=== PATIENT | male | born 1955 | race Caucasian/White ===

== ENCOUNTER 2016-08-09 09:10 | Emergency (ER) | payer OTHER ==
[~2016-08-09] VITALS: Ht 177.8 cm; Wt 115.8 kg
[~2016-08-09 09:10] MED LIST: ATOR-24 PO; CITA20TA4 PO; DIPH1TAB87 PO; FAMO20TA11 PO; NAPR-1169 PO; PRLSR20 PO
[2016-08-09 09:13] VITALS: Ht 177.8 cm; Wt 115.8 kg
[2016-08-09] MEDS ORDERED: SODIUM CHLORIDE 0.9% 1000ML 1,000 ML IV STA (10:07)
[2016-08-09] MEDS ORDERED: OPTIRAY 320 IV PRN (10:15)
[2016-08-09 10:24] LABS: HEMATOCRIT 46.3 % (42-52); MEAN CELL VOLUME 91.3 fL (80-100); MEAN CORPUSCULAR HGB CONC 33.9 g/dl (32-36); MEAN PLATELET VOLUME 9.4 fL (7.4-10.4); PLATELET COUNT 224 K/uL (130-400); RED BLOOD COUNT 5.07 M/uL (4.7-6.1); WHITE BLOOD COUNT 23.26 K/uL (4.8-10.8)
[2016-08-09 10:41] LABS: ALT/SGPT 27 U/L (12-78); BLOOD UREA NITROGEN 20 mg/dl (7-18); BUN/CREATININE RATIO 15.4 (10-20); CALCIUM 8.9 mg/dl (8.5-10.1); CARBON DIOXIDE 22 mmol/L (21-32); CHLORIDE 105 mmol/L (98-107); GLUCOSE 211 mg/dl (70-99); POTASSIUM 4.2 mmol/L (3.5-5.1); SODIUM 139 mmol/L (136-145)
[2016-08-09 10:44] LABS: ALKALINE PHOSPHATASE 99 U/L (45-117); AST/SGOT 15 U/L (15-37); BASO % 0.1 %; BASO ABS # 0.03 K/uL (0-0.2); COMPLETE YES; IG% 0.3 %; LYMPH % 6.1 %; LYMPH ABS # 1.42 K/uL (1.2-3.4); MONO % 4.5 %; OVALOCYTES 1+
[2016-08-09 12:03] LABS: URINE APPEARANCE CLEAR (CLEAR); URINE BILIRUBIN NEG (NEG); URINE COLOR YELLOW; URINE NITRITE NEG (NEG); UROBILINOGEN NEG (NEG); ZZUR CULT IF INDIC CLEAN CATCH NO
[2016-08-09 12:04] LABS: MANUAL MICROSCOPIC REQUIRED? NO; REVIEW REQ? NO
--- NOTE | 2016-08-09 13:26 | DIAGNOSTIC IMAGING REPORT ---
CT ABD/PELVIS IV AND ORAL CONT CLINICAL HISTORY: Left lower quadrant abdominal pain COMPARISON STUDY: None. TECHNIQUE: Following the IV administration of 119 mL of Optiray-320, CT scan of the abdomen and pelvis was performed from the lung bases to the proximal femurs. Images are reviewed in the axial, sagittal, and coronal planes. IV contrast was administered without complication. CT DOSE: 1694.62 mGy.cm FINDINGS: Lower chest: There are borderline enlarged mediastinal lymph nodes. There is right middle lobe consolidation. There is fluid within the right middle lobe bronchus. There are coronary artery calcifications present. Liver: There is mild hepatic steatosis. No focal masses are visualized. Gallbladder: Unremarkable. Spleen: Normal in size and attenuation. Pancreas: There is a 2 cm cystic lesion within the uncinate process. This may represent a sidebranch IPMN. 12 month follow-up is recommended. There is no ductal dilatation. Adrenal glands: Unremarkable. Kidneys: No solid renal masses are visualized. There is a 3 cm left renal cortical cyst. Left renal parapelvic cysts are also visualized. Bowel: There are no transition zones indicate bowel obstruction. By history the appendix is absent. Borderline sigmoid wall thickening is likely secondary to a nondistended segment. There are no findings to indicate acute diverticulitis. Peritoneum: There is no intraperitoneal free air or abdominal ascites. Vasculature: The abdominal aorta is normal in course and caliber. Adenopathy: There are no pathologically enlarged lymph nodes within the abdomen or pelvis. Pelvic viscera: The bladder, and pelvic viscera are unremarkable. Skeletal structures: No destructive osseous lesions are seen. IMPRESSION: 1. No evidence of bowel obstruction. No evidence of free air 2. 2 cm cystic lesion within the pancreatic head, possibly representing IPMN. 12 month follow-up is recommended 3. Borderline sigmoid wall thickening, likely secondary to a nondistended segment 4. No evidence of acute diverticulitis 5. Dense consolidation of the right middle lobe, consistent with a pneumonia. Clinical correlation is advocated. Films subsequent to treatment are recommended in follow-up. 6. Mild mediastinal lymphadenopathy Electronically signed by: Bandar Kaye M.D. 08/09/2016 1:24 PM
--- NOTE | 2016-08-09 14:32 | DIAGNOSTIC IMAGING REPORT ---
CHEST 2 VIEWS ROUTINE CLINICAL HISTORY: cough COMPARISON STUDY: No previous studies for comparison. FINDINGS: There is dense consolidation of the right middle lobe, consistent with a pneumonia. Films subsequent to treatment are recommended in follow-up. There is no failure. There are no pleural effusions.[ IMPRESSION: Right middle lobe pulmonary consolidation consistent with pneumonia. Films subsequent to treatment are recommended in follow-up. Electronically signed by: Bandar Kaye M.D. 08/09/2016 2:30 PM
[2016-08-09] MEDS ORDERED: LEVO-366 PO (15:00)
[2016-08-09] MEDS ORDERED: LEVOFLOXACIN 250 MG TAB PO STA (15:06)
--- NOTE | 2016-08-09 15:06 | EMERGENCY ROOM VISIT NOTE ---
History First contact with patient: 09:36 Chief Complaint: ILLNESS Stated Complaint: COUGH,NAUSEA,WEAKNESS,BODY ACHES History of Present Illness The patient is a 61 year old male who presents to the Emergency Room with complaints of body aches, intermittent coughing for one week. The patient states that today he became nauseated and vomited twice. He also is complaining of left lower abdominal pain. The patient denies any change in bowel habits. The patient denies any urinary symptoms of frequency, urgency, dysuria. The patient denies any known fever. The patient had an appendectomy in the past. The patient denies any history of kidney stones. Review of Systems 10 system review was performed and was negative unless stated otherwise history of present illness. Past Medical/Surgical History Medical Problems: (1) GERD (gastroesophageal reflux disease) (2) Hyperlipidemia (3) Hypertension Surgical Problems: (1) History of arthroscopic knee surgery Family History Patient reports no known family medical history. Social History Smoking Status: Never Smoker Alcohol Use: occasionally Drug Use: none Marital Status: Occupation Status: employed Current/Historical Medications Scheduled Atorvastatin (Lipitor), 40 MG PO DAILY AFTERNOON Citalopram Hydrobromide (Citalopram Hydrobromide), 20 MG PO HS Levofloxacin (Levaquin), 500 MG PO DAILY Naproxen (Naprosyn), 500 MG PO BID Omeprazole (Prilosec), 20 MG PO QAM Scheduled PRN Famotidine (Pepcid), 20 MG PO DAILY PRN for PRN Allergies Coded Allergies: Lisinopril (Unverified Allergy, Intermediate, LIPS SWELL, 08/09/16) Physical Exam Vital Signs Date Time Temp Pulse Resp B/P Pulse Ox O2 Delivery O2 Flow Rate FiO2 08/09/16 12:59 85 18 123/80 96 Room Air 08/09/16 10:59 84 16 120/75 95 Room Air 08/09/16 09:13 37.0 110 20 123/79 94 Room Air Physical Exam GENERAL: 61-year-old white male appears in no acute distress. MENTAL Status: Alert and oriented 3. MOUTH: Mucosa is moist NECK: Supple, no lymphadenopathy noted. No carotid bruits noted. LUNGS: Clear auscultation without wheezes rales or rhonchi. CARDIAC: Regular rate and rhythm without murmur. Pulses is full and equal throughout. BACK: No CVA tenderness noted. ABDOMEN: Positive bowel sounds all 4 quadrants. Soft, tenderness palpation in the left lower quadrant otherwise nontender to palpation without organomegaly or masses. EXTREMITIES: No cyanosis or edema noted. Medical Decision & Procedures ER Provider Diagnostic Interpretation: CT ABD/PELVIS IV AND ORAL CONT CLINICAL HISTORY: Left lower quadrant abdominal pain COMPARISON STUDY: None. TECHNIQUE: Following the IV administration of 119 mL of Optiray-320, CT scan of the abdomen and pelvis was performed from the lung bases to the proximal femurs. Images are reviewed in the axial, sagittal, and coronal planes. IV contrast was administered without complication. CT DOSE: 1694.62 mGy.cm FINDINGS: Lower chest: There are borderline enlarged mediastinal lymph nodes. There is right middle lobe consolidation. There is fluid within the right middle lobe bronchus. There are coronary artery calcifications present. Liver: There is mild hepatic steatosis. No focal masses are visualized. Gallbladder: Unremarkable. Spleen: Normal in size and attenuation. Pancreas: There is a 2 cm cystic lesion within the uncinate process. This may represent a sidebranch IPMN. 12 month follow-up is recommended. There is no ductal dilatation. Adrenal glands: Unremarkable. Kidneys: No solid renal masses are visualized. There is a 3 cm left renal cortical cyst. Left renal parapelvic cysts are also visualized. Bowel: There are no transition zones indicate bowel obstruction. By history the appendix is absent. Borderline sigmoid wall thickening is likely secondary to a nondistended segment. There are no findings to indicate acute diverticulitis. Peritoneum: There is no intraperitoneal free air or abdominal ascites. Vasculature: The abdominal aorta is normal in course and caliber. Adenopathy: There are no pathologically enlarged lymph nodes within the abdomen or pelvis. Pelvic viscera: The bladder, and pelvic viscera are unremarkable. Skeletal structures: No destructive osseous lesions are seen. IMPRESSION: 1. No evidence of bowel obstruction. No evidence of free air 2. 2 cm cystic lesion within the pancreatic head, possibly representing IPMN. 12 month follow-up is recommended 3. Borderline sigmoid wall thickening, likely secondary to a nondistended segment 4. No evidence of acute diverticulitis 5. Dense consolidation of the right middle lobe, consistent with a pneumonia. Clinical correlation is advocated. Films subsequent to treatment are recommended in follow-up. 6. Mild mediastinal lymphadenopathy Electronically signed by: Bandar Kaye M.D. 08/09/2016 1:24 PM Laboratory Results 1/2/17 10:15 Red Blood Count 5.07, Mean Corpuscular Volume 91.3, Mean Corpuscular Hemoglobin 31.0, Mean Corpuscular Hemoglobin Concent 33.9, Mean Platelet Volume 9.4, Neutrophils (%) (Auto) 89.0, Lymphocytes (%) (Auto) 6.1, Monocytes (%) (Auto) 4.5, Eosinophils (%) (Auto) 0.0, Basophils (%) (Auto) 0.1, Neutrophils # (Auto) 20.69, Lymphocytes # (Auto) 1.42, Monocytes # (Auto) 1.04, Eosinophils # (Auto) 0.01, Basophils # (Auto) 0.03 08/09/16 10:15 Test 08/09/16 10:15 08/09/16 11:46 White Blood Count 23.26 K/uL (4.8-10.8) Red Blood Count 5.07 M/uL (4.7-6.1) Hemoglobin 15.7 g/dL (14.0-18.0) Hematocrit 46.3 % (42-52) Mean Corpuscular Volume 91.3 fL (80-100) Mean Corpuscular Hemoglobin 31.0 pg (25-34) Mean Corpuscular Hemoglobin Concent 33.9 g/dl (32-36) Platelet Count 224 K/uL (130-400) Mean Platelet Volume 9.4 fL (7.4-10.4) Neutrophils (%) (Auto) 89.0 % Lymphocytes (%) (Auto) 6.1 % Monocytes (%) (Auto) 4.5 % Eosinophils (%) (Auto) 0.0 % Basophils (%) (Auto) 0.1 % Neutrophils # (Auto) 20.69 K/uL (1.4-6.5) Lymphocytes # (Auto) 1.42 K/uL (1.2-3.4) Monocytes # (Auto) 1.04 K/uL (0.11-0.59) Eosinophils # (Auto) 0.01 K/uL (0-0.5) Basophils # (Auto) 0.03 K/uL (0-0.2) RDW Standard Deviation 49.7 fL (36.4-46.3) RDW Coefficient of Variation 14.8 % (11.5-14.5) Immature Granulocyte % (Auto) 0.3 % Immature Granulocyte # (Auto) 0.07 K/uL (0.00-0.02) Ovalocytes 1+ Anion Gap 12.0 mmol/L (3-11) Est Creatinine Clear Calc Drug Dose 74.1 ml/min Estimated GFR () 67.3 Estimated GFR (Non- 58.1 BUN/Creatinine Ratio 15.4 (10-20) Calcium Level 8.9 mg/dl (8.5-10.1) Total Bilirubin 0.5 mg/dl (0.2-1) Direct Bilirubin < 0.1 mg/dl (0-0.2) Aspartate Amino Transf (AST/SGOT) 15 U/L (15-37) Alanine Aminotransferase (ALT/SGPT) 27 U/L (12-78) Alkaline Phosphatase 99 U/L (45-117) Total Protein 7.7 gm/dl (6.4-8.2) Albumin 3.2 gm/dl (3.4-5.0) Lipase 73 U/L (73-393) Urine Color YELLOW Urine Appearance CLEAR (CLEAR) Urine pH 5.0 (4.5-7.5) Urine Specific Lehr 1.010 (1.000-1.030) Urine Protein 1+ (NEG) Urine Glucose (UA) NEG (NEG) Urine Ketones NEG (NEG) Urine Occult Blood NEG (NEG) Urine Nitrite NEG (NEG) Urine Bilirubin NEG (NEG) Urine Urobilinogen NEG (NEG) Urine Leukocyte Esterase NEG (NEG) Urine WBC (Auto) 1-5 /hpf (0-5) Urine RBC (Auto) 0-4 /hpf (0-4) Urine Hyaline Casts (Auto) 1-5 /lpf (0-5) Urine Epithelial Cells (Auto) 10-20 /lpf (0-5) Urine Bacteria (Auto) NEG (NEG) Medications Administered Medications (Trade) Dose Ordered Sig/Salma Route Start Time Stop Time Status Last Admin Dose Admin Sodium Chloride (Nss 1000ml) 1,000 ml @ 999 mls/hr Q1H1M STAT IV 08/09/16 10:07 08/09/16 11:07 DC 08/09/16 10:19 999 MLS/HR ED Course The patient was evaluated. The patient was offered antinausea medicine as well as pain medication but the patient declined. IV access was obtained. The patient was given 1 L normal saline wide-open. CBC and differential, renal profile, LFTs and lipase levels were ordered. Labs are reviewed. Patient's white count was elevated 23,000 otherwise labs are unremarkable. Urinalysis was ordered. CT of the abdomen and pelvis was ordered and interpreted by the radiologist as above with findings of right middle lobe pneumonia and other incidental findings which the patient was informed of immediately. Patient was informed of all findings. The patient's case was discussed with Dr. Mcgovern who agree with treatment plan. The patient was given Levaquin 500 mg by mouth while in the emergency room. The patient was discharged to home in stable condition.. Medical Decision Differential diagnoses include reflux, gastritis, gastroenteritis, pancreatitis , cholelithiasis, cholecystitis,, mesenteric ischemia, pyelonephritis, urinary tract infection, renal colic, diverticulitis, shingles, bowel obstruction, intussusception, hernia, , pneumonia, influenza Impression Primary Impression: Pneumonia Additional Impression: cystic lesion pancreas Departure Information Dispostion Home / Self-Care Condition GOOD Prescriptions Levofloxacin (Levaquin) 500 Mg Tab 500 MG PO DAILY for 6 Days, #6 TAB Prov: Beatrice Langley PA-C 08/09/16 Referrals Megan Ambriz M.D. (PCP) Forms HOME CARE DOCUMENTATION FORM, IMPORTANT VISIT INFORMATION, WORK / SCHOOL INSTRUCTIONS Patient Instructions A Signature Page, [facility], Pneumonia (Bacterial[facility] - [facility] Additional Instructions Tylenol and/or ibuprofen as needed for fever and body aches. Take Levaquin as prescribed. Follow-up with your family physician in 2 days for recheck. At that time they can set up follow-up chest x-ray as well as repeat CT of the abdomen for evaluation of cystic lesion on her pancreas. If symptoms should worsen, return to ER.
[2016-08-09 15:27] VITALS: BP 123/80; PULSE 85; TEMP 37; O2SAT 96
[2016-10-07] MEDS ORDERED: TRMO2580 TOP (09:08)
[2016-10-23] MEDS ORDERED: RXC5 PO (08:09)
== END 2016-08-09 15:28 | disposition home or self-care (01) ==
LOC: C.EDB 09:11
DX: J18.9 Pneumonia, unspecified organism (principal); K86.2 Cyst of pancreas; R11.10 Vomiting, unspecified; I10 Essential (primary) hypertension; E78.5 Hyperlipidemia, unspecified; K21.9 Gastro-esophageal reflux disease without esophagitis; Z79.899 Other long term (current) drug therapy

== ENCOUNTER 2016-10-22 06:00 | Inpatient (IN) | payer OTHER ==
[2016-10-07 09:09] VITALS: BMI 38.0
--- NOTE | 2016-10-07 09:55 | PAT Medication Instructions ---
Service Date Oct 07, 2016. Current Home Medication List Atorvastatin (Lipitor), 40 MG PO QAM Citalopram Hydrobromide (Citalopram Hydrobromide), 20 MG PO QAM Naproxen (Naprosyn), 500 MG PO QAM Omeprazole (Prilosec), 20 MG PO BID Triamcinolone Acetonide (Topic (Triamcinolone Acet 0.025%), 1 APPLN TOP BID PRN for PRN Medication Instructions For Your Scheduled Surgery - Check with surgeon for instructions: Naproxen (Naprosyn), 500 MG PO QAM - Hold the following medications 24 hours prior to surgery: Triamcinolone Acetonide (Topic (Triamcinolone Acet 0.025%), 1 APPLN TOP BID PRN for PRN - Take the following medications the morning of surgery with a sip of water: Omeprazole (Prilosec), 20 MG PO BID Atorvastatin (Lipitor), 40 MG PO QAM Citalopram Hydrobromide (Citalopram Hydrobromide), 20 MG PO QAM - Take the following medications as scheduled the night before surgery: Omeprazole (Prilosec), 20 MG PO BID If you have any questions please call us at [phone] (Rebecca Cooper PA-C) or [phone] or [phone]
[2016-10-07 10:22] LABS: BASO % 0.3 %; BASO ABS # 0.03 K/uL (0-0.2); COMPLETE YES; EOS % 2.8 %; HEMATOCRIT 42.1 % (42-52); IG% 0.2 %; LYMPH % 27.9 %; LYMPH ABS # 2.73 K/uL (1.2-3.4); MEAN CELL VOLUME 90.9 fL (80-100); MEAN CORPUSCULAR HEMOGLOBIN 30.9 pg (25-34); MEAN PLATELET VOLUME 9.3 fL (7.4-10.4); MONO % 8.3 %; NEUT % 60.5 %; PLATELET COUNT 270 K/uL (130-400); RED BLOOD COUNT 4.63 M/uL (4.7-6.1); WHITE BLOOD COUNT 9.79 K/uL (4.8-10.8)
[2016-10-07 10:30] LABS: PARTIAL THROMBOPLASTIN RATIO 1.2; PROTHROMBIN TIME (PATIENT) 10.7 SECONDS (9.0-12.0)
--- NOTE | 2016-10-07 10:30 | DIAGNOSTIC IMAGING REPORT ---
CHEST PREADMISSION(PA/LAT) CLINICAL HISTORY: Preoperative evaluation. COMPARISON STUDY: Chest radiograph August 09, 2016. FINDINGS: Lung volumes are normal. There is no pneumothorax or pleural effusion. Right lower lung airspace opacity shown on exam of August 09, 2016 has resolved. There is no evidence of pulmonary edema. Mild cardiomegaly is noted. IMPRESSION: 1. No acute cardiopulmonary findings. 2. Interval resolution of right middle lobe pneumonia. 3. Mild cardiomegaly. Electronically signed by: Ras Manriquez M.D. 10/07/2016 10:29 AM Dictated Date/Time: 10/07/2016 10:28 AM
[2016-10-07 10:32] LABS: URINE APPEARANCE CLEAR (CLEAR); URINE BILIRUBIN NEG (NEG); URINE COLOR DK YELLOW; URINE EPITHELIAL CELL AUTO 20-30 /lpf (0-5); URINE NITRITE NEG (NEG); URINE SPECIFIC GRAVITY 1.024 (1.000-1.030); UROBILINOGEN NEG (NEG)
[2016-10-07 10:34] LABS: MANUAL MICROSCOPIC REQUIRED? NO; REVIEW REQ? NO
[2016-10-07 10:48] LABS: CALCIUM 8.8 mg/dl (8.5-10.1); CREATININE 0.9 mg/dl (0.60-1.40); POTASSIUM 4.5 mmol/L (3.5-5.1)
--- NOTE | 2016-10-20 17:07 | HISTORY & PHYSICAL EXAMINATION ---
DATE OF ADMISSION: 10/22/2016 CHIEF COMPLAINT: Rotator cuff arthropathy of the left shoulder. HISTORY OF PRESENT ILLNESS: Landon is a very pleasant 61-year-old male who has been complaining a 40-year history of left shoulder pain. Over the last year his shoulder pain has gotten much worse. He has had multiple injections with very little relief. An MRI of his shoulder did show a retracted irreparable rotator cuff tear. He is unable to sleep at night. He has difficulty doing simple daily activities and is unable to raise his arm above chest level. After failing extensive conservative treatment, he has elected to proceed with a reverse shoulder arthroplasty. 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 PAST SURGICAL HISTORY: Significant for tonsillectomy in 1957, appendectomy in 1969, bilateral knee arthroscopies. ALLERGIES: LISINOPRIL. MEDICATIONS: Include Celexa 20 mg daily, Lipitor 40 mg daily, Naprosyn as needed for pain, triamcinolone cream as needed. FAMILY HISTORY: Noncontributory. SOCIAL HISTORY: Denies any tobacco, alcohol or IV drug use. REVIEW OF SYSTEMS: He complains of left shoulder pain. All other pertinent review of systems are negative. PHYSICAL EXAMINATION: GENERAL: He is awake, alert and oriented x3. He is in no apparent distress. He is very pleasant. HEAD, EYES, EARS, NOSE, AND THROAT: Pupils are equal, round and reactive to light. Extraocular motion intact. Oral mucosa is pink and moist. HEART: Regular rate per radial pulse. LUNGS: Estrella symmetrically bilaterally with no audible breath sounds. ABDOMEN: Soft, nontender, nondistended. MUSCULOSKELETAL: On physical examination of his left shoulder, he has about 30 degrees of forward elevation, 30 degrees of abduction. Passively I can get him a little further, but he has a lot of pain. He has a lot of pain in the subacromial space and 4/5 muscle strength with external rotation, 3/5 muscle strength to full can testing and negative belly press test. MRI of the left shoulder does show a large retracted rotator cuff tear involving the entire supraspinatus and infraspinatus retracted back to the level of the glenoid with significant fat atrophy. IMPRESSION: Rotator cuff arthropathy of the left shoulder. PLAN: After failing years of conservative treatment and given his significantly limited functional status, I think he is best treated with a reverse shoulder arthroplasty. We will proceed with a [employer] comprehensive reverse shoulder arthroplasty. Postoperatively, he will be placed in a sling and kept overnight for postoperative medical treatment.
[~2016-10-22] VITALS: Ht 177.8 cm; Wt 121.2 kg
[2016-10-22] VITALS (10 sets, daily range): BP systolic 108–140; BP diastolic 71–93; PULSE 69–84; TEMP 36.4–36.7; O2SAT 93–100; Ht 177.8 cm; Wt 121.2 kg
[~2016-10-22 06:00] MED LIST changes: +ACETAMINOPHEN 500 MG TAB PO SCH; +CEFAZOLIN 3000 MG/65 ML D5W 65 ML IV SCH; -DIPH1TAB87 PO; -FAMO20TA11 PO; +FAMOTIDINE 20 MG TAB PO SCH; +GABAPENTIN 300 MG CAP PO SCH; +LACTATED RINGER'S 1000ML 1,000 ML IV SCH; +LACTATED RINGER'S 1000ML IV SCH; +ROPIVACAINE 5MG/ML 30 ML 150 MG, BUPIVACAINE/EPINEPHR 0.5% MPF 30 ML, KETOROLAC TROMETH... INFIL SCH; +TRMO2580 TOP
--- NOTE | 2016-10-22 06:57 | History & Physical Bridge Note ---
H&P Re-Evaluation Bridge Note: I have examined the patient, reviewed the History & Physical and in the interval since the performance of the History & Physical I have noted the following changes of clinical significance: No changes noted
[2016-10-22] MEDS ORDERED: FENTANYL CITRATE INJ 50 MCG/1 ML 2 ML VIAL ONE (07:05)
[2016-10-22] MEDS ORDERED: MIDAZOLAM HCL 1 MG/ML 2ML VIAL ONE (07:05)
[2016-10-22] MEDS ORDERED: ROPIVACAINE 0.5% 5 MG/ML 30 ML VIAL ONE (07:13)
[2016-10-22] MEDS ORDERED: ACET-1256 PO (07:23)
[2016-10-22] MEDS ORDERED: PROPOFOL IV EMULSION 10 MG/ML 20 ML VIAL IV ONE (07:31)
[2016-10-22] MEDS ORDERED: ROCURONIUM BROMIDE 10 MG/ML 5 ML VIAL ONE (07:31)
[2016-10-22] MEDS: TRANEXAMIC ACID INJ 1,000 MG in SODIUM CHLORIDE 0.9% 100ML 100 ML IV SCH ×2 (08:17→13:32)
[2016-10-22] MEDS ORDERED: BUPIVACAINE/EPINEPHRINE 0.5% MPF 1:200,000 30 ML VIAL ONE (09:13)
[2016-10-22] MEDS ORDERED: BACITRACIN 50000 UNIT VIAL ONE (09:14)
[2016-10-22] MEDS ORDERED: ORTHO JOINT ANESTHETIC ONE (09:29)
[2016-10-22] MEDS ORDERED: FENTANYL CITRATE INJ 50 MCG/1 ML 2 ML VIAL IV PRN (09:45)
[2016-10-22] MEDS ORDERED: ATROPINE SULFATE 0.1 MG/ML 5ML SYR IV PRN (09:45)
[2016-10-22] MEDS ORDERED: ONDANSETRON INJ 2 MG/ML 2 ML VIAL IV PRN ×2 (09:45→10:00)
[2016-10-22] MEDS ORDERED: EpHEDrine SULFATE INJ 50 MG/ML AMP IV PRN (09:45)
[2016-10-22] MEDS ORDERED: BISACODYL 10 MG SUPP PR PRN (10:00)
[2016-10-22] MEDS ORDERED: MAGNESIUM HYDROXIDE SUSP 30 ML UDC PO PRN (10:00)
[2016-10-22] MEDS ORDERED: SOD PHOSPHATE/SOD BIPHOSPHATE ENEMA 132 ML BTL PR PRN (10:00)
[2016-10-22] MEDS ORDERED: NALOXONE HCL 0.4 MG/1 ML VIAL/CARP IV PRN (10:00)
[2016-10-22] MEDS ORDERED: METOCLOPRAMIDE HCL INJ 5 MG/ML 2 ML VIAL IV PRN (10:00)
[2016-10-22] MEDS ORDERED: MoRPHine SULFATE 2 MG/ML CARP IV PRN (10:00)
[2016-10-22] MEDS ORDERED: DEXAMETHASONE SOD INJ 4 MG/ML VIAL ONE (10:10)
[2016-10-22] MEDS ORDERED: GLYCOPYRROLATE INJ 0.2 MG/ML VIAL ONE (10:10)
[2016-10-22] MEDS ORDERED: NEOSTIGMINE METHYLSULFATE 5 MG/5 ML SYR ONE (10:10)
[2016-10-22] MEDS ORDERED: ONDANSETRON INJ 2 MG/ML 2 ML VIAL ONE (10:10)
[2016-10-22] MEDS ORDERED: VANCOMYCIN HCL 1000MG/20ML VIAL ONE (10:49)
[2016-10-22] MEDS ORDERED: EpHEDrine SULFATE 50MG/5ML SYR ONE (11:15)
[2016-10-22] MEDS ORDERED: PHENYLEPHRINE 100MCG/ML 5ML SYR ONE (11:15)
--- NOTE | 2016-10-22 12:38 | DIAGNOSTIC IMAGING REPORT ---
LEFT SHOULDER MIN 2 VIEWS ROUTINE CLINICAL HISTORY: Postoperative evaluation. COMPARISON: Left shoulder radiographs October 06, 2016. FINDINGS: Alignment of the left shoulder arthroplasty is anatomic. A drain is in place. There is no fracture or unexpected radiopaque foreign body. IMPRESSION: Expected findings following left shoulder arthroplasty. Electronically signed by: Ras Manriquez M.D. 10/22/2016 12:37 PM Dictated Date/Time: 10/22/2016 12:25 PM
--- NOTE | 2016-10-22 13:06 | Anesthesiology Progress Note ---
Anesthesia Post Op Note Date & Time Oct 22, 2016 at 13:07 Vital Signs Pain Intensity: 0 Vital Signs Past 12 Hours Date Time Temp Pulse Resp B/P Pulse Ox O2 Delivery O2 Flow Rate FiO2 10/22/16 12:59 36.5 82 17 125/92 98 Nasal Cannula 2.0 10/22/16 12:20 36.4 73 14 134/89 98 Nasal Cannula 2 10/22/16 12:10 80 19 136/92 98 Nasal Cannula 2 10/22/16 12:00 79 22 145/96 100 Mask 10 10/22/16 11:50 75 14 155/100 100 Mask 10 10/22/16 11:41 36.0 78 14 149/94 99 Mask 10 10/22/16 07:09 36.7 84 20 129/93 96 Room Air Notes Mental Status: alert / awake / arousable, participated in evaluation Pt Amnestic to Procedure: Yes Nausea / Vomiting: adequately controlled Pain: adequately controlled Airway Patency, RR, SpO2: stable & adequate BP & HR: stable & adequate Hydration State: stable & adequate Anesthetic Complications: no major complications apparent
--- NOTE | 2016-10-22 13:25 | [facility] Post Operative Brief Note ---
Immediate Operative Summary Operative Date Oct 22, 2016. Pre-Operative Diagnosis Rotator cuff arthropathy of the left shoulder Post-Operative Diagnosis Rotator cuff arthropathy of the left shoulder Procedure(s) Performed Left reverse total shoulder arthroplasty Surgeon Dr. Frandy Berman Credit Compliance Officer Surgeon(s) Armond Glover PA-C Estimated Blood Loss 250cc Findings as above Specimens A. Left humeral head Complication(s) None Disposition Recovery Room / PACU
[2016-10-22] MEDS: D5W AND 1/2NSS + 20MEQ KCL 1,000 ML IV SCH ×2 (13:34→22:59)
--- NOTE | 2016-10-22 14:22 | OPERATIVE REPORT ---
DATE OF OPERATION: 10/22/2016 PREOPERATIVE DIAGNOSIS: Rotator cuff arthropathy of the left shoulder. POSTOPERATIVE DIAGNOSIS: Same. PROCEDURE: Left reverse total shoulder arthroplasty. SURGEON: Dr. Frandy Berman. GENERAL INTERNIST: Eric Glover PA-C, whose assistance was necessary for positioning the arm and helping with instrumentation. ANESTHESIA: General with a left interscalene nerve block. COMPLICATIONS: None. CONDITION: Stable to PACU. INDICATIONS: Landon is a pleasant 61-year-old male who presented to my office with chronic increasing left shoulder pain and inability to forward elevate his arm. MRI showed a large retracted irreparable rotator cuff tear. After failing conservative treatment, he elected to undergo a reverse shoulder arthroplasty. DESCRIPTION OF PROCEDURE: On 10/22/2016, he arrived at [facility] for the above procedure. He was seen in the preoperative holding area and the operative extremity was identified and signed. He was then taken back to the operating room, laid on the table in supine position and put under general anesthesia. He was then put into the beachchair position. The left shoulder was prepped and draped in sterile fashion. Time-out was done and the patient and operative extremity was properly identified. A deltopectoral approach was utilized. Dissection was taken down through the fascia and the anterior shoulder was exposed. The subscapularis was tenotomized off the lesser tuberosity with a centimeter of cuff tissue remaining and the proximal humerus was exposed. The supraspinatus and infraspinatus had been completely torn off. A drill was sent down the center of the humeral canal and sequential reaming up to a size 13 reamer was done. Off that reamer, a proximal humeral resection guide was placed and the proximal humerus was resected at 135 degrees of inclination and 20 degrees of retroversion. The glenoid was then exposed. Time was spent doing a complete circumferential capsular and labral release. A guide was set in the inferior aspect of the glenoid and a guidepin was placed at 10 degrees of inclination. The 25-mm baseplate was then reamed and the final baseplate was impacted into place. A single 35-mm central screw was placed followed by superior and inferior locking screw. I was able to get excellent fixation. A 41-mm standard eccentric glenosphere was then impacted into place. The proximal humerus was then exposed. Sequential broaching up to a size 13 broach was done. Off the broach, a standard humeral tray was placed. The shoulder was reduced, brought through a full range of motion and felt to be stable. Trials were removed. The final 13-mm mini stem was then impacted into place. The 44 poly was snapped onto the humeral tray and the ring lock mechanism was engaged. The humeral tray was impacted on the humeral stem. The shoulder was reduced, brought through a full range of motion and felt to be stable. The entire joint was then irrigated with 3 liters of normal saline solution with bacitracin. Surrounding soft tissues were all injected with 100 mL of an orthopedic pain control cocktail. The subscapularis was tenodesed back to the lesser tuberosity with transosseous FiberWire sutures and [id number] sutures. The shoulder was once again brought through a full range of motion and felt to be stable. Hemostasis was controlled. One gram of vancomycin powder was placed in the soft tissues. The skin was then closed with 2-0 Vicryl and 3-0 V-Loc suture and Prineo dressing. He was then placed in a regular arm sling, extubated, transferred to a [facility] and taken to the postanesthesia care unit in stable condition. He tolerated the procedure well. IMPLANTS USED: I used a [employer] comprehensive reverse left total shoulder arthroplasty system with a 25-mm mini baseplate, a 41 standard eccentric glenosphere, a size 13 mini stem and a standard humeral tray and bearing. No cement was used during the case. I attest to the content of the Intraoperative Record and any orders documented therein. Any exceptio ns are noted below.
[2016-10-22] MEDS: KETOROLAC TROMETHAMINE 30 MG/ML VIAL IV. SCH ×2 (15:12→20:24)
[2016-10-22] MEDS: ACETAMINOPHEN IV 1,000 MG in EMPTY BAG 0 ML IV SCH (15:12)
[2016-10-22] MEDS ORDERED: PNEUMOCOCCAL ADMINISTRATION CHARGE ONE (16:15)
[2016-10-22] MEDS ORDERED: PNEUMOCOCCAL POLYSACCHARIDES 25 MCG/0.5 ML VIAL/SYR IM. ONE (16:15)
[2016-10-22] MEDS: CEFAZOLIN IV 2,000 MG in DEXTROSE 5% 50ML 50 ML IV SCH (17:33)
[2016-10-22] MEDS: DOCUSATE SODIUM 100 MG CAP PO SCH (20:25)
[2016-10-22] MEDS ORDERED: SENNA 8.6 MG TAB PO SCH (21:00)
[2016-10-23] MEDS: ACETAMINOPHEN IV 1,000 MG in EMPTY BAG 0 ML IV SCH ×2 (00:11→08:18)
[2016-10-23] MEDS: CEFAZOLIN IV 2,000 MG in DEXTROSE 5% 50ML 50 ML IV SCH (01:36)
[2016-10-23] MEDS: KETOROLAC TROMETHAMINE 30 MG/ML VIAL IV. SCH ×2 (01:36→08:18)
[2016-10-23 03:50] VITALS: BP 116/73; PULSE 71; TEMP 36.4; O2SAT 96
[2016-10-23] MEDS: OXYCODONE HCL IR 5 MG TAB (IMMEDIATE RELEASE) PO PRN ×2 (04:20→09:30)
[2016-10-23 05:51] LABS: HEMATOCRIT 37.7 % (42-52); MEAN CORPUSCULAR HEMOGLOBIN 31.2 pg (25-34); MEAN PLATELET VOLUME 9.7 fL (7.4-10.4); PLATELET COUNT 242 K/uL (130-400); WHITE BLOOD COUNT 14.57 K/uL (4.8-10.8)
[2016-10-23 06:23] LABS: CALCIUM 8.7 mg/dl (8.5-10.1); POTASSIUM 4.5 mmol/L (3.5-5.1)
[2016-10-23 07:59] VITALS: BP 116/74; PULSE 65; TEMP 36.5; O2SAT 94
[2016-10-23] MEDS ORDERED: RXC5 PO (08:09)
--- NOTE | 2016-10-23 08:11 | Discharge Instructions ---
Discharge Instructions Date of Service Oct 23, 2016. Admission Reason for Admission: Left Shoulder Pain, Full Thickness Rotator Cuff Te Discharge Discharge Diagnosis / Problem: Left Reverse Total Shoulder Discharge Goals Goal(s): Decrease discomfort, Improve function Activity Recommendations Activity Limitations: as noted below Shower/Bathe: may shower/bathe in 3 days . Instructions / Follow-Up Instructions / Follow-Up Activity and Therapy Recommendations: * Wear your sling for 3 weeks, unless otherwise instructed. You may remove your sling to shower and to dress, but otherwise, you should be in your sling at all times, including while sleeping * The shoulder replacement is very stable and you can use your hand while in the sling * Physical Therapy should start about 3-5 days from your day of surgery. Therapy will last about 8-12 weeks * You were shown a series of exercises in the hospital. Do these exercises daily including the exercises you were shown in physical therapy. Medications: * Narcotic You will likely be sent home from the hospital with a prescription for the narcotic pain medication that worked best throughout your stay. * Other medications may be prescribed for specific circumstances. If you have any questions, please call the office at . * Resume previous home medications unless otherwise instructed Dressing Care: You will likely have a Prineo dressing covering your incision. This looks like a glued on clear mesh dressing. Do not remove this dressing until you follow- up in my office in 2-3 weeks. Its pretty hard to peel it off. You may leave the Prineo dressing uncovered or cover it if it is draining a little bit. No further dressing care is required Showering: You may shower 3 days from the day of surgery. Leave the Prineo dressing intact and let the soapy shower water run over it. Do not scrub or soak the dressing or the incision. Things To Watch For: * Drainage from the incision site that occurs more than one week after your surgery. * Increased redness at the incision site. * Fever above 102 degrees Fahrenheit. * Unusual chest pain or shortness of breath. * Call [facility] at with any of the above problems Follow-Up Visit: Follow-up with Dr. Berman 2-3 weeks after your day of surgery. An appointment was probably scheduled when you signed-up for surgery in the office. If you have any questions call Office Instructions: More detailed instructions as well as Frequently Asked Questions were provided in a folder by our office when you signed-up for surgery. Please review these instructions when you get home. If you have any further questions or concerns, please feel free to call the office at [phone] Current Hospital Diet Patient's current hospital diet: Regular Diet Discharge Diet Recommended Diet: Regular Diet Procedures Procedures Performed: Left reverse total shoulder arthroplasty Pending Studies Studies pending at discharge: no Medical Emergencies . Who to Call and When: Medical Emergencies: If at any time you feel your situation is an emergency, please call 911 immediately. . Non-Emergent Contact Non-Emergency issues call your: Surgeon Call Non-Emergent contact if: wound has increased drainage, wound has increased redness . "Provider Documentation" section prepared by Frandy Berman. VTE Core Measure Inpt VTE Proph given/why not?: Treatment not indicated
[2016-10-23] MEDS: DOCUSATE SODIUM 100 MG CAP PO SCH (08:20)
--- NOTE | 2016-10-23 08:42 | DISCHARGE SUMMARY ---
DATE OF DISCHARGE: 10/23/2016. DISCHARGE DIAGNOSIS: Cuff arthropathy of the left shoulder. PROCEDURE: Left reverse shoulder arthroplasty on 10/22/[address] Frandy Berman. DISCHARGE INSTRUCTIONS: 1. Oxycodone 5 mg every 4 hours as needed for pain. 2. Tylenol 1000 mg every 8 hours as needed. 3. Lipitor 40 mg daily. 4. Celexa 20 mg daily. 5. Naprosyn 500 mg daily. 6. Prilosec 20 mg twice a day. 7. Triamcinolone cream as needed. 8. Left arm sling for 3 weeks. 9. Follow up with Dr. Berman in 2 weeks. 10. May shower 3 days from the day of surgery. 11. Call the office of Dr. Berman with any questions or concerns. HOSPITAL COURSE: Landon is a pleasant 61-year-old male who presented to my office with significant shoulder pain and weakness. MRI and clinical examination showed irreparable rotator cuff tear. After failing years of conservative treatment, he elected to undergo a reverse left shoulder arthroplasty. On 10/22/2016 he arrived at [facility] for the above procedure. He was seen in the preoperative holding area and the operative extremity was identified and signed. He was given a preoperative antibiotic and underwent a left reverse shoulder arthroplasty without complications. Postoperatively, he was placed in an arm sling and discharged to general orthopedic floor. His hospital course was uneventful. On postop day #1, his H\T\H was stable at 12.8 and 37.7. He was having mild pain in the shoulder but was controlled on the oxycodone. He is wearing his sling as instructed. He was able to participate well with physical therapy and was subsequently discharged to home with the above instructions.
--- NOTE | 2016-10-23 08:44 | PROGRESS NOTE ---
DATE: 10/23/2016 DATE: 10/23/2016. CHIEF COMPLAINT: Status post reverse left shoulder arthroplasty postop day #1. PROGRESS: Landon was seen and examined at bedside today. Overall, he is doing very well. He says he really does not have much pain in his shoulder. He is wearing a sling as instructed. He was able to get some sleep last night and has no complaints. PHYSICAL EXAMINATION: LEFT SHOULDER: The radial, median and ulnar nerves were all checked and intact. The axillary nerve was not definitively checked yet. He is wearing his sling as instructed. His dressing is clean and dry and the drain is to suction. LABORATORY DATA: He has an H\T\H today of 12.8 and 37.7. His glucose is 126. His vital signs are all stable on room air. He is voiding on his own. X-rays postoperatively of the left shoulder showed the prosthesis to be in anatomical alignment without any evidence of fracture, dislocation or loosening. IMPRESSION: Status post reverse left shoulder arthroplasty postop day #1. PLAN: At this point, he is doing very well. He is happy with his progress. He will get physical therapy this morning. If he participates well with physical therapy will discharge him home.
[2016-10-23] MEDS ORDERED: MULTIVITAMIN TAB PO SCH (09:00)
[2016-10-23] MEDS ORDERED: ATORVASTATIN 40 MG TAB PO SCH (09:00)
[2016-10-23] MEDS ORDERED: CITALOPRAM 20 MG TAB PO SCH (09:00)
[2016-10-23] MEDS ORDERED: PANTOprazole SOD 40 MG TAB PO SCH (09:00)
[2016-10-23] MEDS: D5W AND 1/2NSS + 20MEQ KCL 1,000 ML IV SCH (09:30)
[2016-10-23 09:34] VITALS: BP 116/74; PULSE 65; TEMP 36.5; O2SAT 94
== END 2016-10-23 10:12 | disposition home or self-care (01) | DRG 483 ==
LOC: ENRESERVDT → ENRESERVTM → C.ACU 06:00 → C.3E 06:30
PROVIDERS: ADMIT Orthopaedic Surgery; ATTEND Orthopaedic Surgery
PROC: 0RRK00Z Replacement of Left Shoulder Joint with Reverse Ball and Socket Synthetic Substitute, Open Approach (ICD-10-PCS; principal; 2016-10-22 09:00)
DX: M19.012 Primary osteoarthritis, left shoulder (principal); M75.102 Unspecified rotator cuff tear or rupture of left shoulder, not specified as traumatic; I10 Essential (primary) hypertension; E78.5 Hyperlipidemia, unspecified; E66.9 Obesity, unspecified; K21.9 Gastro-esophageal reflux disease without esophagitis; F32.9 Major depressive disorder, single episode, unspecified; M54.5 Low back pain; Z85.820 Personal history of malignant melanoma of skin; Z96.653 Presence of artificial knee joint, bilateral

== ENCOUNTER 2016-12-27 17:57 | Emergency (ER) | payer OTHER ==
[~2016-12-27] VITALS: Ht 177.8 cm; Wt 120.7 kg
[~2016-12-27 17:57] MED LIST changes: +ACET-1256 PO; -ACETAMINOPHEN 500 MG TAB PO SCH; -CEFAZOLIN 3000 MG/65 ML D5W 65 ML IV SCH; -FAMOTIDINE 20 MG TAB PO SCH; -GABAPENTIN 300 MG CAP PO SCH; -LACTATED RINGER'S 1000ML 1,000 ML IV SCH; -LACTATED RINGER'S 1000ML IV SCH; -ROPIVACAINE 5MG/ML 30 ML 150 MG, BUPIVACAINE/EPINEPHR 0.5% MPF 30 ML, KETOROLAC TROMETH... INFIL SCH; +RXC5 PO
[2016-12-27 18:05] VITALS: Ht 177.8 cm; Wt 120.7 kg
[2016-12-27] MEDS ORDERED: OXYCODONE HCL IR 5 MG TAB (IMMEDIATE RELEASE) PO STA (18:28)
--- NOTE | 2016-12-27 19:11 | DIAGNOSTIC IMAGING REPORT ---
LUMBAR SPINE 5 VIEWS HISTORY: Trauma eval for fx COMPARISON: None. FINDINGS: There is no fracture. No subluxation. Disc spaces are preserved. IMPRESSION: No fracture or subluxation within the lumbar spine. Electronically signed by: Aaron Langley M.D. 12/27/2016 7:09 PM Dictated Date/Time: 12/27/2016 7:09 PM
--- NOTE | 2016-12-27 19:12 | DIAGNOSTIC IMAGING REPORT ---
THORACIC SPINE 3 VIEWS HISTORY: Trauma eval for fx COMPARISON: None. FINDINGS: There is no fracture. No subluxation. Moderate degenerative disc change throughout IMPRESSION: Degenerative change. No acute process. Electronically signed by: Aaron Lnagley M.D. 12/27/2016 7:11 PM Dictated Date/Time: 12/27/2016 7:10 PM
[2016-12-27] MEDS ORDERED: OXYC1TAB3 PO (19:38)
[2016-12-27 19:52] VITALS: BP 121/85; PULSE 84; TEMP 36.7; O2SAT 96
--- NOTE | 2016-12-28 01:44 | EMERGENCY ROOM VISIT NOTE ---
History Report prepared by Tato: Charline Pineda Under the Supervision of: Dr. Devonte De Souza M.D. First contact with patient: 18:09 Chief Complaint: BACK PAIN Stated Complaint: BACK PAIN History of Present Illness The patient is a 61 year old male who presents to the Emergency Room with complaints of worsening right lower back pain starting about a month ago. The pain initially started in his right lower back. His pain moved to the entire back from shoulder to the belt line about 3 days ago. He was not doing any exercises or any strenuous activities when his pain moved. He describes it as a sharp pain. He has worsening pain with movement. He has been taking Ibuprofen and muscle relaxers for the pain. He had one episode of pain radiation to the left leg. He has intermittent left leg tingling which he describes as pins and needles. He denies any numbness in lower extremities. He is able to ambulate as normal. He reports intermittent tingling in two fingers of the right hand but currently denies any tingling. He has not seen his PCP for his back pain. He did not have any recent falls or injuries. He has been working out at the gym 3 times a week using treadmill, bicycle, and sit ups with weights. He denies fevers, chest pain, shortness of breathing, nausea, vomiting, abdominal pain, urinary symptoms, bowel or urinary incontinence, weakness, or any other complaints. He has a history of hypertension and diabetes but is no longer on any prescribed medications for these. He states that even off of the medications as blood pressures have been normal. He denies any family history aortic dissection or aneurysm. Source of History: patient Onset: about a month ago Position: back (right lower) Symptom Intensity: moderate Quality: sharp Timing: worsening Modifying Factors (Worsening): movement Modifying Factors (Relieving): ibuprofen, other (muscle relaxers) Associated Symptoms: No SOB, No abdominal pain, No chest pain, No fevers, No nausea, No numbness, No urinary symptoms, No vomiting, No weakness Review of Systems See HPI for pertinent positives & negatives. A total of 10 systems reviewed and were otherwise negative. Past Medical & Surgical Medical Problems: (1) cuff arthropathy shoulder (2) GERD (gastroesophageal reflux disease) (3) Hyperlipidemia (4) Hypertension Surgical Problems: (1) History of arthroscopic knee surgery Family History Patient reports no known family medical history. Social History Smoking Status: Never Smoker Alcohol Use: occasionally Drug Use: none Marital Status: Occupation Status: employed Current/Historical Medications Scheduled Atorvastatin (Lipitor), 40 MG PO QAM Citalopram Hydrobromide (Citalopram Hydrobromide), 20 MG PO QAM Naproxen (Naprosyn), 500 MG PO QAM Omeprazole (Prilosec), 20 MG PO BID Scheduled PRN Acetaminophen (Tylenol), 2 TAB PO Q6 PRN for Pain or Fever Oxycodone HCl (Oxycodone HCl), 5-10 MG PO Q4H PRN for Pain Oxycodone Ir (Roxicodone Ir), 5 MG PO Q4H PRN for Pain Triamcinolone Acetonide (Topic (Triamcinolone Acet 0.025%), 1 APPLN TOP BID PRN for PRN Allergies Coded Allergies: Lisinopril (Verified Allergy, Intermediate, LIPS SWELL, 10/22/16) Physical Exam Vital Signs Date Time Temp Pulse Resp B/P Pulse Ox O2 Delivery O2 Flow Rate FiO2 12/27/16 19:52 36.7 84 18 121/85 96 12/27/16 18:05 36.7 84 18 121/85 96 Room Air Physical Exam Constitutional: Vital signs reviewed. Eyes: Pupils are equal round reactive to light. Conjunctiva are noninjected. ENT: Pharynx is clear without erythema or exudate. Mucous membranes are moist. Neck supple without meningeal signs. Respiratory: Clear to auscultation bilaterally. Breath sounds are equal bilaterally. Cardiovascular: Regular rate and rhythm. No rubs or gallops. GI: Soft, nondistended and nontender. Bowel sounds are present. No pulsatile masses. Musculoskeletal: No peripheral edema. No lower extremity tenderness. No midline tenderness to cervical, thoracic, lumbar, or sacral spine. Negative straight leg raise bilaterally. Integumentary: No cyanosis. Neurological: The patient is awake and alert. No focal deficits. Motor and sensation are intact in bilateral upper and lower extremities. Psychiatric: Normal affect. Medical Decision & Procedures ER Provider Diagnostic Interpretation: X-ray results as stated below per interpretation by me and the radiologist: LUMBAR SPINE 5 VIEWS HISTORY: Trauma eval for fx COMPARISON: None. FINDINGS: There is no fracture. No subluxation. Disc spaces are preserved. IMPRESSION: No fracture or subluxation within the lumbar spine. Electronically signed by: Aaron Langley M.D. 12/27/2016 7:09 PM Dictated Date/Time: 12/27/2016 7:09 PM THORACIC SPINE 3 VIEWS HISTORY: Trauma eval for fx COMPARISON: None. FINDINGS: There is no fracture. No subluxation. Moderate degenerative disc change throughout IMPRESSION: Degenerative change. No acute process. Electronically signed by: Aaron Langley M.D. 12/27/2016 7:11 PM Dictated Date/Time: 12/27/2016 7:10 PM Medications Administered Medications (Trade) Dose Ordered Sig/Salma Route Start Time Stop Time Status Last Admin Dose Admin Oxycodone HCl (Roxicodone Immediate Rel Tab) 5 mg NOW STAT PO 12/27/16 18:28 12/27/16 18:29 DC 12/27/16 18:37 5 MG Procedure Beside ultrasound of the abdomen-aorta from the celiac axis to bifurcation does not show any signs of aneurysm dilation. Partially limited due to bowel gas. ED Course 1808: The patient was evaluated in room A03. A complete history and physical exam was performed. 1827: Oxycodone HCl 5 mg PO 1931: Upon reevaluation, the patient is resting comfortable. I discussed tonight 's findings, activity restrictions, and return instructions with him. He verbalized agreement of the treatment plan. He was discharged home. Medical Decision This is a 61-year-old male who presents with back pain. Differential diagnosis includes strain, compression fracture, pathologic fracture, intervertebral disc disease, aortic aneurysm. I did perform a limited focused review of portions of the patient's old chart on the electronic medical record. The patient has had no recent pertinent visits to this hospital. I did evaluate the patient as noted above. He is presenting with back pain for the past month. Initially was in his lower back and now it is all over his back. It is worse with movement. He has had intermittent paresthesias with it but is neurologically intact on my examination and has no signs of spinal cord involvement or cauda equina syndrome. I did perform a limited bedside ultrasound of his aorta and saw no signs of abdominal aortic aneurysm. I did treat the patient with oxycodone. I did order and personally review the patient' s thoracic and lumbar spine x-rays as described above. He has a degenerative changes in the thoracic spine. I did discuss the test results with the patient. I did recommend he follow closely with his doctor for further care and referral to physical therapy. He was given return instructions. He was given a prescription for oxycodone for breakthrough pain she will use very sparingly. I did discuss addiction potential with him as well as other side effects of the medication. He was discharged in good condition. [place] Drug Monitoring Program Search Results: patient reviewed within database Drug Monitoring Findings: Patient received 5 days of oxycodone in October by Dr. Berman. Impression Primary Impression: Thoracic back pain Additional Impression: Lumbar back pain Scribe Attestation The scribe's documentation has been prepared under my direct and personally reviewed by me in its entirety. I confirm that the note above accurately reflects all work, treatment, procedures, and medical decision making performed by me. Departure Information Dispostion Home / Self-Care Prescriptions Oxycodone Ir (Roxicodone Ir) 5 Mg Tab 5 MG PO Q4H Y for Pain, #20 TAB Prov: Devonte De Souza M.D. 12/27/16 Referrals Megan Ambriz M.D. (PCP) Forms HOME CARE DOCUMENTATION FORM, IMPORTANT VISIT INFORMATION Patient Instructions ED Back Pain Acute Chronic, My [facility] Additional Instructions You have been examined and treated today on an emergency basis only. This is not a substitute for, or an effort to provide, complete comprehensive medical care. It is impossible to recognize and treat all injuries or illnesses in a single emergency department visit. It is therefore important that you follow up closely with your physician. Call as soon as possible for an appointment. Return for worsening symptoms or if you develop fever, vomiting, abdominal pain , loss of control of your bowel or bladder, numbness or weakness to your legs, numbness to your private area, difficulty urinating, or any other concerning symptoms. Problem Qualifiers Primary Impression: Thoracic back pain Chronicity: acute Back pain laterality: unspecified Qualified Codes: M54.6 - Pain in thoracic spine Additional Impression: Lumbar back pain Chronicity: acute Back pain laterality: unspecified Sciatica presence: unspecified whether sciatica present Qualified Codes: M54.5 - Low back pain
== END 2016-12-27 19:53 | disposition home or self-care (01) ==
LOC: C.EDB 17:57 → C.EDA 19:53
DX: M54.6 Pain in thoracic spine (principal); M54.5 Low back pain; K21.9 Gastro-esophageal reflux disease without esophagitis; I10 Essential (primary) hypertension; E78.5 Hyperlipidemia, unspecified

== ENCOUNTER → 2017-05-31 | Outpatient (CLI) | payer OTHER ==
[~2017-05-31] MED LIST changes: +OXYC1TAB3 PO
[2017-05-31 12:53] LABS: ALT/SGPT 37 U/L (12-78); AST/SGOT 25 U/L (15-37); BLOOD UREA NITROGEN 17 mg/dl (7-18); BUN/CREATININE RATIO 19.7 (10-20); CARBON DIOXIDE 27 mmol/L (21-32); CHLORIDE 108 mmol/L (98-107); CHOLESTEROL 176 mg/dl (0-200); CREATININE 0.86 mg/dl (0.60-1.40); GLUCOSE 111 mg/dl (70-99); POTASSIUM 4.1 mmol/L (3.5-5.1); SODIUM 141 mmol/L (136-145)
[2017-05-31 12:57] LABS: ALB/GLOB RATIO 0.9 (0.9-2); ALKALINE PHOSPHATASE 89 U/L (45-117); CHOLESTEROL/HDL RATIO 2.7; HDL CHOLESTEROL 66 mg/dl; LDL CHOLESTEROL CALCULATED 91 mg/dl; TRIGLYCERIDES 97 mg/dl (0-150); VERY LOW DENSITY LIPOPROT CALC 19 mg/dl
[2017-05-31 13:41] LABS: ESTIMATED AVERAGE GLUCOSE 131 mg/dl; HA1C FLAG Normal (Normal)
== END | disposition home or self-care (01) ==
LOC: C.LABPBG 07:38
PROVIDERS: ATTEND Family Medicine
DX: E78.5 Hyperlipidemia, unspecified (principal); E66.9 Obesity, unspecified; R80.9 Proteinuria, unspecified

== ENCOUNTER → 2017-06-20 | Outpatient (CLI) | payer OTHER ==
--- NOTE | 2017-06-20 11:16 | DIAGNOSTIC IMAGING REPORT ---
LEFT KNEE 2 VIEWS CLINICAL HISTORY: M25.562 left knee pain COMPARISON: None. DISCUSSION: No acute fractures are visualized. There are severe osteoarthritic changes present within the patellofemoral joint with near total cartilaginous loss. There are mild degenerative changes within the medial joint compartment. IMPRESSION: 1. Advanced osteoarthritic change within the patellofemoral joint. Mild degenerative change within the medial joint compartment. No acute fractures. Electronically signed by: Bandar Kaye M.D. 06/20/2017 11:14 AM Dictated Date/Time: 06/20/2017 11:13 AM
== END | disposition home or self-care (01) ==
LOC: C.RAD 10:40
PROVIDERS: ATTEND Family Medicine
DX: M25.562 Pain in left knee (principal)

== ENCOUNTER → 2017-12-09 | Outpatient (CLI) | payer OTHER ==
[~2017-12-09] MED LIST changes: -OXYC1TAB3 PO
[2017-12-09 13:38] LABS: BASO % 0.4 %; BASO ABS # 0.03 K/uL (0-0.2); EOS % 1.9 %; EOS ABS # 0.16 K/uL (0-0.5); HEMATOCRIT 44.2 % (42-52); HEMOGLOBIN 15.3 g/dL (14.0-18.0); IG# 0.01 K/uL (0.00-0.02); LYMPH % 29.6 %; MEAN CELL VOLUME 92.1 fL (80-100); MEAN CORPUSCULAR HEMOGLOBIN 31.9 pg (25-34); MEAN CORPUSCULAR HGB CONC 34.6 g/dl (32-36); MEAN PLATELET VOLUME 11.2 fL (7.4-10.4); MONO ABS # 0.76 K/uL (0.11-0.59); PLATELET COUNT 210 K/uL (130-400); RED CELL DISTRIBUTION WIDTH CV 13.8 % (11.5-14.5); RED CELL DISTRIBUTION WIDTH SD 46.5 fL (36.4-46.3); WHITE BLOOD COUNT 8.46 K/uL (4.8-10.8)
[2017-12-09 14:10] LABS: HEMOGLOBIN A1C 6.4 % (4.5-5.6)
[2017-12-09 14:38] LABS: BLOOD UREA NITROGEN 19 mg/dl (7-18); CALCIUM 9.3 mg/dl (8.5-10.1); CARBON DIOXIDE 24 mmol/L (21-32); CREATININE 0.93 mg/dl (0.60-1.40); GLUCOSE 101 mg/dl (70-99); POTASSIUM 4.4 mmol/L (3.5-5.1); SODIUM 142 mmol/L (136-145)
== END | disposition home or self-care (01) ==
LOC: C.LABPBG 09:24
PROVIDERS: ATTEND Family Medicine
DX: R51 Headache (principal); R73.03 Prediabetes

== ENCOUNTER 2019-08-05 08:54 | Inpatient (IN) ==
[2019-08-05] MEDS ORDERED: MECLIZINE HCL 25 MG TAB PO STA (09:20)
[2019-08-05 09:34] LABS: Basophils # (auto) 0.02 K/uL (0-0.2); Basophils % (auto) 0.2 %; Eosinophils % (auto) 2.1 %; Hematocrit (blood only) 45.6 % (42-52); Hemoglobin 15.4 g/dL (14.0-18.0); Immature Granulocytes # (auto) 0.02 K/uL (0.00-0.02); Immature Granulocytes % (auto) 0.2 %; Lymphocytes # (auto) 2.33 K/uL (1.2-3.4); Lymphocytes % (auto) 24.6 %; Mean Corpuscular Hemoglobin 31.6 pg (25-34); Mean Corpuscular Hgb Conc 33.8 g/dL (32-36); Mean Corpuscular Volume 93.6 fL (80-100); Mean Platelet Volume 9.1 fL (7.4-10.4); Monocytes # (auto) 0.76 K/uL (0.11-0.59); Neutrophils # (auto) 6.15 K/uL (1.4-6.5); Neutrophils % (auto) 64.9 %; Platelet Count 338 K/uL (130-400); RDW Coefficient of Variation 14.6 % (11.5-14.5); RDW Standard Deviation 49.9 fL (36.4-46.3); Red Blood Count 4.87 M/uL (4.7-6.1); White Blood Count 9.48 K/uL (4.8-10.8)
[2019-08-05 09:45] LABS: Partial Thromboplastin Time 26.8 Seconds (21.0-31.0); Prothrombin Time 10.5 Seconds (9.0-12.0)
[2019-08-05 09:49] LABS: Alanine Aminotransferase 30 U/L (12-78); Albumin Level 3.4 gm/dl (3.4-5.0); Aspartate Aminotransferase 18 U/L (15-37); BUN Creatinine Ratio 22.3 (10-20); Blood Urea Nitrogen 23 mg/dl (7-18); Calcium 9.4 mg/dl (8.5-10.1); Carbon Dioxide 25 mmol/L (21-32); Chloride 108 mmol/L (98-107); Creatinine Clr Calc Pharmacy 84.9 ml/min; Est GFR (African American) 85.3; Est GFR (Non-African American) 73.6; Glucose 137 mg/dl (70-99); Magnesium 1.7 mg/dl (1.8-2.4); Potassium 3.9 mmol/L (3.5-5.1); Sodium 140 mmol/L (136-145)
[2019-08-05 09:53] LABS: Albumin Globulin Ratio 0.8 (0.9-2); Alkaline Phosphatase 99 U/L (45-117); Bilirubin,Total 0.5 mg/dl (0.2-1); Globulin 4.5 gm/dl (2.5-4.0); Total Protein 7.9 gm/dl (6.4-8.2); Troponin I < 0.015 ng/ml (0-0.045)
--- NOTE | 2019-08-05 10:09 | XRay Report ---
XR chest 1V portable HISTORY: 64 years-old Male vertigo acute vertigo COMPARISON: Chest radiographs 04/05/2018 TECHNIQUE: Portable AP view of the chest FINDINGS: Cardiomediastinal and hilar silhouettes are unchanged. No pneumothorax, pleural effusion, focal airsp maikel consolidation or overt pulmonary edema. Bones of the chest appear grossly intact. Reverse shoulde r arthroplasties are noted bilaterally. IMPRESSION: No acute process. ACT 112: Negative or not required by law. The above report was generated using voice recognition software. It may contain grammatical, syntax o r spelling errors. Electronically signed by: Dany Jacobs M.D. 08/05/2019 10:08 AM
[2019-08-05] MEDS ORDERED: OPTIRAY 320 125ml IV PRN (10:49)
--- NOTE | 2019-08-05 11:18 | CT Scan Report ---
CT head/brain wo con CLINICAL HISTORY: 64 years-old Male with Stroke evaluation . Acute strokelike symptoms TECHNIQUE: Multiple axial CT images of the head were obtained without contrast. A dose lowering tech nique was utilized adhering to the principles of ALARA. COMPARISON: CTA head and neck of same day. FINDINGS: No acute intracranial hemorrhage, midline shift, intra-axial mass, hydrocephalus, territorial ischemi a or abnormal extra-axial collection. Mild age-related involutional changes. Cerebral vascular calcif ications are noted. CSF attenuating structure posterior to the third ventricle and inferomedial to th e left lateral ventricle measuring up to 3.0 x 1.0 cm may reflect an arachnoid cyst or asymmetric lef t lateral ventricle prominence. Cerebral vascular calcifications are noted. The calvarium is intact. Prior left-sided cataract repair. The paranasal sinuses, mastoid air cells, and middle ear cavities are clear. IMPRESSION: No acute intracranial abnormality. ACT 112: Negative or not required by law. The above report was generated using voice recognition software. It may contain grammatical, syntax o r spelling errors. Electronically signed by: Dany Jacobs M.D. 08/05/2019 11:17 AM
--- NOTE | 2019-08-05 11:37 | CT Scan Report ---
CT angio neck with con, CT angio head w con CLINICAL HISTORY: 64 years-old Male with vertigo. Acute vertigo with strokelike symptoms COMPARISON STUDY: CT head of same day TECHNIQUE: Following the IV administration of 120 mL of Optiray 320, CT angiogram of the head and nec k was performed from the aortic arch to the skull apex. Images are reviewed in the axial, sagittal, a nd coronal planes. 3-D MIPS images are created and assessed. IV contrast was administered without com plication. All measurements were calculated based on NASCET criteria. A dose lowering technique was utilized adhering to the principles of ALARA. CT DOSE: 1265.25 mGy.cm FINDINGS: Coronary arterial calcifications are partially imaged. The imaged opacified pulmonary arterial tree i s unremarkable. Unremarkable thoracic aortic arch. Patent bilateral common carotid arteries. Moderate mixed plaque of the bilateral carotid bulbs results in less than 50% luminal narrowing of the proxim al internal carotid arteries. Calcified plaque of the cavernous and supraclinoid segments also result s in no significant narrowing. The bilateral middle and anterior cerebral arteries appear patent. Dom inant left vertebral artery. Mild tortuosity of the proximal left A1 segment. Patent bilateral verteb ral arteries. The basilar and posterior cerebral arteries are unremarkable. origin of the left posterior cerebral artery. Cerebral venous sinuses appear patent. Lung apices are clear without pneumothorax. Soft tissues are unremarkable. Patent airway. Nonspecific mildly prominent level 1 and level 2 lymph nodes are present bilaterally. Mastoid air cells are beryl r. Small right sphenoid sinus air-fluid level suggests acute cystitis. Mild degenerative changes of t he cervical spine. IMPRESSION: 1. Unremarkable CTA of the head and neck without aneurysm, dissection, high-grade stenosis or proxima l branch occlusion. 2. Moderate mixed plaque of the bilateral carotid bulbs results in less than 50% luminal narrowing bi laterally. 3. Coronary arterial calcifications. ACT 112: Negative or not required by law. The above report was generated using voice recognition software. It may contain grammatical, syntax o r spelling errors. Electronically signed by: Dany Jacobs M.D. 08/05/2019 11:36 AM
--- NOTE | 2019-08-05 12:23 | Emergency Department Note ---
Entered by dArianna Mckenzie acting as a scribe for History of Present Illness General Chief complaint: Dizziness Stated complaint: DIZZINESS AND SOB,NAUSEA,BODYACHE, x4-5 DAYS Time Seen by Provider: 08/05/19 09:13 Source: patient History of Present Illness Onset (ago): day(s) 4 Location: head Pain Consistency: + intermittent Maximum Pain Intensity: 3 Quality: + other (dizziness) Associated symptoms: + denies other symptoms (ringing in ears, weakness in arms/legs) and + other (visual changes, nausea, loss of appetite, nasal congestion) The patient is a 64 year old male that is presenting to the Emergency Room with complaints of intermittent episodes of dizziness that started 4 days ago. The patient reports that he will feel like the world is spinning around him. He states that his vision becomes cloudy and he is unable to see. He notes that the episodes will last for a few seconds and then resolve. He reports that nothing w ill make his symptoms better or worse. He denies any ringing in his ears or unusual weakness in his arms or legs. He endorses some nausea. He states that he has been eating very little recently. He notes that he feels full after eating anything. He denies having been seen for these symptoms in the past. The patient reports that he had laryngitis and a sinus infection that started 2 weeks ago. He states that he is improving slowly. He notes that he has been using Vicks nasal spray which has been helping to relieve his nasal congestion and the fullness in his head. The patient notes that he has a history of diabetes and that he takes 15 units of Insulin at night. He denies any history of hy pertension or strokes. He denies having taken any of his medications today. Home Medications Home Medications Medication Instructions Recorded Confirmed Type turmeric root extract 500 mg PO QAM #0 12/26/17 08/05/19 History acetaminophen [Tylenol 8 Hour] 650 mg PO Q8H PRN 03/31/18 08/05/19 History diclofenac sodium 75 mg 75 mg PO BID #60 tab 06/26/19 08/05/19 Rx tablet,delayed release omeprazole 20 mg tablet,delayed 20 mg PO BID PRN tab 06/29/19 08/05/19 History release atorvastatin 40 mg tablet 40 mg PO HS #90 tab 07/09/19 08/05/19 Rx amlodipine 5 mg PO QAM 07/30/19 08/05/19 History hydrochlorothiazide 25 mg PO QAM 07/30/19 08/05/19 History insulin glargine [Lantus U-100 15 unit SUBCUT HS 07/30/19 08/05/19 History Insulin] tamsulosin 0.4 mg PO HS 07/30/19 08/05/19 History venlafaxine 150 mg PO QAM 07/30/19 08/05/19 History phenylephrine HCl [Sudafed PE] 10 mg PO Q6H PRN 08/05/19 08/05/19 History Allergies Allergy/AdvReac Type Severity Reaction Status Date / Time lisinopril Allergy Severe ANGIOEDEMA Verified 08/05/19 10:23 Past Med/Surg History Medical History Angioedema REACTION WITH LISINOPRIL Anxiety Arthritis Carpal tunnel syndrome Depression Diabetes type 2, controlled IDDM GERD (gastroesophageal reflux disease) Hyperlipidemia Hypertension Low back pain Mid back pain Migraines Neuropathy of both feet Nocturia Obesity Osteoarthritis Skin cancer Surgical History History of appendectomy History of cataract surgery History of eye surgery History of tonsillectomy Hx of arthroscopy of left knee Hx of arthroscopy of right knee Hx of colonoscopy MULTIPLE Hx of total shoulder replacement BL Family History Mother Ovarian cancer Breast cancer Aunt Breast cancer Father Diabetes Cardiac disorder Grandmother Metastatic neoplastic disease Other No family history of adverse response to anesthesia Social History Preferred Language: Afghan Communication Ability: Effective Visual Impairment: No Limitations Welfare Director Required: No Beliefs That Will Affect Care: None marital status: Current Living Situation: Spouse and Family Other Information That Helps Us Care for You: No Feels Safe at Home: Yes Safety Concerns: Feels Safe At This Time Smoking Status: Former smoker Cigarettes Per Day: QUIT 50 YEARS; <1 PPD X <1 YEAR ; Second Hand Exposure: No ; Hx Alcohol Use: No Hx Substance Use: No Review of Systems See HPI for pertinent positives & negatives. and A total of 10 systems reviewed and were otherwise negative Physical Exam Vital Signs Vital Signs - 24 hr 08/05/19 09:13 08/05/19 09:30 08/05/19 10:00 Pulse Rate 91 H 85 85 Pulse Rate [Apical] 87 86 83 Pulse Rate from SpO2 Sensor 91 H 86 85 Pulse Rhythm [Apical] Regular Regular Regular Pulse Strength [Apical] Normal Normal Normal Respiratory Rate 19 17 16 Respiratory Effort / Characteristics Non-Labored Non-Labored Non-Labored Respiratory Depth Normal Normal Normal Blood Pressure 122/90 112/89 120/88 Blood Pressure [Left Arm] 122/90 112/89 120/88 Blood Pressure Mean 97 100 94 Blood Pressure Mean [Left Arm] 100 96 98 Blood Pressure Position [Left Arm] Lying Lying Lying Pulse Oximetry 96 94 94 Oxygen Delivery Method Room Air Room Air Room Air 08/05/19 10:01 08/05/19 10:15 08/05/19 10:30 Pulse Rate 85 83 81 Pulse Rate [Apical] Pulse Rate from SpO2 Sensor 84 82 81 Pulse Rhythm [Apical] Pulse Strength [Apical] Respiratory Rate 15 16 17 Respiratory Effort / Characteristics Respiratory Depth Blood Pressure 113/85 Blood Pressure [Left Arm] Blood Pressure Mean 90 Blood Pressure Mean [Left Arm] Blood Pressure Position [Left Arm] Pulse Oximetry 94 94 94 Oxygen Delivery Method 08/05/19 10:31 08/05/19 10:32 08/05/19 10:58 Pulse Rate 84 107 H Pulse Rate [Apical] 77 Pulse Rate from SpO2 Sensor 83 76 Pulse Rhythm [Apical] Regular Pulse Strength [Apical] Normal Respiratory Rate 16 20 14 Respiratory Effort / Characteristics Non-Labored Respiratory Depth Normal Blood Pressure Blood Pressure [Left Arm] 113/85 Blood Pressure Mean Blood Pressure Mean [Left Arm] 94 Blood Pressure Position [Left Arm] Lying Pulse Oximetry 95 93 95 Oxygen Delivery Method Room Air 08/05/19 11:00 08/05/19 11:30 08/05/19 11:45 Pulse Rate 92 H 78 75 Pulse Rate [Apical] Pulse Rate from SpO2 Sensor 83 77 74 Pulse Rhythm [Apical] Pulse Strength [Apical] Respiratory Rate 20 16 14 Respiratory Effort / Characteristics Respiratory Depth Blood Pressure 103/79 131/73 Blood Pressure [Left Arm] Blood Pressure Mean 82 80 Blood Pressure Mean [Left Arm] Blood Pressure Position [Left Arm] Pulse Oximetry 96 95 94 Oxygen Delivery Method 08/05/19 12:00 08/05/19 12:01 08/05/19 12:15 Pulse Rate 78 78 79 Pulse Rate [Apical] Pulse Rate from SpO2 Sensor 79 79 78 Pulse Rhythm [Apical] Pulse Strength [Apical] Respiratory Rate 14 15 16 Respiratory Effort / Characteristics Respiratory Depth Blood Pressure 109/76 103/76 Blood Pressure [Left Arm] Blood Pressure Mean 78 89 Blood Pressure Mean [Left Arm] Blood Pressure Position [Left Arm] Pulse Oximetry 94 94 95 Oxygen Delivery Method 08/05/19 12:16 08/05/19 12:30 08/05/19 12:31 Pulse Rate 85 83 85 Pulse Rate [Apical] Pulse Rate from SpO2 Sensor 86 82 85 Pulse Rhythm [Apical] Pulse Strength [Apical] Respiratory Rate 28 H 19 18 Respiratory Effort / Characteristics Respiratory Depth Blood Pressure 100/78 Blood Pressure [Left Arm] Blood Pressure Mean 81 Blood Pressure Mean [Left Arm] Blood Pressure Position [Left Arm] Pulse Oximetry 97 95 97 Oxygen Delivery Method 08/05/19 12:32 08/05/19 12:45 08/05/19 12:46 Pulse Rate 86 78 79 Pulse Rate [Apical] Pulse Rate from SpO2 Sensor 86 73 74 Pulse Rhythm [Apical] Pulse Strength [Apical] Respiratory Rate 35 H 19 17 Respiratory Effort / Characteristics Respiratory Depth Blood Pressure 97/77 L 107/80 Blood Pressure [Left Arm] Blood Pressure Mean 80 85 Blood Pressure Mean [Left Arm] Blood Pressure Position [Left Arm] Pulse Oximetry 98 97 96 Oxygen Delivery Method 08/05/19 13:00 08/05/19 13:01 08/05/19 13:15 Pulse Rate 84 84 82 Pulse Rate [Apical] Pulse Rate from SpO2 Sensor 52 L 75 59 L Pulse Rhythm [Apical] Pulse Strength [Apical] Respiratory Rate 22 22 11 L Respiratory Effort / Characteristics Respiratory Depth Blood Pressure 107/79 105/75 Blood Pressure [Left Arm] Blood Pressure Mean 86 77 Blood Pressure Mean [Left Arm] Blood Pressure Position [Left Arm] Pulse Oximetry 94 96 94 Oxygen Delivery Method 08/05/19 13:16 Pulse Rate 83 Pulse Rate [Apical] Pulse Rate from SpO2 Sensor 74 Pulse Rhythm [Apical] Pulse Strength [Apical] Respiratory Rate 23 Respiratory Effort / Characteristics Respiratory Depth Blood Pressure Blood Pressure [Left Arm] Blood Pressure Mean Blood Pressure Mean [Left Arm] Blood Pressure Position [Left Arm] Pulse Oximetry 91 Oxygen Delivery Method GENERAL: Patient is awake, alert, and in no acute distress.Patient is resting comfortably and showing no signs of anxiety EYES: The conjunctivae are clear. The pupils are round and reactive. EARS, NOSE, MOUTH AND THROAT: The nose is without any evidence of any deformity. Mucous membranes are moist.Tongue is midline TMs are clear bilaterally. NECK: The neck is nontender and supple. RESPIRATORY: Normal respiratory effort is noted. There is no evidence of wheezing rhonchi or rales to auscultation. CARDIOVASCULAR: Regular rate and rhythm noted. There no murmurs rubs or gallops normal S1 normal S2 GASTROINTESTINAL: The abdomen is soft. Bowel sounds are present in all quadrants. Abdomen is nontender. MUSCULOSKELETAL/EXTREMITIES: There is no evidence of gross deformity. Full range of motion is noted in the hips and shoulders. SKIN: There is no obvious evidence of any rash. There are no petechiae, pallor or cyanosis noted. NEUROLOGIC: Patient is awake alert and oriented x3. Strength is symmetric. Patellar reflexes are 2+ bilaterally. Patient has nystagmus in both horizontal directions. Minimal nystagmus in vertical direction. Test of skew was positive in left eye. Course Course 0917:The patient was evaluated in room C03. A complete history and physical examination was performed. 1114: Patient went into SVT at this time. A second EKG was completed. 1149: Upon reevaluation, the patient is resting comfortably. I discussed laboratory and radiographic results with the patient. He verbalized agreement of the treatment plan. The patient will be evaluated for further management and care. 1151: I discussed the patients case with Dr. Varela, [facility], who will evaluate the patient for further management and care. 1411: The patient continues to go in and out of SVT. I was able to break him out of SVT several time with Valsalva. The hospitalist team is at bedside currently and will provided further management. Administered Medications Acetaminophen (Tylenol) 650 mg PO Q4H PRN PRN Reason: pain/fever Stop: 09/04/19 15:16 Last Admin: 08/06/19 03:34 Dose: 650 mg Documented by: [id number] Atorvastatin Calcium (Lipitor) 40 mg PO HS STEVAN Stop: 09/04/19 20:59 Last Admin: 08/05/19 20:30 Dose: 40 mg Documented by: [id number] Diclofenac Sodium (Voltaren) 75 mg PO BID STEVAN Stop: 09/04/19 20:59 Last Admin: 08/05/19 21:30 Dose: 75 mg Documented by: [id number] Enoxaparin Sodium (Lovenox) 40 mg SQ Q24H [facility] Stop: 09/04/19 17:59 Last Admin: 08/05/19 17:35 Dose: 40 mg Documented by: [id number] Sodium Chloride (Nss 1000ml) 1,000 mls @ 80 mls/hr IV .[id number] [facility] Stop: 09/04/19 15:16 Last Admin: 08/06/19 05:23 Dose: 80 mls/hr Documented by: [id number] Infusion: 08/06/19 05:23 Dose: 80 mls/hr Documented by: [id number] Admin: 08/05/19 17:26 Dose: 80 mls/hr Documented by: [id number] Amiodarone HCl/Dextrose (Nexterone / D5w) 360 mg in 200 mls @ 16.667 mls/hr IV .Q12H [facility] Stop: 09/04/19 21:30 Last Admin: 08/05/19 22:18 Dose: 0.5 mg/min, 16.7 mls/hr Documented by: [id number] Cosigned by: [id number] Insulin Aspart (Novolog Flexpen) 0 units SC ACHS [facility] Stop: 09/04/19 16:29 Last Admin: 08/05/19 20:30 Dose: Not Given Documented by: [id number] Cosigned by: [id number] Admin: 08/05/19 17:35 Dose: 3 units Documented by: [id number] Cosigned by: [id number] Insulin Glargine (Lantus Solostar Pen) 15 units SC [facility] Stop: 09/04/19 20:59 Last Admin: 08/05/19 20:29 Dose: 15 units Documented by: [id number] Cosigned by: [id number] Ioversol (Optiray 320 125ml) 120 ml IV ONCE PRN PRN Reason: Interaction Checking Stop: 08/09/19 10:48 Last Admin: 08/05/19 10:50 Dose: 120 ml Documented by: [id number] Tamsulosin HCl (Flomax) 0.4 mg PO HS [facility] Stop: 09/04/19 20:59 Last Admin: 08/05/19 20:29 Dose: 0.4 mg Documented by: [id number] Discontinued Medications Adenosine (Adenosine) Confirm Administered Dose 36 mg IV .STK-MED ONE Stop: 08/05/19 15:08 Last Admin: 08/05/19 15:08 Dose: 18 mg Documented by: [id number] Adenosine (Adenosine) 6 mg IV NOW STA Stop: 08/05/19 15:18 Last Admin: 08/05/19 16:28 Dose: Not Given Documented by: [id number] Adenosine (Adenosine) 12 mg IV NOW STA Stop: 08/05/19 15:18 Last Admin: 08/05/19 16:29 Dose: Not Given Documented by: [id number] Amiodarone HCl/Dextrose (Nexterone / D5w) 150 mg in 100 mls @ 600 mls/hr IV ONE STA Stop: 08/05/19 15:39 Last Infusion: 08/05/19 17:40 Dose: 0 mls/hr Documented by: [id number] Cosigned by: [id number] Admin: 08/05/19 17:26 Dose: 600 mls/hr Documented by: [id number] Cosigned by: [id number] Amiodarone HCl/Dextrose (Nexterone / D5w) 360 mg in 200 mls @ 33.333 mls/hr IV .Q6H [facility]EV[facility] Stop: 08/05/19 21:29 Last Infusion: 08/05/19 23:37 Dose: 0 mg/min, 0 mls/hr Documented by: [id number] Cosigned by: [id number] Admin: 08/05/19 17:36 Dose: 1 mg/min, 33.3 mls/hr Documented by: [id number] Cosigned by: [id number] Meclizine HCl (Antivert) 25 mg PO NOW STA Stop: 08/05/19 09:21 Last Admin: 08/05/19 09:36 Dose: 25 mg Documented by: [id number] Metoprolol Tartrate (Lopressor) Confirm Administered Dose 5 mg IV .STK-MED ONE Stop: 08/05/19 14:12 Last Increment: 08/05/19 14:23 Dose: 2.5 mg Documented by: [id number] Metoprolol Tartrate (Lopressor) 2.5 mg IV NOW STA Stop: 08/05/19 15:18 Last Admin: 08/05/19 16:29 Dose: Not Given Documented by: [id number] Medical Decision Making Differential Diagnosis Differential diagnosis: Etiologies such as benign positional vertigo, dehydration, hypovolemia, anemia, tumor, infection, hypoglycemia, electrolyte abnormalities, cardiac sources, intracerebral event, toxicologic, neurologic, as well as others were entertained. Medical Records Attestation: I reviewed the patient's medical records. Home Medications Current Medication List: was personally reviewed by me Laboratory Data Attestation: I reviewed the patient's lab results. Result diagrams: 08/06/19 05:33 08/06/19 05:33 Lab Results 08/05/19 08/05/19 08/05/19 Range/Units 09:18 09:18 09:18 WBC 9.48 (4.8-10.8) K/uL RBC 4.87 (4.7-6.1) M/uL Hgb 15.4 (14.0-18.0) g/dL Hct 45.6 (42-52) % MCV 93.6 (80-100) fL MCH 31.6 (25-34) pg MCHC 33.8 (32-36) g/dL RDW Std Deviation 49.9 H (36.4-46.3) fL RDW Coeff of Rudy 14.6 H (11.5-14.5) % Plt Count 338 (130-400) K/uL MPV 9.1 (7.4-10.4) fL Immature Gran % (Auto) 0.2 % Neut % (Auto) 64.9 % Lymph % (Auto) 24.6 % [place] % (Auto) 8.0 % Eos % (Auto) 2.1 % Baso % (Auto) 0.2 % Immature Gran # (Auto) 0.02 (0.00-0.02) K/uL Neut # (Auto) 6.15 (1.4-6.5) K/uL Lymph # (Auto) 2.33 (1.2-3.4) K/uL [place] # (Auto) 0.76 H (0.11-0.59) K/uL Eos # (Auto) 0.20 (0-0.5) K/uL Baso # (Auto) 0.02 (0-0.2) K/uL PT 10.5 (9.0-12.0) Seconds INR 1.0 (0.9-1.1) APTT 26.8 (21.0-31.0) Seconds PTT Ratio 1.0 Sodium 140 (136-145) mmol/L Potassium 3.9 (3.5-5.1) mmol/L Chloride 108 H (98-107) mmol/L Carbon Dioxide 25 (21-32) mmol/L Anion Gap 7.0 (3-11) BUN 23 H (7-18) mg/dl Creatinine 1.05 (0.6-1.4) mg/dl Est Cr Clr Drug Dosing 84.9 ml/min Est GFR ( Amer) 85.3 Est GFR (Non-Af Amer) 73.6 BUN/Creatinine Ratio 22.3 H (10-20) Glucose 137 H (70-99) mg/dl POC Glucose (70-99) Calcium 9.4 (8.5-10.1) mg/dl Magnesium 1.7 L (1.8-2.4) mg/dl Total Bilirubin 0.5 (0.2-1) mg/dl AST 18 (15-37) U/L ALT 30 (12-78) U/L Alkaline Phosphatase 99 (45-117) U/L Troponin I < 0.015 (0-0.045) ng/ml Total Protein 7.9 (6.4-8.2) gm/dl Albumin 3.4 (3.4-5.0) gm/dl Globulin 4.5 H (2.5-4.0) gm/dl Albumin/Globulin Ratio 0.8 L (0.9-2) Hepatitis C Ab Screen (Neg) 08/05/19 08/05/19 Range/Units 09:18 09:37 WBC (4.8-10.8) K/uL RBC (4.7-6.1) M/uL Hgb (14.0-18.0) g/dL Hct (42-52) % MCV (80-100) fL MCH (25-34) pg MCHC (32-36) g/dL RDW Std Deviation (36.4-46.3) fL RDW Coeff of Rudy (11.5-14.5) % Plt Count (130-400) K/uL MPV (7.4-10.4) fL Immature Gran % (Auto) % Neut % (Auto) % Lymph % (Auto) % [place] % (Auto) % Eos % (Auto) % Baso % (Auto) % Immature Gran # (Auto) (0.00-0.02) K/uL Neut # (Auto) (1.4-6.5) K/uL Lymph # (Auto) (1.2-3.4) K/uL [place] # (Auto) (0.11-0.59) K/uL Eos # (Auto) (0-0.5) K/uL Baso # (Auto) (0-0.2) K/uL PT (9.0-12.0) Seconds INR (0.9-1.1) APTT (21.0-31.0) Seconds PTT Ratio Sodium (136-145) mmol/L Potassium (3.5-5.1) mmol/L Chloride (98-107) mmol/L Carbon Dioxide (21-32) mmol/L Anion Gap (3-11) BUN (7-18) mg/dl Creatinine (0.6-1.4) mg/dl Est Cr Clr Drug Dosing ml/min Est GFR ( Amer) Est GFR (Non-Af Amer) BUN/Creatinine Ratio (10-20) Glucose (70-99) mg/dl POC Glucose 120 H (70-99) Calcium (8.5-10.1) mg/dl Magnesium (1.8-2.4) mg/dl Total Bilirubin (0.2-1) mg/dl AST (15-37) U/L ALT (12-78) U/L Alkaline Phosphatase (45-117) U/L Troponin I (0-0.045) ng/ml Total Protein (6.4-8.2) gm/dl Albumin (3.4-5.0) gm/dl Globulin (2.5-4.0) gm/dl Albumin/Globulin Ratio (0.9-2) Hepatitis C Ab Screen Neg (Neg) Imaging Data Radiologist's Impression: Radiology results as stated below per my review and the radiologist's interpretation: XR chest 1V portable HISTORY: 64 years-old Male vertigo acute vertigo COMPARISON: Chest radiographs 04/05/2018 TECHNIQUE: Portable AP view of the chest FINDINGS: Cardiomediastinal and hilar silhouettes are unchanged. No pneumothorax, pleural effusion, focal airspace consolidation or overt pulmonary edema. Bones of the chest appear grossly intact. Reverse shoulder arthroplasties are noted bilaterally. IMPRESSION: No acute process. ACT 112: Negative or not required by law. The above report was generated using voice recognition software. It may contain grammatical, syntax or spelling errors. Electronically signed by: Dany Jacobs M.D. 08/05/2019 10:[address] head/brain wo con CLINICAL HISTORY: 64 years-old Male with Stroke evaluation . Acute strokelike symptoms TECHNIQUE: Multiple axial CT images of the head were obtained without contrast. A dose lowering technique was utilized adhering to the principles of ALARA. COMPARISON: CTA head and neck of same day. FINDINGS: No acute intracranial hemorrhage, midline shift, intra-axial mass, hydrocephal us, territorial ischemia or abnormal extra-axial collection. Mild age-related involutional changes. Cerebral vascular calcifications are noted. CSF attenuating structure posterior to the third ventricle and inferomedial to the left lateral ventricle measuring up to 3.0 x 1.0 cm may reflect an arachnoid cyst or asymmetric left lateral ventricle prominence. Cerebral vascular calcifications are noted. The calvarium is intact. Prior left-sided cataract repair. The paranasal sinuses, mastoid air cells, and middle ear cavities are clear. IMPRESSION: No acute intracranial abnormality. ACT 112: Negative or not required by law. The above report was generated using voice recognition software. It may contain grammatical, syntax or spelling errors. Electronically signed by: Dany Jacobs M.D. 08/05/2019 11:[address] angio neck with con, CT angio head w con CLINICAL HISTORY: 64 years-old Male with vertigo. Acute vertigo with strokelike symptoms COMPARISON STUDY: CT head of same day TECHNIQUE: Following the IV administration of 120 mL of Optiray 320, CT angiogram of the head and neck was performed from the aortic arch to the skull apex. Images are reviewed in the axial, sagittal, and coronal planes. 3-D MIPS images are created and assessed. IV contrast was administered without complication. All measurements were calculated based on NASCET criteria. A dose lowering technique was utilized adhering to the principles of ALARA. CT DOSE: 1265.25 mGy.cm FINDINGS: Coronary arterial calcifications are partially imaged. The imaged opacified pulmonary arterial tree is unremarkable. Unremarkable thoracic aortic arch. Patent bilateral common carotid arteries. Moderate mixed plaque of the bilateral carotid bulbs results in less than 50% luminal narrowing of the proximal internal carotid arteries. Calcified plaque of the cavernous and supraclinoid segments also results in no significant narrowing. The bilateral middle and anterior cerebral arteries appear patent. Dominant left vertebral artery. Mild tortuosity of the proximal left A1 segment. Patent bilateral vertebral arteries. The basilar and posterior cerebral arteries are unremarkable. origin of the left posterior cerebral artery. Cerebral venous sinuses appear patent. Lung apices are clear without pneumothorax. Soft tissues are unremarkable. Patent airway. Nonspecific mildly prominent level 1 and level 2 lymph nodes are present bilaterally. Mastoid air cells are clear. Small right sphenoid sinus air-fluid level suggests acute cystitis. Mild degenerative changes of the cervical spine. IMPRESSION: 1. Unremarkable CTA of the head and neck without aneurysm, dissection, high- grade stenosis or proximal branch occlusion. 2. Moderate mixed plaque of the bilateral carotid bulbs results in less than 50% luminal narrowing bilaterally. 3. Coronary arterial calcifications. ACT 112: Negative or not required by law. The above report was generated using voice recognition software. It may contain grammatical, syntax or spelling errors. Electronically signed by: Dany Jacobs M.D. 08/05/2019 11:36 AM ECG Data Attestation: I personally reviewed and interpreted this ECG as follows: Indication: + other (vertigo) Rate (beats per minute): 89 Rhythm: + normal sinus ECG ST segments: no ST depression and no ST elevation ECG Findings: no PACs and no PVCs Comparison ECG Date: from (04/05/18) Change: no significant change Additional Comments: REPEAT EKG: Narrow complex tachycardia at a rate of 149bpm. No PVC. No acute ST segments. Changes are new compared to earlier EKG. Blood Pressure Blood Pressure Findings: Elevated blood pressure Blood Pressure Disposition: did not require urgent referral MDM Narrative The patient is a 64-year-old male who presented to the emergency department for an evaluation of vertigo. The patient had a recent URI and it is possible this could represent peripheral vertigo however the patient does have a history of diabetes as well as hypertension. He does have risk factors for central nervous system vertigo. He also had a positive test of skew with the left eye. He has significant vertigo and had some ataxia with trying to walk. I discussed patient's laboratory and radiographic studies with him. At this time there is no significant occlusion in the angios of the brain. CT the head showed no acute disease. He was feeling much better on subsequent reevaluation. The patient did have an episode of SVT which resolved spontaneously with Valsalva. It is possible this could represent a risk factor for an embolic phenomena leading to a central nervous system cause for his vertigo. Because of these risk factors I discussed this case with the on-call [facility] hospitalist group. They have agreed to evaluate the patient in the emergency department for further management and disposition. Impression & Plan Vertigo, Vertebral basilar insufficiency, Ataxia, SVT (supraventricular tachycardia) Discharge Plan Visit Data *Final* Discharge Date/Time: 08/05/19 14:55 Chief Complaint: Dizziness Stated Complaint: DIZZINESS AND SOB,NAUSEA,BODYACHE, x4-5 DAYS ED Provider: Bang Gates Discharge Problem: Vertigo, Vertebral basilar insufficiency, Ataxia, SVT (supraventricular tachycardia) Patient Disposition: Admitted As Inpatient Discharge Instructions Interventions: ED Discharge Assessment Last Done: 08/05/19 14:55 The scribe's documentation has been prepared under my direction and personally reviewed by me in its entirety. I confirm that the note above accurately reflects all work, treatment, procedures, and medical decision making performed by me.
--- NOTE | 2019-08-05 13:17 | History & Physical Report ---
Date of Service August 05, 2019 Assessment & Plan (1) Orthostasis: Patient symptoms sound like orthostasis than any primary neurological issue. I do note he is hypotensive today and he takes multiple antihypertensives. Will check orthostatics and hold medications. Will gently hydrate the patient. Consider further medications depending on results. Will check MRI/MRA to rule out vertebrobasilar insufficiency although this seems less likely. We will ask PT/OT to evaluate as well. (2) Hypertension, goal below 140/90: Will hold antihypertensives as noted. Patient's blood pressure rises, can consider restarting at low doses. (3) Hyperlipidemia: Patient is on atorvastatin 40 mg nightly which we will continue. Check fasting lipid panel. (4) Type 2 diabetes mellitus treated with insulin: Patient is on Lantus at home. We will continue this with a diabetic diet. Start sliding scale insulin. Check hemoglobin A1c. History of Present Illness Primary Care Provider: Fatoumata Anderson MD This is a 64-year-old male with past medical history of hypertension, type 2 diabetes mellitus, hyperlipidemia, and GERD the presents today complaining of vertigo. Patient is a somewhat limited historian and defers to his in the room to answer most questions. Patient and tell me that over the past week, the patient has been having as significant vertigo. They note this is mostly with position changes such as moving from a sitting to standing position. The vertigo is transient but severe, lasting only a few minutes and resolving completely. It seems to be consistent with these changes. Patient denies any chest pain now but he did note that approximately 2 weeks ago he had done some physical labor and had vague chest burning that was left/substernal. This was transient and did not recur since then. Patient denies any shortness of breath. He did note he had a recent URI approximately 2 weeks ago that resolved without any medical intervention. Of note, the patient tells me he is typically hypertensive but blood pressure was in the 90s on monitor during the evaluation. Patient denies any significant weight gain, shortness of breath, cough, palpitations, or further chest pain outside of what was defined above. During my evaluation, the patient was in no cardiopulmonary distress and appeared to be comfortable. Allergies Allergy/AdvReac Type Severity Reaction Status Date / Time lisinopril Allergy Severe ANGIOEDEMA Verified 08/05/19 10:23 Home Medications Home Medications Medication Instructions Recorded Confirmed Type turmeric root extract 500 mg PO QAM #0 12/26/17 08/05/19 History acetaminophen [Tylenol 8 Hour] 650 mg PO Q8H PRN 03/31/18 08/05/19 History diclofenac sodium 75 mg 75 mg PO BID #60 tab 06/26/19 08/05/19 Rx tablet,delayed release omeprazole 20 mg tablet,delayed 20 mg PO BID PRN tab 06/29/19 08/05/19 History release atorvastatin 40 mg tablet 40 mg PO HS #90 tab 07/09/19 08/05/19 Rx amlodipine 5 mg PO QAM 07/30/19 08/05/19 History hydrochlorothiazide 25 mg PO QAM 07/30/19 08/05/19 History insulin glargine [Lantus U-100 15 unit SUBCUT HS 07/30/19 08/05/19 History Insulin] tamsulosin 0.4 mg PO HS 07/30/19 08/05/19 History venlafaxine 150 mg PO QAM 07/30/19 08/05/19 History phenylephrine HCl [Sudafed PE] 10 mg PO Q6H PRN 08/05/19 08/05/19 History Past Med/Surg History Medical History Angioedema REACTION WITH LISINOPRIL Anxiety Arthritis Carpal tunnel syndrome Depression Diabetes type 2, controlled IDDM GERD (gastroesophageal reflux disease) Hyperlipidemia Hypertension Low back pain Mid back pain Migraines Neuropathy of both feet Nocturia Obesity Osteoarthritis Skin cancer Surgical History History of appendectomy History of cataract surgery History of eye surgery History of tonsillectomy Hx of arthroscopy of left knee Hx of arthroscopy of right knee Hx of colonoscopy MULTIPLE Hx of total shoulder replacement BL Family History Mother Ovarian cancer Breast cancer Aunt Breast cancer Father Diabetes Cardiac disorder Grandmother Metastatic neoplastic disease Other No family history of adverse response to anesthesia Social History Preferred Language: Divehi Communication Ability: Effective Visual Impairment: No Limitations 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 Beliefs That Will Affect Care: None marital status: Current Living Situation: Family Feels Safe at Home: Yes Smoking Status: Former smoker Cigarettes Per Day: QUIT 50 YEARS; <1 PPD X <1 YEAR ; Second Hand Exposure: No ; Hx Alcohol Use: Yes Hx Substance Use: No Review of Systems Constitutional: + weight loss; no fever, no chills and no weakness Eyes: as per Subjective / HPI Respiratory: no cough, no chest congestion, no dyspnea and no dyspnea on exertion Cardiovascular: + orthopnea; no chest pain, no palpitations, no lightheadedness and no edema Gastrointestinal: no abdominal pain, no nausea, no vomiting, no constipation and no diarrhea/loose stools Genitourinary: no dysuria, no difficulty urinating, no urinary frequency and no urinary hesitancy Musculoskeletal: no back pain, no neck pain, no joint pain, no stiffness and no myalgia Integumentary: no rash Neurologic: no gait abnormality, no unsteadiness, no falls and no generalized weakness Physical Exam Constitutional: cooperative; no acute distress Eyes: PERRL, conjunctivae normal, anicteric sclerae ENMT: external ear and nose normal, oropharynx normal Neck: trachea midline, no thyromegaly Respiratory: normal respiratory effort Auscultation: lungs clear to auscultation bilaterally; no crackles, no rales, no rhonchi and no wheezes Cardiovascular: Rate/Rhythm: regular rate and regular rhythm Heart Sounds: normal S1, normal S2 and + murmur Gastrointestinal (Abdomen): Inspection/Auscultation: abdomen normal to inspection Percussion/Palpation: abdomen soft; abdomen nontender, no guarding, abdomen not rigid and no hepatosplenomegaly Skin: no rashes, warm and dry Neurologic: patellar DTR's 2+ bilat, sensation intact and PERRL, EOMI, accommodation nl, no face palsy, no dysarthria Psychiatric: A+Ox3, euthymic affect Results & Data Vital Signs (Past 12 Hours) Vital Signs Temp Pulse Pulse Resp BP BP Pulse Ox 08/05/19 12:16 85 28 H 97 08/05/19 12:15 79 16 103/76 95 08/05/19 12:01 78 15 94 08/05/19 12:00 78 14 109/76 94 08/05/19 11:45 75 14 131/73 94 08/05/19 11:30 78 16 103/79 95 08/05/19 11:00 92 H 20 96 08/05/19 10:58 107 H 14 95 08/05/19 10:32 77 20 113/85 93 08/05/19 10:31 84 16 95 08/05/19 10:30 81 17 113/85 94 08/05/19 10:15 83 16 94 08/05/19 10:01 85 15 94 08/05/19 10:00 85 83 16 120/88 120/88 94 08/05/19 09:30 85 86 17 112/89 112/89 94 08/05/19 09:13 91 H 87 19 122/90 122/90 96 08/05/19 08:57 36.4 C L 99 H 20 121/83 96 Laboratory Results WBCs of 9.48 with a hemoglobin of 15.4. INR is 1. Chemistry shows a chloride of 108 BUN is 23 creatinine is 1.05 which is baseline. Glucose is 137. Magnesium is 1.7. Diagnostic Findings CT head/brain wo con CLINICAL HISTORY: 64 years-old Male with Stroke evaluation . Acute strokelike symptoms TECHNIQUE: Multiple axial CT images of the head were obtained without contrast. A dose lowering technique was utilized adhering to the principles of ALARA. COMPARISON: CTA head and neck of same day. FINDINGS: No acute intracranial hemorrhage, midline shift, intra-axial mass, hydrocephalus, territorial ischemia or abnormal extra-axial collection. Mild age-related involutional changes. Cerebral vascular calcifications are noted. CSF attenuating structure posterior to the third ventricle and inferomedial to the left lateral ventricle measuring up to 3.0 x 1.0 cm may reflect an arachnoid cyst or asymmetric left lateral ventricle prominence. Cerebral vascular calcifications are noted. The calvarium is intact. Prior left-sided cataract repair. The paranasal sinuses, mastoid air cells, and middle ear cavities are clear. IMPRESSION: No acute intracranial abnormality. --- XR chest 1V portable HISTORY: 64 years-old Male vertigo acute vertigo COMPARISON: Chest radiographs 04/05/2018 TECHNIQUE: Portable AP view of the chest FINDINGS: Cardiomediastinal and hilar silhouettes are unchanged. No pneumothorax, pleural effusion, focal airspace consolidation or overt pulmonary edema. Bones of the chest appear grossly intact. Reverse shoulder arthroplasties are noted bilaterally. IMPRESSION: No acute process. ---- CT angio neck with con, CT angio head w con CLINICAL HISTORY: 64 years-old Male with vertigo. Acute vertigo with strokelike symptoms COMPARISON STUDY: CT head of same day TECHNIQUE: Following the IV administration of 120 mL of Optiray 320, CT angiogram of the head and neck was performed from the aortic arch to the skull apex. Images are reviewed in the axial, sagittal, and coronal planes. 3-D MIPS images are created and assessed. IV contrast was administered without complication. All measurements were calculated based on NASCET criteria. A dose lowering technique was utilized adhering to the principles of ALARA. CT DOSE: 1265.25 mGy.cm FINDINGS: Coronary arterial calcifications are partially imaged. The imaged opacified pulmonary arterial tree is unremarkable. Unremarkable thoracic aortic arch. Patent bilateral common carotid arteries. Moderate mixed plaque of the bilateral carotid bulbs results in less than 50% luminal narrowing of the proximal internal carotid arteries. Calcified plaque of the cavernous and supraclinoid segments also results in no significant narrowing. The bilateral middle and anterior cerebral arteries appear patent. Dominant left vertebral artery. Mild tortuosity of the proximal left A1 segment. Patent bilateral vertebral arteries. The basilar and posterior cerebral arteries are unremarkable. origin of the left posterior cerebral artery. Cerebral venous sinuses appear patent. Lung apices are clear without pneumothorax. Soft tissues are unremarkable. Patent airway. Nonspecific mildly prominent level 1 and level 2 lymph nodes are present bilaterally. Mastoid air cells are clear. Small right sphenoid sinus air-fluid level suggests acute cystitis. Mild degenerative changes of the cervical spine. IMPRESSION: 1. Unremarkable CTA of the head and neck without aneurysm, dissection, high- grade stenosis or proximal branch occlusion. 2. Moderate mixed plaque of the bilateral carotid bulbs results in less than 50% luminal narrowing bilaterally. 3. Coronary arterial calcifications. --- PG Care Time/CCT Total # of Minutes Spent Total Time Spent with Patient: Total time spent is greater than 50% in coordination of care (as documented) at patient's floor/unit and/or counseling patient:
[2019-08-05] MEDS ORDERED: METOPROLOL TARTRATE 1 MG/ML VIAL IV ONE (14:11)
[2019-08-05] MEDS ORDERED: ADENOSINE IV SOLN 3 MG/ML 2 ML VIAL IV ONE (15:07)
[2019-08-05] MEDS ORDERED: DEXTROSE 50% 50 ML SYRINGE IV PRN (15:17)
[2019-08-05] MEDS ORDERED: GLUCOSE 10 TABS/TUBE PO PRN (15:17)
[2019-08-05] MEDS ORDERED: ZOLPIDEM TARTRATE 5 MG TAB PO PRN (15:17)
[2019-08-05] MEDS ORDERED: METOPROLOL TARTRATE 1 MG/ML VIAL IV STA (15:17)
[2019-08-05] MEDS ORDERED: CARBOHYDRATES FOR HYPOGLYCEMIA PO PRN (15:17)
[2019-08-05] MEDS ORDERED: GLUCAGON FOR INJ 1 MG VIAL SQ PRN (15:17)
[2019-08-05] MEDS ORDERED: NON-FORMULARY MEDICATION (Acetaminophen [Tylenol 8 Hour] 650 MG) PO PRN (15:17)
[2019-08-05] MEDS ORDERED: ADENOSINE IV SOLN 3 MG/ML 2 ML VIAL IV STA ×2 (15:17)
[2019-08-05] MEDS ORDERED: ONDANSETRON INJ 2 MG/ML 2 ML VIAL IV PRN (15:17)
[2019-08-05] MEDS ORDERED: ACETAMINOPHEN 325 MG TAB PO PRN (15:17)
[2019-08-05] MEDS ORDERED: GLUCOSE 40% GEL 15 GM TUBE PO PRN (15:17)
[2019-08-05] MEDS ORDERED: AMIODARONE / D5W 150 MG/100 ML BAG IV STA (15:30)
[2019-08-05] MEDS ORDERED: AMIODARONE IV BOLUS / DRIP IV STA (15:30)
[2019-08-05] MEDS ORDERED: AMIODARONE / D5W 360 MG/200 ML BAG IV SCH (15:30)
[2019-08-05] MEDS ORDERED: PANTOprazole 40 MG TAB PO PRN (16:17)
[2019-08-05] MEDS ORDERED: PHARMACY GLYCEMIC MGMT CONSULT PRN (16:24)
--- NOTE | 2019-08-05 17:18 | Magnetic Resonance Report ---
MR brain wo con HISTORY: 64 years-old Male vertigo acute vertigo COMPARISON: MRA head and neck of same day, CT head, CTA head neck of same day TECHNIQUE: Multiplanar multisequence MRI of the brain was obtained without the use of IV contrast FINDINGS: Hospital Superintendent localizer images demonstrate no gross extracranial abnormality. There is no restricted diffusio n to suggest acute or subacute infarction. The midline structures including the corpus callosum, brai nstem, optic chiasm, pituitary and pineal glands appear unremarkable on the sagittal T1 series. No ce rebellar tonsillar herniation. Degenerative changes are noted about the imaged cervical spine. No acute intracranial hemorrhage, midline shift, intra-axial mass or hydrocephalus. 3.0 x 0.9 x 2.1 c m ovoid structure which follows CSF signal on all sequences is noted posterior to the third ventricle inferomedial to the left lateral ventricle suggestive of a probable arachnoid cyst (image 14 of seri es 2, image 16 of series 6). This is likely positioned within the superior aspect of the quadrigemina l plate cistern There are no significant T2/FLAIR signal abnormalities of the brain parenchyma. Major flow voids at the level the skull base appear patent. Mastoid air cells are clear. Mild mucosal thic kening of the ethmoid air cells and maxillary sinuses. The skull, orbits and soft tissues are unremar kable. IMPRESSION: 1. No acute intracranial abnormality, specifically there is no evidence of acute or subacute infarcti on. 2. Probable arachnoid cyst within the distribution of the left superior aspect of the quadrigeminal p late cistern, 3.0 cm. ACT 112: Negative or not required by law. The above report was generated using voice recognition software. It may contain grammatical, syntax o r spelling errors. Electronically signed by: Dany Jacobs M.D. 08/05/2019 5:16 PM
--- NOTE | 2019-08-05 17:20 | Magnetic Resonance Report ---
MR angio head wo con HISTORY: 64 years-old Male vertigo acute shortness of breath with vertigo COMPARISON: Brain MRI of same day TECHNIQUE: MRI of the head was obtained without the use of IV contrast utilizing 3-D [id number] s equencing with MIP reformats. All measurements were obtained according to NASCET criteria. FINDINGS: The bilateral internal carotid arteries are patent and within normal limits. The bilateral middle and anterior cerebral arteries are patent and within normal limits. Dominant left vertebral artery. The vertebral arteries, basilar and posterior cerebral arteries appear patent. origin of the left p osterior cerebral artery. No aneurysm, dissection, high-grade stenosis or proximal branch occlusion. IMPRESSION: Unremarkable MRA of the head. ACT 112: Negative or not required by law. The above report was generated using voice recognition software. It may contain grammatical, syntax o r spelling errors. Electronically signed by: Dany Jacobs M.D. 08/05/2019 5:19 PM
[2019-08-05] MEDS: SODIUM CHLORIDE 0.9% 1000ML 1,000 ML IV SCH (17:26)
--- NOTE | 2019-08-05 17:31 | Magnetic Resonance Report ---
MR angio neck wo con HISTORY: 64 years-old Male vertigo acute vertigo COMPARISON: CTA of the neck of same day TECHNIQUE: MRA of the neck was obtained without the use of IV contrast utilizing 3-D [id number] s equencing with MIP reformats. All measurements were obtained according to NASCET criteria. FINDINGS: Patent bilateral common and internal carotid arteries. Patent bilateral vertebral arteries. No aneury sm, dissection, high-grade stenosis or proximal branch occlusion. Extra vascular structures appear grossly unremarkable. Nonspecific 8 mm left level 1 lymph node, poss ibly reactive. IMPRESSION: Unremarkable MRA of the neck. ACT 112: Negative or not required by law. The above report was generated using voice recognition software. It may contain grammatical, syntax o r spelling errors. Electronically signed by: Dany Jacobs M.D. 08/05/2019 5:30 PM
[2019-08-05] MEDS: INSULIN ASPART 100 UNITS/ML 3 ML PEN SC SCH ×2 (17:35→20:30)
[2019-08-05] MEDS ORDERED: ENOXAPARIN INJ 40 MG/0.4 ML SYR SQ SCH (18:00)
--- NOTE | 2019-08-05 20:31 | Pharmacy Report ---
Pharmacy Glycemic Short Note 2 - Date of Service August 05, 2019 - Glycemic Short BSG Results (Last 24 hours): 08/05/19 08/05/19 08/05/19 09:18 09:37 17:27 Glucose 137 H POC Glucose 120 H 110 H OUTPATIENT ANTIDIABETIC REGIMEN: * Lantus 15 units qHS * A1C pending with am labs; previous A1C 11/01/18 was 6.7 ASSESSMENT: * Pt blood sugars have been within range since admission. Will be conservative with bolus dosing relative to limited information available and BSGs within range. PLAN FOR INPATIENT GLYCEMIC CONTROL: * Hold outpatient oral diabetes medications * Basal insulin * Lantus 15 units SQ qHS (equivalent to home dose) * Bolus insulin * NovoLog per scale ACHS or Q6hrs while NPO * Goal Range: Low 110 mg/dL - High 140 mg/dL * Correction Factor: 35 mg/dL/unit * Nutritional / Prandial insulin per carb ratio of 1 unit per 12 grams CHO consumed
[2019-08-05] MEDS ORDERED: ATORVASTATIN 40 MG TAB PO SCH (21:00)
[2019-08-05] MEDS ORDERED: INSULIN GLARGINE SOLOSTAR 100 UNITS/ML 3 ML PEN SC SCH (21:00)
[2019-08-05] MEDS ORDERED: TAMSULOSIN HCL 0.4 MG CAP PO SCH (21:00)
[2019-08-05] MEDS: DICLOFENAC SODIUM 75 MG TABCR PO SCH (21:30)
[2019-08-05] MEDS: AMIODARONE / D5W 360 MG/200 ML BAG IV SCH (22:18)
[2019-08-06] MEDS: SODIUM CHLORIDE 0.9% 1000ML 1,000 ML IV SCH (05:23)
[2019-08-06] MEDS ORDERED: PNEUMOCOCCAL Polysaccharide Vaccine 25mcg/0.5mL vial/Syr IM ONE (05:30)
[2019-08-06 06:12] LABS: Basophils # (auto) 0.03 K/uL (0-0.2); Basophils % (auto) 0.3 %; Eosinophils # (auto) 0.23 K/uL (0-0.5); Eosinophils % (auto) 2.6 %; Hematocrit (blood only) 41.1 % (42-52); Hemoglobin 13.7 g/dL (14.0-18.0); Immature Granulocytes # (auto) 0.02 K/uL (0.00-0.02); Immature Granulocytes % (auto) 0.2 %; Lymphocytes # (auto) 2.38 K/uL (1.2-3.4); Lymphocytes % (auto) 27.2 %; Mean Corpuscular Hemoglobin 31.3 pg (25-34); Mean Corpuscular Hgb Conc 33.3 g/dL (32-36); Mean Corpuscular Volume 93.8 fL (80-100); Mean Platelet Volume 9.3 fL (7.4-10.4); Monocytes # (auto) 0.67 K/uL (0.11-0.59); Monocytes % (auto) 7.7 %; Neutrophils # (auto) 5.41 K/uL (1.4-6.5); Platelet Count 299 K/uL (130-400); RDW Coefficient of Variation 14.8 % (11.5-14.5); RDW Standard Deviation 50.4 fL (36.4-46.3); Red Blood Count 4.38 M/uL (4.7-6.1); White Blood Count 8.74 K/uL (4.8-10.8)
[2019-08-06 06:19] LABS: Estimated Average Glucose 148 mg/dl; Hemoglobin A1C 6.8 % (4.5-5.6)
[2019-08-06 06:42] LABS: BUN Creatinine Ratio 19.3 (10-20); Calcium 8.7 mg/dl (8.5-10.1); Creatinine Clr Calc Pharmacy 90.3 ml/min; Est GFR (African American) 92.7; Potassium 4.2 mmol/L (3.5-5.1)
[2019-08-06] MEDS ORDERED: VENLAFAXINE HCL XR 150 MG CAPXR PO SCH (09:00)
[2019-08-06] MEDS ORDERED: NON-FORMULARY MEDICATION (Turmeric Root Extract 500 MG) PO SCH (09:00)
[2019-08-06] MEDS: DICLOFENAC SODIUM 75 MG TABCR PO SCH (09:23)
[2019-08-06] MEDS: INSULIN ASPART 100 UNITS/ML 3 ML PEN SC SCH ×2 (09:29→13:36)
[2019-08-06] MEDS: AMIODARONE / D5W 360 MG/200 ML BAG IV SCH (09:45)
--- NOTE | 2019-08-06 10:54 | Hospitalist Progress Note ---
Date of Service August 06, 2019 Assessment & Plan (1) Orthostasis: Patient symptoms sound like orthostasis than any primary neurological issue. I do note he is hypotensive today and he takes multiple antihypertensives. Will check orthostatics and hold medications. Will gently hydrate the patient. Consider further medications depending on results. Will check MRI/MRA to rule out vertebrobasilar insufficiency although this seems less likely. We will ask PT/OT to evaluate as well. 08/06 -continue amiodarone drip as ordered for nonsustained SVT. Will order 2D echo for today. Cardiology still to see, consider conversion to oral medication with observation overnight. (2) Hypertension, goal below 140/90: Blood pressures remain low normal, continue to hold antihypertensive until seen by cardiology. (3) Hyperlipidemia: Patient is on atorvastatin 40 mg nightly which we will continue. Check fasting lipid panel. (4) Type 2 diabetes mellitus treated with insulin: Patient is on Lantus at home. We will continue this with a diabetic diet. Start sliding scale insulin. Hemoglobin A1c is 6.8. Subjective Patient was awake alert and oriented. He seems to be in good spirits. is at bedside. Patient is now on amiodarone drip. I did review the monitor patient appears to be in normal sinus rhythm with a good rate. He denies any chest pain, palpitations, lightheadedness, or other issues although he is mostly asymptomatic in the emergency room yesterday while having ongoing arrhythmias. Physical Exam Constitutional: cooperative; no acute distress Eyes: PERRL, conjunctivae normal, anicteric sclerae ENMT: external ear and nose normal, oropharynx normal Neck: trachea midline, no thyromegaly Respiratory: normal respiratory effort Auscultation: lungs clear to auscultation bilaterally; no crackles, no rales, no rhonchi and no wheezes Cardiovascular: Rate/Rhythm: regular rate and regular rhythm Heart Sounds: normal S1, normal S2 and + murmur Gastrointestinal (Abdomen): Inspection/Auscultation: abdomen normal to inspection Percussion/Palpation: abdomen soft; abdomen nontender, no guarding, abdomen not rigid and no hepatosplenomegaly Skin: no rashes, warm and dry Neurologic: patellar DTR's 2+ bilat, sensation intact and PERRL, EOMI, accommodation nl, no face palsy, no dysarthria Psychiatric: A+Ox3, euthymic affect Results & Data Vital Signs (Past 12 Hours) Vital Signs Temp Pulse Pulse Resp BP Pulse Ox 08/06/19 08:00 36.3 C L 66 18 109/76 97 08/06/19 03:49 36.4 C L 71 20 132/77 98 08/06/19 01:37 66 08/05/19 23:52 36.4 C L 72 20 111/74 94 PG Care Time/CCT Total # of Minutes Spent Total Time Spent with Patient: Total time spent is greater than 50% in coordination of care (as documented) at patient's floor/unit and/or counseling patient:
--- NOTE | 2019-08-06 12:39 | Cardiology Consultation ---
Date of Consultation August 06, 2019 Assessment & Plan (1) Orthostasis: I would agree that the patient's symptoms of dizziness are characteristic for orthostatic hypotension. The seem to occur exclusively with changes in position. There attenuated by a slower rise from a seated position. He seems to have had some improvement with hydration and discontinuation of antihypertensive meds. There is not appear to be a clear association between his arrhythmia and he symptoms of dizziness. (2) SVT (supraventricular tachycardia): The mechanism of his SVT is unclear. One EKG was suggestive of a reentrant mechanism, however he did not respond to 2 doses of adenosine or beta- blockade. Mistaken EKG suggests that some SVT is related to an ectopic atrial rhythm. All of his tachycardias may in fact be ectopic atrial rhythms. At this point would seem reasonable to continue the amiodarone into the outpatient setting. We can monitor him in the outpatient setting for recurrences and debate the need for alternate treatments. Amiodarone is not ideal in the long- term, he may be a good candidate for catheter based therapy at some point. If he is feeling well I think he could be discharged on amiodarone 400 milligrams twice daily for 10 days. At that point can be reduced to 200 milligrams daily. (3) Fatigue: Clearly multifactorial. One of the biggest contributors is likely his poor sleep hygiene. He is up quite frequently to urinate and check on his father who lives next door. History of Present Illness Reason for Consultation: Dizziness, supraventricular tachycardia Requesting Physician: Avery Attending Physician: Javi Varela, History of Present Illness Patient is a 64-year-old gentleman without a known history of cardiac disease presented to the hospital with symptoms of dizziness. Patient's was present for today's interview and supplied some supplemental information. It seems that for several weeks the patient has had dizziness. This is manifest primarily by a sense of presyncope when changing position. It seems to occur most commonly when getting up from a seated position or at nighttime when he gets out of bed to urinate. He has become accustomed to the symptoms and generally arises more slowly. This attenuates the symptoms. This symptom did not tend to occur with changes in head position exclusively. The did not tend to occur at rest. The patient is not suffered syncope. There is not appear to be any sense of palpitation associated with these episodes. Additionally, the patient reports dyspnea. Seems that he has been short of breath with exertion. Curiously, he exercises 5 times per week. His exercise does involve a aerobic activity such as using a stationary bike. He states that even last week he did not have significant dyspnea associated with that activity. However, other activity such as moving tables in his garage will produce dyspnea. He does not have orthopnea or paroxysmal nocturnal dyspnea. This afternoon the patient was able to ambulate around the woody 3 times. He did not report limiting dyspnea although had a very mild element of breathing difficulty. He did not report dizziness or lightheadedness. His symptoms appear to have improved since hospitalization. Allergies Allergy/AdvReac Type Severity Reaction Status Date / Time lisinopril Allergy Severe ANGIOEDEMA Verified 08/05/19 10:23 Home Medications Home Medications Medication Instructions Recorded Confirmed Type turmeric root extract 500 mg PO QAM #0 12/26/17 08/05/19 History acetaminophen [Tylenol 8 Hour] 650 mg PO Q8H PRN 03/31/18 08/05/19 History diclofenac sodium 75 mg 75 mg PO BID #60 tab 06/26/19 08/05/19 Rx tablet,delayed release omeprazole 20 mg tablet,delayed 20 mg PO BID PRN tab 06/29/19 08/05/19 History release atorvastatin 40 mg tablet 40 mg PO HS #90 tab 07/09/19 08/05/19 Rx amlodipine 5 mg PO QAM 07/30/19 08/05/19 History hydrochlorothiazide 25 mg PO QAM 07/30/19 08/05/19 History insulin glargine [Lantus U-100 15 unit SUBCUT HS 07/30/19 08/05/19 History Insulin] tamsulosin 0.4 mg PO HS 07/30/19 08/05/19 History venlafaxine 150 mg PO QAM 07/30/19 08/05/19 History phenylephrine HCl [Sudafed PE] 10 mg PO Q6H PRN 08/05/19 08/05/19 History Patient History Medical History Angioedema REACTION WITH LISINOPRIL Anxiety Arthritis Carpal tunnel syndrome Depression Diabetes type 2, controlled IDDM GERD (gastroesophageal reflux disease) Hyperlipidemia Hypertension Low back pain Mid back pain Migraines Neuropathy of both feet Nocturia Obesity Osteoarthritis Skin cancer Surgical History History of appendectomy History of cataract surgery History of eye surgery History of tonsillectomy Hx of arthroscopy of left knee Hx of arthroscopy of right knee Hx of colonoscopy MULTIPLE Hx of total shoulder replacement BL Family History Mother Ovarian cancer Breast cancer Aunt Breast cancer Father Diabetes Cardiac disorder Grandmother Metastatic neoplastic disease Other No family history of adverse response to anesthesia Social History Preferred Language: Hungarian Communication Ability: Effective Visual Impairment: No Limitations Bee Keeper Required: No Beliefs That Will Affect Care: None marital status: Current Living Situation: Spouse and Family Other Information That Helps Us Care for You: No Feels Safe at Home: Yes Safety Concerns: Feels Safe At This Time Smoking Status: Former smoker Cigarettes Per Day: QUIT 50 YEARS; <1 PPD X <1 YEAR ; Second Hand Exposure: No ; Hx Alcohol Use: No Hx Substance Use: No Review of Systems Review of Systems: All systems reviewed & are unremarkable except as noted in HPI & below Patient has lower extremity edema when he uses his left knee brace. Recently the edema has resolved. No chest pain associated with activity. No chest pain at rest. No sense of palpitation. Frequent urination at nighttime. Fatigue during the day. Physical Exam Physical Exam: The patient is alert and oriented. Mood and affect appeared normal. He answered all questions appropriately. HEENT: Pupils are equal and reactive to light and accommodation. Extraocular movements are intact. The sclerae are anicteric. Neuro: Cranial nerves intact Neck: Patient's neck is supple. He has palpable carotid pulses bilaterally without bruits on auscultation. There is no evidence of jugular venous distention. The thyroid is not enlarged. Lungs: Clear to auscultation bilaterally. He has good air movement without use of accessory muscles. No rales wheezes or rhonchi. Cardiac: Heart demonstrates a regular rate and rhythm. Normal S1 and S2. No murmurs on examination. Pulses: The patient has palpable radial pulses bilaterally that are equal in intensity Extremities: There was no evidence of hypoperfusion. There is no cyanosis or c lubbing. There is no edema. Skin: I did not appreciate any rashes on examination today. Multiple small hyper pigmented lesions on all extremities. Results & Data Vital Signs (Past 12 Hours) Vital Signs Temp Pulse Pulse Resp BP Pulse Ox 08/06/19 12:12 36.6 C 72 18 125/86 94 08/06/19 11:44 97 08/06/19 08:00 36.3 C L 59 L 66 18 109/76 97 08/06/19 03:49 36.4 C L 71 20 132/77 98 08/06/19 01:37 66 Laboratory Results Abnormal Lab Results 08/05/19 08/05/19 08/05/19 09:18 17:27 20:20 WBC RBC Hgb Hct MCV MCH MCHC RDW Std Deviation RDW Coeff of Rudy Plt Count MPV Immature Gran % (Auto) Neut % (Auto) Lymph % (Auto) Daggett % (Auto) Eos % (Auto) Baso % (Auto) Immature Gran # (Auto) Neut # (Auto) Lymph # (Auto) Daggett # (Auto) Eos # (Auto) Baso # (Auto) Sodium Potassium Chloride Carbon Dioxide Anion Gap BUN Creatinine Est Cr Clr Drug Dosing Est GFR ( Amer) Est GFR (Non-Af Amer) BUN/Creatinine Ratio Glucose POC Glucose 110 H 125 H Estimat Average Glucose Hemoglobin A1c Calcium Triglycerides Cholesterol LDL Cholesterol, Calc VLDL Cholesterol, Calc HDL Cholesterol Cholesterol/HDL Ratio Hepatitis C Ab Screen Neg 08/06/19 08/06/19 08/06/19 05:33 05:33 05:33 WBC 8.74 RBC 4.38 L Hgb 13.7 L Hct 41.1 L MCV 93.8 MCH 31.3 MCHC 33.3 RDW Std Deviation 50.4 H RDW Coeff of Rudy 14.8 H Plt Count 299 MPV 9.3 Immature Gran % (Auto) 0.2 Neut % (Auto) 62.0 Lymph % (Auto) 27.2 Daggett % (Auto) 7.7 Eos % (Auto) 2.6 Baso % (Auto) 0.3 Immature Gran # (Auto) 0.02 Neut # (Auto) 5.41 Lymph # (Auto) 2.38 Daggett # (Auto) 0.67 H Eos # (Auto) 0.23 Baso # (Auto) 0.03 Sodium 141 Potassium 4.2 Chloride 108 H Carbon Dioxide 27 Anion Gap 6.0 BUN 19 H Creatinine 0.98 Est Cr Clr Drug Dosing 90.3 Est GFR ( Amer) 92.7 Est GFR (Non-Af Amer) 80.0 BUN/Creatinine Ratio 19.3 Glucose 122 H POC Glucose Estimat Average Glucose 148 Hemoglobin A1c 6.8 H Calcium 8.7 Triglycerides 142 Cholesterol 153 LDL Cholesterol, Calc 88 VLDL Cholesterol, Calc 28 HDL Cholesterol 37 Cholesterol/HDL Ratio 4 Hepatitis C Ab Screen 08/06/19 08/06/19 07:25 11:29 WBC RBC Hgb Hct MCV MCH MCHC RDW Std Deviation RDW Coeff of Rudy Plt Count MPV Immature Gran % (Auto) Neut % (Auto) Lymph % (Auto) Daggett % (Auto) Eos % (Auto) Baso % (Auto) Immature Gran # (Auto) Neut # (Auto) Lymph # (Auto) Daggett # (Auto) Eos # (Auto) Baso # (Auto) Sodium Potassium Chloride Carbon Dioxide Anion Gap BUN Creatinine Est Cr Clr Drug Dosing Est GFR ( Amer) Est GFR (Non-Af Amer) BUN/Creatinine Ratio Glucose POC Glucose 124 H 100 H Estimat Average Glucose Hemoglobin A1c Calcium Triglycerides Cholesterol LDL Cholesterol, Calc VLDL Cholesterol, Calc HDL Cholesterol Cholesterol/HDL Ratio Hepatitis C Ab Screen Diagnostic Findings Chest x-ray obtained at time admission are reviewed acute cardiopulmonary process Multiple head imaging studies did not reveal any acute intracranial process or significant vascular occlusion. Echocardiogram performed today revealed preserved LV systolic function without significant valvular heart disease Dobutamine echocardiogram performed July 2018 without evidence of ischemia ECG Additional Comments: Serial EKGs were obtained. One demonstrated a very regular supraventricular tachycardia. Another demonstrated sinus rhythm alternating with brief runs of an atrial tachycardia. PG Care Time/CCT Total # of Minutes Spent Total Time Spent with Patient: Total time spent is greater than 50% in coordination of care (as documented) at patient's floor/unit and/or counseling patient:
--- NOTE | 2019-08-06 14:02 | Discharge Summary ---
Date of Service August 06, 2019 Admission HPI Per Admitting Provider This is a 64-year-old male with past medical history of hypertension, type 2 diabetes mellitus, hyperlipidemia, and GERD the presents today complaining of vertigo. Patient is a somewhat limited historian and defers to his in the room to answer most questions. Patient and tell me that over the past week, the patient has been having as significant vertigo. They note this is mostly with position changes such as moving from a sitting to standing position. The vertigo is transient but severe, lasting only a few minutes and resolving completely. It seems to be consistent with these changes. Patient denies any chest pain now but he did note that approximately 2 weeks ago he had done some physical labor and had vague chest burning that was left/substernal. This was transient and did not recur since then. Patient denies any shortness of breath. He did note he had a recent URI approximately 2 weeks ago that resolved without any medical intervention. Of note, the patient tells me he is typically hypertensive but blood pressure was in the 90s on monitor during the evaluation. Patient denies any significant weight gain, shortness of breath, cough, palpitations, or further chest pain outside of what was defined above. During my evaluation, the patient was in no cardiopulmonary distress and appeared to be comfortable. Admission Exam Per Admitting Provider Constitutional: cooperative; no acute distress Eyes: PERRL, conjunctivae normal, anicteric sclerae ENMT: external ear and nose normal, oropharynx normal Neck: trachea midline, no thyromegaly Respiratory: normal respiratory effort Auscultation: lungs clear to auscultation bilaterally; no crackles, no rales, no rhonchi and no wheezes Cardiovascular: Rate/Rhythm: regular rate and regular rhythm Heart Sounds: normal S1, normal S2 and + murmur Gastrointestinal (Abdomen): Inspection/Auscultation: abdomen normal to inspection Percussion/Palpation: abdomen soft; abdomen nontender, no guarding, abdomen not rigid and no hepatosplenomegaly Skin: no rashes, warm and dry Neurologic: patellar DTR's 2+ bilat, sensation intact and PERRL, EOMI, accommodation nl, no face palsy, no dysarthria Psychiatric: A+Ox3, euthymic affect Principal Diagnosis 1. Possible orthostatic hypertension 2. Nonsustained SVT 3. Insulin-dependent diabetes mellitus 4. Hypertension Discharge Exam Constitutional cooperative; no acute distress Eyes PERRL, conjunctivae normal, anicteric sclerae ENMT external ear and nose normal, oropharynx normal Neck trachea midline, no thyromegaly Respiratory normal respiratory effort Auscultation: lungs clear to auscultation bilaterally; no crackles, no rales, no rhonchi and no wheezes Cardiovascular Rate/Rhythm: regular rate and regular rhythm Heart Sounds: normal S1, normal S2 and + murmur Gastrointestinal (Abdomen) Inspection/Auscultation: abdomen normal to inspection Percussion/Palpation: abdomen soft; abdomen nontender, no guarding, abdomen not rigid and no hepatosplenomegaly Skin no rashes, warm and dry Neurologic patellar DTR's 2+ bilat, sensation intact and PERRL, EOMI, accommodation nl, no face palsy, no dysarthria Psychiatric A+Ox3, euthymic affect Discharge Data Allergies Allergy/AdvReac Type Severity Reaction Status Date / Time lisinopril Allergy Severe ANGIOEDEMA Verified 08/05/19 10:23 Consultations 08/05/19 11:55 ED Decision to Admit Stat 08/05/19 15:17 Consult Cardiology Stat Ordered Studies 08/05/19 09:20 CT head/brain wo con Stat 08/05/19 09:21 CT angio head w con Stat CT angio neck with con Stat 08/05/19 15:17 MR angio head wo con Stat MR angio neck wo con Stat MR brain wo con Stat Hospital Course (1) Orthostasis: Patient symptoms sound like orthostasis than any primary neurological issue. I do note he is hypotensive today and he takes multiple antihypertensives. Will check orthostatics and hold medications. Will gently hydrate the patient. Consider further medications depending on results. Will check MRI/MRA to rule out vertebrobasilar insufficiency although this seems less likely. We will ask PT/OT to evaluate as well. 08/06 -continue amiodarone drip as ordered for nonsustained SVT. MRI of the brain along with MRA of the brain and neck were unrevealing for any pathology. -I did speak to hand inserter operator after his evaluation. Patient was back in normal sinus rhythm. He recommended changing amiodarone to oral at 400 mg twice daily for the first 10 days and then 200 mg twice daily afterwards. Patient self felt well and remained in a normal rhythm without any symptoms of palpitations, d iaphoresis, chest pain, shortness of breath, or dyspnea on exertion. Therefore the patient will be discharged to follow-up with cardiology in their office. Amiodarone prescription was sent to pharmacy. (2) Hypertension, goal below 140/90: Blood pressures remain low normal, continue to hold antihypertensive until seen by cardiology. (3) Hyperlipidemia: Patient is on atorvastatin 40 mg nightly which we will continue. (4) Type 2 diabetes mellitus treated with insulin: Patient is on Lantus at home. We will continue this with a diabetic diet. Start sliding scale insulin. Hemoglobin A1c is 6.8. Total Time Total Time Spent Total Time Spent (In Minutes): Preparation of discharge took in excess of 30 minutes Discharge Plan Discharge Items Patient Disposition: Home - Self-Care Reason For Visit: VERTIGO Discharge Diagnosis: 1. Possible orthostatic hypertension 2. Nonsustained SVT 3. Insulin-dependent diabetes mellitus 4. Hypertension Activity: Per Instructions section Lifting: Gradually increase as tolerated Bathing: No limitations Sexual Activity: When tolerated Driving/Machine Use: No limitations Weightbearing: Full weightbearing Non-emergency contact: Primary Care Provider and Medical Billing And Coding Specialist Call non-emergency contact if: your symptoms worsen Follow-up/Referrals: Ney Cordova MD [Physician] - Fatoumata Anderson MD [Primary Care Provider] - Diet: Carb Consistent or DM2 Addtl Attending Provider Instructions: Change positions slowly as possible avoid significant vertigo Pending Studies at Discharge: No Stand-Alone Forms: My [facility] [place], Smoking Cessation Medications and DC Order Prescriptions: New amiodarone 200 mg tablet See Rx Instructions .ROUTE .COMPLEX 30 Days Qty: 70 RF: 0 Continued turmeric root extract 500 mg Capsule 500 mg PO QAM Qty: 0 RF: 0 diclofenac sodium 75 mg tablet,delayed release (DR/EC) 75 mg PO BID Qty: 60 RF: 5 atorvastatin 40 mg tablet 40 mg PO HS Qty: 90 RF: 1 omeprazole 20 mg tablet,delayed release (DR/EC) 20 mg PO BID PRN (Reason: REFLUX) RF: 0 acetaminophen [Tylenol 8 Hour] 650 mg Tablet Extended Release 650 mg PO Q8H PRN (Reason: Pain) RF: 0 Lantus U-100 Insulin 100 unit/mL Solution 15 unit SUBCUT HS RF: 0 venlafaxine 150 mg capsule,extended release 24hr 150 mg PO QAM RF: 0 amlodipine 5 mg tablet 5 mg PO QAM RF: 0 tamsulosin 0.4 mg capsule 0.4 mg PO HS RF: 0 hydrochlorothiazide 25 mg tablet 25 mg PO QAM RF: 0 Discontinued Sudafed PE 10 mg Tablet 10 mg PO Q6H PRN (Reason: Congestion) RF: 0 Discharge Orders: Discharge Order (Routine); Ordered 08/06/19 Ordered By: Javi Varela Admission Data Admit Date/Time: 08/05/19 13:21 Attending Provider: Javi Varela Admit Provider: Javi Varela Primary Care Provider: Fatoumata Anderson Other Providers: Javi Varela ; Ney Cordova
[2019-08-06] MEDS ORDERED: AMIODARONE 200 MG TAB PO ONE (14:48)
== END 2019-08-06 17:45 | disposition home or self-care (01) | DRG 312 ==
LOC: ED 08:54 → 2S 13:21

== ENCOUNTER 2019-09-14 07:34 | Observation (INO) ==
--- NOTE | 2019-08-10 16:18 | PAT Medication Instructions ---
Medication Instructions Date of Service August 10, 2019 Home Medications Medication Instructions Recorded diclofenac sodium 75 mg 75 mg PO BID #60 tab 06/26/19 tablet,delayed release atorvastatin 40 mg tablet 40 mg PO HS #90 tab 07/09/19 amiodarone See Rx Instructions .ROUTE 08/06/19 .COMPLEX 30 Days #70 tab turmeric root extract 500 mg PO QAM acetaminophen [Tylenol 8 Hour] 650 mg PO Q8H PRN diclofenac sodium 75 mg tablet,delayed release 75 mg PO BID omeprazole 20 mg tablet,delayed release 20 mg PO BID PRN atorvastatin 40 mg tablet 40 mg PO HS Lantus U-100 Insulin 15 unit SUBCUT HS amlodipine 5 mg PO QAM hydrochlorothiazide 25 mg PO QAM tamsulosin 0.4 mg PO HS venlafaxine 150 mg PO QAM amiodarone PO BID ASK your surgeon for instructions diclofenac sodium 75 mg tablet,delayed release 75 mg PO BID STOP taking 2 weeks before surgery turmeric root extract 500 mg PO QAM DO NOT take the morning of surgery hydrochlorothiazide 25 mg PO QAM Take morning of surgery With a small sip of water, OTHERWISE NOTHING TO EAT OR DRINK AFTER MIDNIGHT: acetaminophen [Tylenol 8 Hour] 650 mg PO Q8H PRN (if needed, may be taken up to four hours before surgery) omeprazole 20 mg tablet,delayed release 20 mg PO BID PRN (if needed) amlodipine 5 mg PO QAM venlafaxine 150 mg PO QAM amiodarone PO BID Take evening before surgery acetaminophen [Tylenol 8 Hour] 650 mg PO Q8H PRN (if needed) omeprazole 20 mg tablet,delayed release 20 mg PO BID PRN (if needed) atorvastatin 40 mg tablet 40 mg PO HS Lantus U-100 Insulin 15 unit SUBCUT HS tamsulosin 0.4 mg PO HS amiodarone PO BID Other Notes If you have any questions please call us at [phone] or [phone] or [phone] or [phone]
--- NOTE | 2019-08-13 11:26 | Anesthesiology Consultation ---
Date of Service August 13, 2019 Assessment & Plan (1) Encounter for pre-operative examination: CHECK BSG AM DOS Chart Review Chart Review: Acceptable Risk for Surgery (pending cardio clearance) and Patient seen in Pre Admission Testing Note to cardiology requesting clearance for surgery at 09/11 new patient/hospital f/u visit. Teaching & Discussion Instructed NPO after midnight before surgery, except medications with 15 cc of water. Medication instructions provided according to the PAT guidelines. History Surgery Operation Date: 09/14/19 07:00 Proposed Procedures p Left Total Knee Arthroplasty - Frandy Berman, Height/Weight Height: 5 ft 7 in Weight: 122.1 kg Allergies Allergy/AdvReac Type Severity Reaction Status Date / Time lisinopril Allergy Severe ANGIOEDEMA Verified 08/13/19 09:56 Medications Home Medications Medication Instructions Recorded Confirmed Last Taken turmeric root extract 500 mg PO QAM #0 12/26/17 08/05/19 08/04/19 acetaminophen [Tylenol 8 Hour] 650 mg PO Q8H PRN 03/31/18 08/05/19 04/13/18 18:00 diclofenac sodium 75 mg 75 mg PO BID #60 tab 06/26/19 08/05/19 08/04/19 tablet,delayed release omeprazole 20 mg tablet,delayed 20 mg PO BID PRN tab 06/29/19 08/05/19 Unknown release atorvastatin 40 mg tablet 40 mg PO HS #90 tab 07/09/19 08/05/19 08/04/19 Lantus U-100 Insulin 15 unit SUBCUT HS 07/30/19 08/05/19 08/04/19 amlodipine 5 mg PO QAM 07/30/19 08/05/19 08/04/19 hydrochlorothiazide 25 mg PO QAM 07/30/19 08/05/19 08/04/19 tamsulosin 0.4 mg PO HS 07/30/19 08/05/19 08/04/19 venlafaxine 150 mg PO QAM 07/30/19 08/05/19 08/04/19 amiodarone See Rx Instructions .ROUTE 08/06/19 08/13/19 08/13/19 .COMPLEX 30 Days #70 tab Past Medical History Medical History (Updated 08/14/19 @ 14:56 by Luis Coe) Anxiety Arthritis Carpal tunnel syndrome Depression Diabetes type 2, controlled IDDM GERD (gastroesophageal reflux disease) Hyperlipidemia Hypertension Low back pain Mid back pain Migraines Neuropathy of both feet Nocturia Obesity Osteoarthritis Skin cancer Melanoma, s/p excision SVT (supraventricular tachycardia) Admitted to [facility] 08/05 for dizziness/vertigo and found to be in SVT. Discharged on tapering amiodarone dose. Exercise / Class Metabolic Activity III < 4 Walking/Shop/Light housework (Denies CP or SOB with ambulation on one level, limited by knee pain) Past Surgical History Surgical History History of appendectomy History of cataract surgery History of eye surgery History of tonsillectomy Hx of arthroscopy of left knee Hx of arthroscopy of right knee Hx of colonoscopy MULTIPLE Hx of total shoulder replacement BL Past Anesthesia History No Hx of Anesthesia Complications and No Family Hx of Anesthesia Complications S/P R TSA 10/22/16 @ [facility] = MAC #3, ETT 7.5, grade view II. DVL x I. History of PONV No Hx of PONV and No Hx of Motion Sickness Social History Smoking Status: Never smoker Do You Dip or Chew Tobacco: No Hx Alcohol Use: Yes (very rare) alcohol intake frequency: holidays/special occasions only Hx Substance Use: No substance use type: does not use Review of Systems Pt denies any recent chest pain, shortness of breath, palpitations, cough, fever or URI. Physical Exam Vital Signs BP: 124/83 P: 75bpm SPO2: 95% RA T: 98.4 F R: 16 ENMT Mouth: + dental restorations (implant bottom front); no chipped teeth and no loose teeth Thyromental Distance: > or= 3.5 Finger Breadths (3.5) Mallampati Class: III Neck normal visual inspection; neck extension not limited Respiratory normal respiratory effort Auscultation: lungs clear to auscultation bilaterally Cardiovascular Rate/Rhythm: regular rate and regular rhythm Heart Sounds: no murmur Vessels: no carotid bruit Extremities: no edema Testing Laboratory Results Blood Type A Positive 08/13/19 11:35 Antibody Screen NEGATIVE 08/13/19 11:35 08/05/19 PT: 10.5 PTT: 26.8 INR: 1.0 08/06/19 WBC: 8.74 H/H: 13.7/41.1 PLATELETS: 141 SODIUM: 141 POTASSIUM: 4.2 CHLORIDE: 108 CO2: 27 BUN: 19 CREATININE: 0.98 GLUCOSE: 122 A1C: 6.8% Electrocardiogram Date: 08/13/19 Findings: + NSR @ (68) Chest X-Ray Date: 08/05/19 Findings: + NAD Echocardiogram Date: 08/06/19 EF: 50-55% LV systolic function is low normal. RV systolic pressure is normal. Mild aortic root dilatation. No significant valvular heart disease. LV wall motion is normal. Perhaps some very mild apical lateral and anterior hypokinesis. Stress Test Date: 07/18/18 Type: DSE Resting EF: 55-60% Negative dobutamine stress echo for ischemia at 92% MPHR. Appropriate blood pressure response. No arrhythmia. No chest pain reported. Technically difficult study, enhanced with IV Definity.
--- NOTE | 2019-08-13 15:37 | Electrocardiogram Report ---
Test Reason : Blood Pressure : / mmHG Vent. Rate : 068 BPM Atrial Rate : 068 BPM P-R Int : 186 ms QRS Dur : 112 ms QT Int : 446 ms P-R-T Axes : 047 000 052 degrees QTc Int : 474 ms Normal sinus rhythm Normal ECG When compared with ECG of 05-AUG-2019 13:58, Nonspecific T wave abnormality no longer evident in Inferior leads QT has lengthened Confirmed by Bang Grubbs ([id number]) on 08/13/2019 3:37:23 PM Referred By: Frandy Berman Confirmed By:Bang Grubbs
--- NOTE | 2019-09-14 06:42 | History & Physical Report ---
Date of Service September 14, 2019 Assessment & Plan (1) Osteoarthritis of left knee: We will proceed with a left total knee arthroplasty. Postoperatively he will be placed on aspirin for DVT prophylaxis and insulin for his diabetes. He will be kept overnight in the hospital for postoperative medical management. He plans to use [facility] in [place] upon discharge. Present on Admission?: Yes History of Present Illness Chief Complaint: Primary osteoarthritis of the left knee Primary Care Provider: Fatoumata Anderson MD Landon is a pleasant 64-year-old male who is been dealing with chronic increasing left knee pain. X-rays and clinical examination have been diagnostic for primary osteoarthritis of the left knee. He had a left knee arthroscopy done about 15 years ago at [facility]. Unfortunately he continues to have a lot of knee pain. After failing conservative treatment, he has elected to proceed with a left total knee arthroplasty. Allergies Allergy/AdvReac Type Severity Reaction Status Date / Time lisinopril Allergy Severe ANGIOEDEMA Verified 09/11/19 09:24 Home Medications Home Medications Medication Instructions Recorded Confirmed Type turmeric root extract 500 mg PO QAM #0 12/26/17 09/11/19 History acetaminophen [Tylenol 8 Hour] 650 mg PO Q8H PRN 03/31/18 09/11/19 History diclofenac sodium 75 mg 75 mg PO BID #60 tab 06/26/19 09/11/19 Rx tablet,delayed release omeprazole 20 mg tablet,delayed 20 mg PO BID PRN tab 06/29/19 09/11/19 History release atorvastatin 40 mg tablet 40 mg PO HS #90 tab 07/09/19 09/11/19 Rx Lantus U-100 Insulin 15 unit SUBCUT HS 07/30/19 09/11/19 History amlodipine 5 mg PO QAM 07/30/19 09/11/19 History hydrochlorothiazide 25 mg PO QAM 07/30/19 09/11/19 History tamsulosin 0.4 mg PO HS 07/30/19 09/11/19 History pen needle, diabetic 32 gauge x #100 ea 08/23/19 09/11/19 Rx 5/32" venlafaxine 150 mg 150 mg PO DAILY #30 cap 08/24/19 09/11/19 Rx capsule,extended release 24 hr amiodarone 400 mg tablet 400 mg PO DAILY #10 tab 09/11/19 09/11/19 Rx Past Med/Surg History Medical History Anxiety Arthritis Carpal tunnel syndrome Depression Diabetes type 2, controlled IDDM GERD (gastroesophageal reflux disease) Hyperlipidemia Hypertension Low back pain Mid back pain Migraines Neuropathy of both feet Nocturia Obesity Osteoarthritis Skin cancer Melanoma, s/p excision SVT (supraventricular tachycardia) Admitted to [facility] 08/05 for dizziness/vertigo and found to be in SVT. Discharged on tapering amiodarone dose. 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 Beliefs That Will Affect Care: None marital status: Current Living Situation: Spouse and Family Feels Safe at Home: Yes Smoking Status: Never smoker Second Hand Exposure: No ; Hx Alcohol Use: Yes (very rare) Hx Substance Use: No Review of Systems All systems reviewed & are unremarkable except as noted in HPI & below Physical Exam Constitutional: WD/WN, vitals as above Eyes: PERRL, conjunctivae normal, anicteric sclerae ENMT: external ear and nose normal, oropharynx normal Neck: trachea midline, no thyromegaly Respiratory: normal respiratory effort Cardiovascular: RRR, no murmur, no edema Gastrointestinal (Abdomen): normal bowel sounds, soft, nontender, no hepatosplenomegaly Musculoskeletal: On physical examination of the left knee there is a trace effusion. There is near full range of motion and no evidence of instability. There is significant tenderness palpation along the medial and lateral joint lines and over the distal femoral condyles. Psychiatric: A+Ox3, euthymic affect Results & Data Diagnostic Findings Radiographs of the left knee demonstrate advanced osteoarthritis with joint space narrowing osteophyte formation and [id number] articulation.
[~2019-09-14 07:34] MED LIST changes: -ACET-1256 PO; +ACETAMINOPHEN 500 MG TAB PO SCH; -ATOR-24 PO; +BUPIVACAINE 0.5 % 5 MG/1 ML PF 10ML VIAL ONE; +CEFAZOLIN 3000MG 72.5 ML IV SCH; -CITA20TA4 PO; +FAMOTIDINE 20 MG TAB PO SCH; +GABAPENTIN 300 MG CAP PO SCH; +LR 500ML BOLUS, THEN 15ML/HR IV SCH; +LR 60ML/HR IV SCH; -NAPR-1169 PO; -PRLSR20 PO; +ROPIVACAINE 0.5% 5 MG/ML 30 ML VIAL ONE; +ROPIVACAINE 0.5% HCL/PF 150 MG, BUPIVACAINE 0.5% MPF 30 ML, EPINEPHrine 30MG/30ML (OR U... INSTIL SCH; -RXC5 PO; +TRANEXAMIC ACID 1,000 MG **IV Intra-op IV SCH; +TRANEXAMIC ACID 1,000 MG **IV Pre-op IV SCH; -TRMO2580 TOP; +dexAMETHasone 4 MG TAB PO SCH
--- NOTE | 2019-09-14 08:27 | History & Physical Bridge Note ---
Date of Service September 14, 2019 History & Physical Bridge Note I have examined the patient, reviewed the History & Physical and in the interval since the performance of the History & Physical I have noted the following changes of clinical significance: no changes noted
[2019-09-14] MEDS ORDERED: PROPOFOL IV EMULSION 10 MG/ML 20 ML VIAL IV ONE ×2 (09:47→14:26)
[2019-09-14] MEDS ORDERED: KETAMINE HCL INJ 50 MG/ML 10 ML VIAL ONE (09:47)
[2019-09-14] MEDS ORDERED: ONDANSETRON INJ 2 MG/ML 2 ML VIAL ONE (09:47)
[2019-09-14] MEDS ORDERED: LIDOCAINE HCL 2% 2 ML VIAL/AMP(20MG/ML) INFIL ONE (09:47)
[2019-09-14] MEDS ORDERED: MIDAZOLAM HCL 1 MG/ML 2ML VIAL ONE (09:47)
[2019-09-14] MEDS ORDERED: GLYCOPYRROLATE 0.2 MG/ML VIAL ONE (09:47)
[2019-09-14] MEDS ORDERED: ATROPINE SULFATE 0.1 MG/ML 10ML SYR IV PRN (10:46)
[2019-09-14] MEDS ORDERED: ePHEDrine sulfate 50 MG/ML AMP IV PRN (10:46)
[2019-09-14] MEDS ORDERED: ONDANSETRON INJ 2 MG/ML 2 ML VIAL IV PRN ×2 (10:46→14:20)
[2019-09-14] MEDS ORDERED: HYDROmorphone INJ 1 MG/ML SYRINGE IV PRN (10:46)
[2019-09-14] MEDS ORDERED: ORTHO JOINT ANESTHETIC ONE (11:05)
[2019-09-14] MEDS ORDERED: KETOROLAC TROMETHAMINE 15 MG/ML VIAL IV PRN (11:55)
--- NOTE | 2019-09-14 12:52 | Operative Report ---
PG Post Operative Report Pre & Post Diagnosis Operation Date: 09/14/19 10:40 Pre-Op Diagnosis: LEFT KNEE DEGENERATIVE JOINT DISEASE Post-Op Diagnosis: LEFT KNEE DEGENERATIVE JOINT DISEASE I identified the patient and participated in the time-out.: Yes Procedure Operation Date: 09/14/19 10:40 Actual Procedures p Left Total Knee Arthroplasty(Left) - Frandy Berman DO Surgeon Frandy Berman DO [employer] Frandy Barry PAC Estimated Blood Loss 50 Findings Consistent with Post-Op Diagnosis Specimens Left femoral and tibial bone Complications none Disposition Disposition: Recovery Room Indications Landon is a 64-year-old male who presented my office with chronic increasing left knee pain. X-rays and clinical examination were diagnostic for primary osteoarthritis of the left knee. After failing conservative treatment, he elected to proceed with a left total knee arthroplasty. Description of Procedure Implants used: I used a [employer] Vanguard total knee arthroplasty system with a size 72.5 femur, 75 tibia, 34 patella, and a size 10 PS plus polyethylene bearing. All components were cemented in place with Palacos G cement. Landon arrived [facility] for the above procedure. He was seen in the preoperative holding area and the operative extremity was identified and signed. He was given a preoperative antibiotic, TXA, a spinal anesthetic and an adductor nerve block. He was taken back to the operating room and laid on the table in supine position. He was given basic sedation. The operative knee was then prepped and draped in sterile fashion. A timeout was done, and the patient and the operative extremity was properly identified. A midline incision was made directly over the patella. Dissection was taken down to the extensor mechanism. A subvastus arthrotomy was used. The medial retinaculum was released and the fat pad was mostly excised. The knee was flexed and the ACL, PCL, and meniscus were removed. A drill was sent down the center of the femoral canal followed by an intramedullary narendra. Off that narendra a distal femoral cutting block was placed. 9 mm was resected off the distal femur at 5 of valgus. A posterior referencing AP sizing guide was then placed on the distal femur. The femur measured to be a size 72.5. 2 drill holes were placed in 3 of external rotation. A 4-in-1 cutting block was then impacted into place. Anterior, posterior, and chamfer cuts were then made. The posterior stabilizing box guide was then impacted into place and the box was resected for the posterior stabilizing component. The proximal tibia was then exposed. A drill was sent down the center of the tibial canal followed by an intramedullary narendra. Off that narendra a proximal tibial resection guide was placed. The proximal tibia was then resected. The tibia measured to be a size 75. The tibial plate was then placed in the appropriate rotation and the tibia was punched. The posterior aspect of the knee was then opened up and any additional meniscus fragments and osteophytes were removed. Trial components were then placed. I used a size 10 PS plus polyethylene insert. The knee was brought through a full range of motion and felt to be stable. The patella was then everted and 8 mm was resected off the posterior aspect of the patella. The patella measured to be a size 34. 3 peg holes were then drilled. A trial patella was placed. The knee was once again brought through a full range of motion and felt to be stable. Trial components were then removed. The surrounding soft tissues were injected with 100 cc of an orthopedic pain control cocktail. All components were then cemented into place with Palacos G cement. The final polyethylene insert was then snapped into place and the anterior bar was locked. Once cement was dry the tourniquet was deflated. Hemostasis was obtained. A dilute betadyne lavage was then done for 3 minutes. The joint was then irrigated with normal saline solution. The subvastus arthrotomy was then closed with #1 Vicryl suture. The skin was closed with 2-0 Vicryl, 3-0V lock suture, and nhung. A soft compressive dressing was placed. He was then transferred to a hospital bed and taken to the postanesthesia care unit in stable condition. He tolerated the procedure well. I attest to the content of the Intraoperative Record and any orders documented therein. Any exceptions are noted below.
--- NOTE | 2019-09-14 13:30 | XRay Report ---
XR knee LT 1 or 2V routine HISTORY: 64 years-old Male Surgical Post Op left knee total joint arthroplasty. History of degenerat aleena joint disease COMPARISON: Left knee radiographs 06/20/2017 TECHNIQUE: 2 views of the left knee FINDINGS: Left knee total joint arthroplasty and patella resurfacing. Anterior midline skin nhung are noted a long with expected postsurgical soft tissue swelling and deep tissue air. No acute fracture, dislocat ion or retained foreign body. Surgical drainage catheter noted. IMPRESSION: Left knee total joint arthroplasty with expected postoperative findings. ACT 112: Negative or not required by law. The above report was generated using voice recognition software. It may contain grammatical, syntax o r spelling errors. Electronically signed by: Dany Jacobs M.D. 09/14/2019 1:28 PM
--- NOTE | 2019-09-14 13:37 | Anesthesiology Progress Note ---
Date of Service September 14, 2019 Anesthesia Post Procedure Vital Signs Vital Signs: Temp Pulse Resp BP Pulse Ox 09/14/19 13:25 37.1 C 82 18 110/76 92 09/14/19 13:15 86 16 112/82 93 09/14/19 13:07 37.0 C 88 16 105/76 96 09/14/19 08:55 36.7 C 77 18 136/98 93 Pain Intensity Left Knee: Pain Intensity: 2 Transfer of Care Handoff Completed per policy Notes Mental Status: alert / awake / arousable Patient Amnestic to Procedure: Yes Nausea / Vomiting: adequately controlled Pain: adequately controlled Airway Patency, RR, SpO2: stable & adequate BP & HR: stable & adequate Hydration State: stable & adequate Neuraxial Anesthesia: was administered and sensory block is resolving Anesthetic Complications: no major complications apparent
[2019-09-14] MEDS ORDERED: OXYCODONE HCL IR 5 MG TAB (IMMEDIATE RELEASE) PO PRN (14:20)
[2019-09-14] MEDS ORDERED: bisacodyL 10 MG SUPP PR PRN (14:20)
[2019-09-14] MEDS ORDERED: NALOXONE HCL 0.4 MG/1 ML VIAL/CARP IV PRN (14:20)
[2019-09-14] MEDS ORDERED: METOCLOPRAMIDE HCL INJ 5 MG/ML 2 ML VIAL IV PRN (14:20)
[2019-09-14] MEDS ORDERED: HYDROmorphone INJ 0.5 MG/0.5 ML SYR IV PRN (14:20)
[2019-09-14] MEDS ORDERED: MAGNESIUM HYDROXIDE SUSP 30 ML UDC PO PRN (14:20)
[2019-09-14] MEDS ORDERED: SODIUM CHLORIDE 0.9% 1000ML 1,000 ML IV SCH (14:20)
[2019-09-14] MEDS ORDERED: PANTOprazole 40 MG TAB PO PRN (14:29)
[2019-09-14] MEDS ORDERED: PHARMACY GLYCEMIC MGMT CONSULT SCH (14:50)
[2019-09-14] MEDS ORDERED: CARBOHYDRATES FOR HYPOGLYCEMIA PO PRN (15:15)
[2019-09-14] MEDS ORDERED: DEXTROSE 50% 50 ML SYRINGE IV PRN (15:15)
[2019-09-14] MEDS ORDERED: GLUCOSE 10 TABS/TUBE PO PRN (15:15)
[2019-09-14] MEDS ORDERED: GLUCAGON FOR INJ 1 MG VIAL IM PRN (15:15)
[2019-09-14] MEDS ORDERED: GLUCOSE 40% GEL 15 GM TUBE PO PRN (15:15)
--- NOTE | 2019-09-14 15:17 | Pharmacy Report ---
Glycemic Control Consultation - Date of Service September 14, 2019 - Scope Scope: Glycemic Pharmacist consulted by Frandy Barry PA-C on 09/14/19 for glycemic control and to write orders per [facility] inpatient glycemic control protocol - Objective Weight: 114.396 kg Accuchecks BSG (last 24hrs): 09/14/19 09/14/19 08:21 13:12 POC Glucose 125 H 132 H - Recent Pertinent Medications Outpatient Anti-diabetic Regimen: * Insulin Glargine 15 units SQ HS * A1c = 6.8 % 08/06/19 Risk Factors for Insulin Resistance: * Steroids: Dexamethasone 8mg PO Preop * Recent Surgery: S/p Left TKA * Diet: Type 2 DM - Assessment & Plan Assessment & Plan: ASSESSMENT: * 64 year old male, s/p Left TKA, type 2 diabetic managed on 15 units of basal insulin daily at home, good A1c. * Will give one time dose of NPH to cover dexamethasone effects and start basal bolus insulin therapy Will loosen CF/CR parameters as steroids wear off. * ADA & AACE recommend a goal blood sugar range 140-180 mg/dl for the majority of critically ill & non-critically ill patients. However, more stringent targets may be selected in individual cases. Will utilize more stringent goal of 110-140mg/dl based on patient age & comorbidities. Additionally, tighter glycemic control is warranted to facilitate wound/infection healing. PLAN FOR INPATIENT GLYCEMIC CONTROL: * Basal insulin * Lantus 15 units SQ HS (hold for BSG < 100mg/dl) * NPH 30 units SQ x 1 dose now at 1530 * Bolus insulin * NovoLog per scale ACHS or Q6hrs while NPO * Goal Range: Low 110 mg/dL - High 140 mg/dL * Correction Factor: 20 mg/dL/unit * Nutritional / Prandial insulin per carb ratio of 1 unit per 7 grams CHO consumed * Please note that the plan above was derived based on current level of insulin resistance and hospital stress. These recommendations are appropriate for inpatient admission only. Plan of care upon discharge will need to be reassessed to avoid potential outpatient hypo/hyperglycemia. Thank you.
[2019-09-14] MEDS ORDERED: NovoLIN-N (NPH) PER UNIT CHARGE SQ ONE (15:30)
[2019-09-14] MEDS: KETOROLAC TROMETHAMINE 15 MG/ML VIAL IV SCH ×2 (16:25→20:42)
[2019-09-14] MEDS: CEFAZOLIN 2000MG 2,000 MG/15 ML SYR IV SCH (18:10)
[2019-09-14] MEDS: ACETAMINOPHEN 500 MG TAB PO SCH (18:10)
[2019-09-14] MEDS: INSULIN ASPART 100 UNITS/ML 3 ML PEN SC SCH ×2 (18:17→21:34)
[2019-09-14] MEDS: ASPIRIN 81 MG ECTAB PO SCH (20:42)
[2019-09-14] MEDS: DOCUSATE SODIUM 100 MG CAP PO SCH (20:42)
[2019-09-14] MEDS ORDERED: ATORVASTATIN 40 MG TAB PO SCH (21:00)
[2019-09-14] MEDS ORDERED: INSULIN GLARGINE SOLOSTAR 100 UNITS/ML 3 ML PEN SC SCH (21:00)
[2019-09-14] MEDS ORDERED: SENNA 8.6 MG TAB PO SCH (21:00)
[2019-09-14] MEDS ORDERED: TAMSULOSIN HCL 0.4 MG CAP PO SCH (21:00)
[2019-09-15] MEDS: CEFAZOLIN 2000MG 2,000 MG/15 ML SYR IV SCH (03:59)
[2019-09-15] MEDS: KETOROLAC TROMETHAMINE 15 MG/ML VIAL IV SCH ×2 (03:59→09:01)
[2019-09-15] MEDS ORDERED: COUGH DROP (SUGAR FREE) LOZ 24 LOZ/1 BOX BUCCAL ONE (04:03)
[2019-09-15] MEDS: ACETAMINOPHEN 500 MG TAB PO SCH (05:42)
[2019-09-15 07:06] LABS: Hematocrit (blood only) 33.2 % (42-52); Hemoglobin 11.3 g/dL (14.0-18.0); Mean Corpuscular Hemoglobin 31.3 pg (25-34); Mean Platelet Volume 8.9 fL (7.4-10.4); Platelet Count 279 K/uL (130-400); RDW Coefficient of Variation 14.4 % (11.5-14.5); RDW Standard Deviation 48.8 fL (36.4-46.3); Red Blood Count 3.61 M/uL (4.7-6.1); White Blood Count 14.35 K/uL (4.8-10.8)
[2019-09-15 07:36] LABS: BUN Creatinine Ratio 19.7 (10-20); Calcium 8.8 mg/dl (8.5-10.1); Creatinine Clr Calc Pharmacy 73.8 ml/min; Est GFR (African American) 73.3; Est GFR (Non-African American) 63.3; Potassium 3.6 mmol/L (3.5-5.1)
--- NOTE | 2019-09-15 07:48 | Orthopedic Progress Note ---
Date of Service September 15, 2019 Assessment & Plan (1) History of left knee replacement: Overall he is doing very well. He is not having much pain in the left knee. He will be seen by physical therapy today for ambulation and range of motion exercises. He is on aspirin for DVT prophylaxis. He can be discharged home later this morning. He will follow-up with orthopedics in 2 weeks. Present on Admission?: Yes Joya Navarrete was seen and examined at bedside this morning. Overall he is doing very well. He is not having much pain in the left knee. He has already been up and ambulating in the hallways. He has no complaints. Physical Exam Musculoskeletal: On physical examination of the left knee, the dressing is clean and dry. He is lying with his knee in full extension with a pillow under his ankle. He has no complaints. Results & Data ([facility]) Vital Signs (Past 12 Hours) Vital Signs Temp Pulse Resp BP Pulse Ox 09/15/19 07:17 36.4 C L 81 18 114/72 93 09/15/19 03:30 36.7 C 101 H 18 125/77 95 09/14/19 23:04 36.4 C L 90 16 139/90 97 09/14/19 20:19 36.5 C 90 16 138/81 95 Laboratory Results H & H 09/15/19 Range/Units 06:49 Hgb 11.3 L (14.0-18.0) g/dL Hct 33.2 L (42-52) % Diagnostic Findings Postoperative x-rays of the left knee show the prosthesis to be in anatomic alignment without any evidence of fracture, dislocation, or loosening. PG Care Time/CCT Total # of Minutes Spent Total Time Spent with Patient: Total time spent is greater than 50% in coordination of care (as documented) at patient's floor/unit and/or counseling patient: Coding Level of Care Code None Diagnoses History of left knee replacement Z96.652
--- NOTE | 2019-09-15 07:53 | Discharge Summary ---
Date of Service September 15, 2019 Admission HPI Per Admitting Provider Landon is a pleasant 64-year-old male who is been dealing with chronic increasing left knee pain. X-rays and clinical examination have been diagnostic for primary osteoarthritis of the left knee. He had a left knee arthroscopy done about 15 years ago at [facility]. Unfortunately he continues to have a lot of knee pain. After failing conservative treatment, he has elected to proceed with a left total knee arthroplasty. Principal Diagnosis Left total knee arthroplasty Discharge Data Allergies Allergy/AdvReac Type Severity Reaction Status Date / Time lisinopril Allergy Severe ANGIOEDEMA Verified 09/14/19 08:33 Consultations 09/14/19 14:20 Consult Case Management - Discharge Planning Routine Procedures Performed Operation Date: 09/14/19 10:40 Actual Procedures p Left Total Knee Arthroplasty(Left) - Frandy Berman DO Ordered Studies 09/14/19 05:00 US - OR guided needle placemen Routine Hospital Course (1) History of left knee replacement: On September 14 2019 Fara arrived at [facility] and underwent a left total knee arthroplasty without complication. He had a spinal anesthetic. Postoperatively he was started on aspirin for DVT prophylaxis and discharged to general orthopedic floors. His hospital course was uneventful. On postop day #1 his H&H was stable and his pain was well controlled. He was able to participate well with physical therapy doing ambulation and range of motion exercises. He was then discharged home. He will follow-up with orthopedics in 2 weeks. Total Time Total Time Spent Total Time Spent (In Minutes): 20 Discharge Plan Discharge Items Reason For Visit: LEFT KNEE DEGENERATIVE JOINT DISEASE Discharge Diagnosis: Left total knee arthroplasty Activity: As commented below Non-emergency contact: Surgeon Call non-emergency contact if: your wound has increased redness and your wound has increased drainage Follow-up/Referrals: Fatoumata Anderson MD [Primary Care Provider] - Diet: Regular Addtl Attending Provider Instructions: Activity and Therapy Recommendations: * If you are using [facility] then therapy will be provided at your home until they feel you have accomplished all of your goals. * If you are using [facility] then Physical Therapy will be provided until they feel you are ready to start Outpatient Physical Therapy. * If you are not using home therapy then Outpatient Physical Therapy should start about 3-5 days from your day of surgery. Therapy will last about 6-10 weeks * It is important not to put a pillow under your knee when you are relaxing or sleeping. It is just as important to make sure you are getting your knee perfectly straight as it is to regain your knee bend. * You were shown a series of exercises in the hospital. Do these exercises three times each day including the exercises you were shown in physical therapy. * Get up and walk several times each day. For the first four weeks, try not to stand or walk for more than one hour at a time. If you do stand or walk for more than one hour, you will not hurt anything, but your leg will likely swell. * As you feel comfortable, you may change from the walker or crutches to a cane and then to independent walking. Medications: * Narcotic You will likely be sent home from the hospital with a prescription for the narcotic pain medication that worked best throughout your stay. * Aspirin Most patients will be required to take Aspirin 81mg twice a day for 6 weeks after surgery. This is obtained [id number] and a prescription is not necessary. * Other medications may be prescribed for specific circumstances. If you have any questions, please call the office at . * Resume previous home medications unless otherwise instructed TEDs/Elastic Stockings: The white elastic stockings help limit swelling and prevent blood clots from forming in your legs.~ The more you wear them, the more they work. Wear them for six weeks. Dressing Care: If the incision is not draining then you may leave the nhung open to air. If there is a little bit of drainage or if the nhung are getting stuck on your clothing then cover the incision with a dry dressing. The nhung will be removed at your 2 week follow-up appointment. Showering: You may shower 5 days from the day of surgery. Let the soapy shower water run over the nhung and pat them dry. Do not scrub or soak the incision. Things To Watch For: * Drainage from the incision site that occurs more than one week after your surgery. * Increased redness at the incision site. * Fever above 102 degrees Fahrenheit. * Unusual chest pain or shortness of breath. * Call [facility] at with any of the above problems Follow-Up Visit: Follow-up with Dr. Berman 2-3 weeks after your day of surgery. An appointment was probably scheduled when you signed-up for surgery in the office. If you have any questions call Office Instructions: More detailed instructions as well as Frequently Asked Questions were provided in a folder by our office when you signed-up for surgery. Please review these instructions when you get home. If you have any further questions or concerns, please feel free to call the office at [phone] Pending Studies at Discharge: No Stand-Alone Forms: My [facility] [facility], Smoking Cessation Medications and DC Order Prescriptions: New oxycodone 5 mg Tablet 5 mg PO Q4H PRN (Reason: pain) Qty: 30 RF: 0 aspirin [Ecotrin Low Strength] 81 mg Tablet,Delayed Release (Dr/Ec) 81 mg PO BID 42 Days Qty: 0 RF: 0 Continued turmeric root extract 500 mg Capsule 500 mg PO QAM Qty: 0 RF: 0 diclofenac sodium 75 mg tablet,delayed release (DR/EC) 75 mg PO BID Qty: 60 RF: 5 atorvastatin 40 mg tablet 40 mg PO HS Qty: 90 RF: 1 (DME) pen needle, diabetic [BD Ultra-Fine Kylah Pen Needle] 32 gauge x 5/32" needle See Rx Instructions .ROUTE .MEDSUPPLY Qty: 100 RF: 1 venlafaxine 150 mg capsule,extended release 24hr 150 mg PO DAILY Qty: 30 RF: 5 omeprazole 20 mg tablet,delayed release (DR/EC) 20 mg PO BID PRN (Reason: REFLUX) RF: 0 amiodarone 400 mg tablet 400 mg PO DAILY Qty: 10 RF: 0 acetaminophen [Tylenol 8 Hour] 650 mg Tablet Extended Release 650 mg PO Q8H PRN (Reason: Pain) RF: 0 Lantus U-100 Insulin 100 unit/mL Solution 15 unit SUBCUT HS RF: 0 amlodipine 5 mg tablet 5 mg PO QAM RF: 0 tamsulosin 0.4 mg capsule 0.4 mg PO HS RF: 0 hydrochlorothiazide 25 mg tablet 25 mg PO QAM RF: 0 Krames/Other Patient Handouts: SCI Healthy Breathing, Breathing Controlled Dc, Deep Breathing, Breathing Pursed Lip, Diabetes Foot Care Program, Understanding Supraventricular Tachycardia SVT, Treatment for Supraventricular Tachycardia SVT Admission Data Admit Date/Time: 09/14/19 13:09 Attending Provider: Frandy Berman Admit Provider: Frandy Berman Primary Care Provider: Fatoumata Anderson Coding Level of Care Code D/C Day Management <30 mins Diagnoses History of left knee replacement Z96.652
[2019-09-15] MEDS ORDERED: MULTIVITAMIN TAB PO SCH (09:00)
[2019-09-15] MEDS: ASPIRIN 81 MG ECTAB PO SCH (09:00)
[2019-09-15] MEDS: DOCUSATE SODIUM 100 MG CAP PO SCH (09:00)
[2019-09-15] MEDS ORDERED: hydroCHLOROthiazide 25 MG TAB PO SCH (09:00)
[2019-09-15] MEDS ORDERED: AMIODARONE 200 MG TAB PO SCH (09:00)
[2019-09-15] MEDS ORDERED: AMLODIPINE BESYLATE 5 MG TAB PO SCH (09:00)
[2019-09-15] MEDS ORDERED: VENLAFAXINE HCL XR 150 MG CAPXR PO SCH (09:00)
[2019-09-15] MEDS: INSULIN ASPART 100 UNITS/ML 3 ML PEN SC SCH (09:03)
== END 2019-09-15 11:50 | disposition home or self-care (01) ==
LOC: ASU 07:34 → 3E 07:34

== ENCOUNTER 2022-12-08 09:42 | Observation (INO) ==
[2022-12-08] MEDS ORDERED: SODIUM CHLORIDE 0.9% 500 ML IV ONE (10:58)
--- NOTE | 2022-12-08 11:03 | Emergency Department Note ---
Impression & Plan Chest pain, exertional, Leukocytosis, Shortness of breath ED Provider Note NAME: HECTOR JAMES III AGE: 67 SEX: M : 1955 ARRIVES VIA: Walk-In INFORMANT: Patient ED PROVIDER(S): Castillo Tracy DO CHIEF COMPLAINT: weakness HPI: Patient is a 67-year-old male with a past medical history of hyperlipidemia, diabetes, and SVT who presents the ER for weakness. He notes he has been weak and has had some increased shortness of breath over the past month. He notes that he has been chronically short of breath for decades. It did worsen over the past month. He does have some intermittent nausea. He had 1 episode of diarrhea earlier this week on Tuesday. He denies any chest pain. Shortness of breath is present with exertion and with rest. He notes he has not had any shortness of breath over the past 24 hours. Dizziness is mainly present in the morning when he wakes up and he sits up. This has been this way for the past several months but has become more frequent. He also admits to diffuse myalgias and arthralgias which has been present for several days. When he sits down this does resolve. PAST MEDICAL HISTORY:See Below PAST SURGICAL HISTORY:See Below FAMILY HISTORY:See Below SOCIAL HISTORY:See Below HOME MEDICATIONS:See Below ALLERGIES:See Below VITALS:See Below PHYSICAL EXAMINATION: GENERAL: Sitting up in bed, alert, well appearing, well nourished, no distress, non-toxic EYE EXAM: normal conjunctiva. PERRL and EOM's intact. OROPHARYNX:mucous membranes are moist NECK: supple, no nuchal rigidity, no adenopathy, non-tender LUNGS: Clear to auscultation. Normal chest wall mechanics HEART: no murmurs, S1 normal and S2 normal ABDOMEN: abdomen soft, non-tender, normo-active bowel sounds, no masses, no rebound or guarding. BACK: Back is symmetrical on inspection and there is no deformity, no midline tenderness, no CVA tenderness. SKIN: no rashes and no bruising UPPER EXTREMITIES: upper extremities are grossly normal. LOWER EXTREMITIES: No pitting edema. NEURO EXAM: Normal sensorium, cranial nerves II-XII intact, normal speech, no weakness of arms, no weakness of legs. No drift. Finger to nose intact. Gross sensation intact. MEDICAL DECISION MAKING: Patient is a 67-year-old male who presents ER for exertional shortness of breath and chest pain. IV was established blood work was obtained. External records were reviewed. Labs showed mild leukocytosis of 15,000. No significant anemia. D-dimer mildly elevated. CT angio of the chest was unremarkable. BMP LFTs bilirubin lipase and troponin was negative. UA was clean. Influenza COVID and RSV was negative. CT of the abdomen pelvis showed a pancreatic mass. This is discussed with the patient. He was updated bedside. He was given aspirin. He currently has no chest pain. CT did show a fair amount of coronary artery calcifications and consequently did discuss with the hospitalist Dr. Maunel Martinez for further evaluation and monitoring EKG was nondiagnostic Triage Nursing notes reviewed. Limited review of prior medical records performed Vital Signs: reviewed and remarkable for HTN Differential diagnosis: Differential diagnoses includes but is not limited to pneumonia, bronchitis, COPD/Asthma exacerbation, pneumothorax, pulmonary embolism, congestive heart failure, acute coronary syndrome ER treatment provided: See below Diagnostics interpreted by me include EKG and cardiac monitoring as listed below: -Cardiac Monitoring: An order was placed for continuous cardiac monitoring. The monitor shows a rate of 80 with sinus rhythm. -ECG: Sinus rhythm rate 82 Normal axis No PVCs QTc 434 -Laboratory studies:Interpreted by me as stated above in MDM and shown below. Imaging studies: Xrays: As interpreted by me: Portable AP upright 1 view of the chest shows no focal infiltrate CTs show: CT angio of the chest and abdomen as described above Consultation(s): As described in MDM Procedures:none Critical Care: None Past Med/Surg History Medical History Anxiety and depression Arthritis Diabetes type 2, controlled GERD (gastroesophageal reflux disease) History of COVID-19 Hyperlipidemia Hypertension Migraines Neuropathy of both feet Nocturia Obesity Osteoarthritis Skin cancer Sleep apnea SVT (supraventricular tachycardia) Surgical History History of appendectomy History of carpal tunnel surgery of right wrist History of cataract surgery History of eye surgery History of left knee replacement (~09/2019) History of surgery History of tonsillectomy Hx of arthroscopy of left knee Hx of arthroscopy of right knee Hx of colonoscopy Hx of total shoulder replacement Family History Mother Ovarian cancer Breast cancer Aunt Breast cancer Father Diabetes Cardiac disorder Grandmother (Maternal) Metastatic neoplastic disease Other No family history of adverse response to anesthesia Denies family history of Prostate cancer Myocardial infarction Colorectal cancer Social History Smoking Status: Never smoker Second Hand Exposure: No; Do You Dip or Chew Tobacco: No; Hx Alcohol Use: No Preferred Language: Bengali Communication Ability: Effective Visual Impairment: Limited Hearing Ability: Hard of Hearing Duty Manager Required: No Beliefs That Will Affect Care: None marital status: Current Living Situation: Spouse current occupational status: retired How many Children do You have: 1 Feels Safe at Home: Yes Childhood Exposure to Second-Hand Smoke: No Diet: regular caffeine: Yes during the past year weight has: remained stable Dental Care, Regularly: Yes Physical Activity Frequency: Does not Exercise Seatbelt Use: sometimes Sunscreen Use: No Assistive Devices: Cane, CPAP and Glasses Allergies Allergies Allergy/AdvReac Type Severity Reaction Status Date / Time lisinopril Allergy Severe ANGIOEDEMA Verified 12/08/22 13:44 Home Meds Home Medications Medication Instructions Recorded Confirmed acetaminophen 650 mg 650 mg PO Q8H PRN Pain 03/31/18 12/08/22 tablet,extended release (Tylenol 8 Hour) omeprazole 20 mg tablet,delayed 20 mg PO BID PRN REFLUX 06/29/19 12/08/22 release insulin glargine 100 unit/mL (3 20 unit subcut QPM 09/17/22 12/08/22 mL) subcutaneous pen (Lantus Solostar U-100 Insulin) venlafaxine 150 mg 150 mg PO QAM 09/17/22 12/08/22 capsule,extended release 24 hr cyclobenzaprine 5 mg tablet 5 - 10 mg PO HS PRN Muscle Pain 11/19/22 12/08/22 amlodipine 2.5 mg tablet 2.5 mg PO QAM 12/08/22 12/08/22 atorvastatin 40 mg tablet 40 mg PO HS 12/08/22 12/08/22 hydrochlorothiazide 25 mg tablet 25 mg PO QAM 12/08/22 12/08/22 meloxicam 15 mg tablet 15 mg PO DAILY 12/08/22 12/08/22 Previous Rx's Medication Instructions Recorded SHORT COCK UP WRIST BRACE #2 ea 02/24/21 CPAP Machine See Rx Instructions .Route 10/21/21 .COMPLEX #1 ea pen needle, diabetic 32 gauge x #100 ea 07/13/22 5/32" (BD Ultra-Fine Kylah Pen Needle) tamsulosin 0.4 mg capsule 0.8 mg PO HS #180 caps 08/23/22 canagliflozin 100 mg tablet 100 mg PO QAM #30 tabs 10/28/22 (Invokana) diclofenac sodium 75 mg 75 mg PO BID #60 tabs 10/28/22 tablet,delayed release Results & Data (ED) Vital Signs Vital Signs - 24 hr 12/08/22 09:55 12/08/22 10:27 12/08/22 10:50 Temperature 36.8 C Temperature Source Temporal Artery Scan Pulse Rate 94 H Pulse Rate [Apical] 86 Pulse Rhythm [Apical] Regular Respiratory Rate 21 21 Respiratory Effort / Characteristics Non-Labored Non-Labored Spontaneous Respiratory Depth Normal Normal Respiratory Pattern Blood Pressure 145/96 H Blood Pressure [Right Arm] 142/100 H Blood Pressure Mean 112 Blood Pressure Mean [Right Arm] 114 Blood Pressure Position Sitting Blood Pressure Position [Right Arm] Right Lateral Pulse Oximetry 98 96 Oxygen Delivery Method Room Air Room Air Room Air Sepsis Recent Fever Within 48 Hours No Sepsis New/Unexplained Change in Mental Status N/A Sepsis Action Taken by Nursing No Action Required 12/08/22 11:30 12/08/22 12:18 12/08/22 14:20 Temperature Temperature Source Pulse Rate 85 74 Pulse Rate [Apical] 83 Pulse Rhythm [Apical] Regular Respiratory Rate 25 H Respiratory Effort / Characteristics Non-Labored Spontaneous Respiratory Depth Normal Respiratory Pattern Regular Blood Pressure Blood Pressure [Right Arm] 125/98 Blood Pressure Mean Blood Pressure Mean [Right Arm] 107 Blood Pressure Position Blood Pressure Position [Right Arm] Pulse Oximetry 99 Oxygen Delivery Method Sepsis Recent Fever Within 48 Hours Sepsis New/Unexplained Change in Mental Status Sepsis Action Taken by Nursing 12/08/22 13:00 12/08/22 14:00 Temperature Temperature Source Pulse Rate Pulse Rate [Apical] 74 76 Pulse Rhythm [Apical] Respiratory Rate 18 21 Respiratory Effort / Characteristics Non-Labored Spontaneous Non-Labored Spontaneous Respiratory Depth Normal Normal Respiratory Pattern Blood Pressure Blood Pressure [Right Arm] 124/91 132/93 Blood Pressure Mean Blood Pressure Mean [Right Arm] 102 106 Blood Pressure Position Blood Pressure Position [Right Arm] Pulse Oximetry 95 96 Oxygen Delivery Method Room Air Room Air Sepsis Recent Fever Within 48 Hours Sepsis New/Unexplained Change in Mental Status Sepsis Action Taken by Nursing Laboratory Data 12/08/22 10:29 12/08/22 10:29 Lab Results 12/08/22 12/08/22 12/08/22 Range/Units 10:29 10:29 10:29 WBC 15.88 H (4.8-10.8) K/ul RBC 5.40 (4.70-6.10) M/uL Hgb 16.9 (14.0-18.0) g/dl Hct 49.3 (42.0-52.0) % MCV 91.3 (80.0-100.0) fL MCH 31.3 (25.0-34.0) pg MCHC 34.3 (32.0-36.0) g/dL RDW Std Deviation 47.4 H (36.4-46.3) fL RDW Coeff of Rudy 14.2 (11.5-14.5) % Plt Count 331 (130-400) K/uL MPV 9.0 L (9.4-12.4) fL Immature Gran % (Auto) 0.6 % Neut % (Auto) 76.9 % Lymph % (Auto) 15.5 % Ransom % (Auto) 6.0 % Eos % (Auto) 0.8 % Baso % (Auto) 0.2 % Neut # (Auto) 12.22 H (1.40-6.50) K/uL Lymph # (Auto) 2.46 (1.2-3.4) K/uL Ransom # (Auto) 0.95 H (0.11-0.59) K/uL Eos # (Auto) 0.13 (0-0.50) K/uL Baso # (Auto) 0.03 (0-0.2) K/uL Immature Gran # (Auto) 0.09 (0.01-0.20) K/uL D-Dimer 570 H* (0-500) ug/L FEU Sodium 136 (136-145) mmol/L Potassium 4.0 (3.5-5.1) mmol/L Chloride 104 (98-107) mmol/L Carbon Dioxide 25 (21-32) mmol/L Anion Gap 7 (3-11) BUN 35 H (6-23) mg/dl Creatinine 0.92 (0.6-1.4) mg/dl Est Cr Clr Drug Dosing 93.9 ml/min Est GFR ( Amer) 98.0 ml/min Est GFR (Non-Af Amer) 84.6 ml/min BUN/Creatinine Ratio 38.0 H (10-20) Glucose 146 H (70-99(Fasting)) mg/dl Calcium 9.2 (8.6-10.3) mg/dl Total Bilirubin 0.7 (0.2-1.0) mg/dl AST 15 (13-39) U/L ALT 29 (7-52) U/L Alkaline Phosphatase 78 (34-104) U/L Troponin I High Sens 7.4 (0-20) pg/ml Total Protein 7.8 (6.0-8.3) gm/dl Albumin 4.2 (3.4-5.0) gm/dl Globulin 3.6 (2.5-4.0) gm/dl Albumin/Globulin Ratio 1.2 (0.9-2) Lipase 30 (11-82) U/L Urine Color Urine Appearance (Clear) Urine pH (4.5-7.5) Ur Specific Repton (1.000-1.030) Urine Protein (Negative) Urine Glucose (UA) (Negative) Urine Ketones (Negative) Urine Blood (Negative) Urine Nitrite (Negative) Urine Bilirubin (Negative) Urine Urobilinogen (Negative) Ur Leukocyte Esterase (Negative) Urine WBC (Auto) (0-5) /hpf Urine RBC (Auto) (0-4) /hpf U Hyaline Cast (Auto) (0-5) /lpf U Epithel Cells (Auto) (0-5) /lpf Urine Bacteria (Auto) (Negative) SARS-CoV-2 (PCR) (Negative) Influenza Type A (PCR) (Neg) Influenza Type B (PCR) (Neg) RSV (RT-PCR) (Neg) 12/08/22 12/08/22 Range/Units 10:29 10:29 WBC (4.8-10.8) K/ul RBC (4.70-6.10) M/uL Hgb (14.0-18.0) g/dl Hct (42.0-52.0) % MCV (80.0-100.0) fL MCH (25.0-34.0) pg MCHC (32.0-36.0) g/dL RDW Std Deviation (36.4-46.3) fL RDW Coeff of Rudy (11.5-14.5) % Plt Count (130-400) K/uL MPV (9.4-12.4) fL Immature Gran % (Auto) % Neut % (Auto) % Lymph % (Auto) % Ransom % (Auto) % Eos % (Auto) % Baso % (Auto) % Neut # (Auto) (1.40-6.50) K/uL Lymph # (Auto) (1.2-3.4) K/uL Ransom # (Auto) (0.11-0.59) K/uL Eos # (Auto) (0-0.50) K/uL Baso # (Auto) (0-0.2) K/uL Immature Gran # (Auto) (0.01-0.20) K/uL D-Dimer (0-500) ug/L FEU Sodium (136-145) mmol/L Potassium (3.5-5.1) mmol/L Chloride (98-107) mmol/L Carbon Dioxide (21-32) mmol/L Anion Gap (3-11) BUN (6-23) mg/dl Creatinine (0.6-1.4) mg/dl Est Cr Clr Drug Dosing ml/min Est GFR ( Amer) ml/min Est GFR (Non-Af Amer) ml/min BUN/Creatinine Ratio (10-20) Glucose (70-99(Fasting)) mg/dl Calcium (8.6-10.3) mg/dl Total Bilirubin (0.2-1.0) mg/dl AST (13-39) U/L ALT (7-52) U/L Alkaline Phosphatase (34-104) U/L Troponin I High Sens (0-20) pg/ml Total Protein (6.0-8.3) gm/dl Albumin (3.4-5.0) gm/dl Globulin (2.5-4.0) gm/dl Albumin/Globulin Ratio (0.9-2) Lipase (11-82) U/L Urine Color Dark Yellow Urine Appearance Clear (Clear) Urine pH 5.5 (4.5-7.5) Ur Specific Repton 1.035 H (1.000-1.030) Urine Protein 2+ H (Negative) Urine Glucose (UA) 3+ H (Negative) Urine Ketones Negative (Negative) Urine Blood Negative (Negative) Urine Nitrite Negative (Negative) Urine Bilirubin Negative (Negative) Urine Urobilinogen Negative (Negative) Ur Leukocyte Esterase Negative (Negative) Urine WBC (Auto) 1-5 (0-5) /hpf Urine RBC (Auto) 0-4 (0-4) /hpf U Hyaline Cast (Auto) 1-5 (0-5) /lpf U Epithel Cells (Auto) 10-20 H (0-5) /lpf Urine Bacteria (Auto) Negative (Negative) SARS-CoV-2 (PCR) NEGATIVE (Negative) Influenza Type A (PCR) Negative (Neg) Influenza Type B (PCR) Negative (Neg) RSV (RT-PCR) Negative (Neg) Administered Medications Discontinued Medications Sodium Chloride (Nss) 500 mls @ 999 mls/hr IV .Q31M ONE Stop: 12/08/22 11:28 Last Infusion: 12/08/22 12:19 Dose: 0 mls/hr Documented By: Admin: 12/08/22 11:39 Dose: 999 mls/hr Documented By: MISTY Ioversol (Optiray 320 500ml) 112 ml IV ONCE ONE Stop: 12/08/22 12:35 Last Admin: 12/08/22 12:27 Dose: 112 ml Documented By: [facility] Imaging Data Radiologist's Impression: Chest X-Ray 12/08/22 10:48 SINGLE VIEW CHEST CLINICAL HISTORY: Atypical chest pain FINDINGS: An AP, portable, upright chest radiograph is compared to study dated 08/12/2011 and correlated with chest CT dated 12/10/2019. The examination is degraded by portable technique and apical lordotic positioning. The heart is moderately enlarged noting atherosclerotic calcification of the thoracic aorta. The pulmonary vasculature is noncongested. There is bibasilar scarring/atel ectasis. No airspace consolidation or large pleural effusion is identified. No pneumothorax is seen. The skeletal structures are osteopenic. The bony thorax is grossly intact. Bilateral shoulder arthroplasties are in place. IMPRESSION: Mild cardiomegaly with no acute cardiopulmonary abnormality identified. ACT 112: Negative or not required by law. Electronically signed by: Gabriel Easley M.D. 12/08/2022 11:04 AM Abdomen/Pelvis CT 12/08/22 12:[address] WITH IV CONTRAST CT DOSE: HISTORY: Generalized abdominal pain. Leukocytosis. TECHNIQUE: Multiaxial CT images of the abdomen and pelvis were performed foll owing the use of intravenous contrast. A dose lowering technique was utilized adhering to the principles of ALARA. COMPARISON STUDY: Abdomen and pelvis CT 08/09/2016. FINDINGS: There is a stable 4 mm nodule within the left lower lobe on image 27. Therefore, this is likely benign. The lung bases will be reported on the same day chest CT. No pneumoperitoneum. No pneumatosis. No acute fractures identified. Increase in size in a 2.6 cm hypodense lesion within the uncinate process of the pancreas. This previously measured 2.0 cm. There is a 13 mm c ystic lesion at the pancreatic tail in image 121 which is also slightly increased in size previously measuring 11 mm. No enhancing pancreatic masses identified. The liver, spleen, and adrenal glands unremarkable. There are few punctate gallstones. No gallbladder wall thickening. A few small bilateral peripelvic cysts are again noted. Decrease in size in the now 2.3 cm hypodense lesion within the left kidney. This contains a small amount of peripheral calcification. This favors a cyst. No hydronephrosis. The main portal vein is patent. Normal caliber abdominal aorta. No retroperitoneal lymphadenopathy. The bladder is unremarkable. No pelvic free fluid or pelvic lymphadenopathy. Colonic diverticulosis. No evidence for acute diverticulitis. No bowel wall thickening or obstruction. Prior appendectomy. IMPRESSION: 1. No bowel wall thickening or obstruction. 2. Colonic diverticulosis. No evidence for acute diverticulitis. 3. Cholelithiasis. No gallbladder wall thickening. 4. Increase in size in the cystic lesions within the pancreas with the largest at the uncinate process of the pancreas measuring 2.6 cm. These favor cystic neoplasms such as serous cystadenomas or side branch intraductal papillary mucinous neoplasms. Follow-up nonemergent GI consultation recommended for further evaluation. ACT 112: Negative or not required by law. Electronically signed by: Robson Quiles M.D. 12/08/2022 12:55 PM Chest CTA 12/08/22 12:08 CT ANGIOGRAM OF THE CHEST CLINICAL HISTORY: Atypical chest pain. Dyspnea. Dizziness. Leukocytosis. COMPARISON STUDY: Chest x-ray dated 12/08/2022. Chest CT dated 12/10/2019. TECHNIQUE: Following the IV administration of 112 cc of Optiray 320, CT angiogram of the chest was performed from the upper abdomen to the thoracic inlet utilizing the pulmonary embolus protocol. Images are reviewed in the axial, sagittal, and coronal planes. 3-D MIPS images are created and assessed. IV contrast was administered without complication. A dose lowering technique was utilized adhering to the principles of ALARA. CT DOSE: 2597.86 mGy.cm FINDINGS: Thyroid: Normal in size and heterogeneous in attenuation. Thoracic aorta: There is mild atherosclerotic calcification of the thoracic aorta, with is normal in caliber and demonstrates standard 3-vessel arch anatomy. No dissection is seen. Pulmonary vasculature: The pulmonary trunk is normal in caliber. There are no filling defects identified in main, lobar, or segmental pulmonary branches to suggest pulmonary embolus. Heart: The heart is mildly enlarged noting trace pericardial effusion. The coronary arteries are densely calcified. Lungs and pleural spaces: There is no airspace consolidation or pleural effusion. Dependent atelectasis is seen bilaterally. The trachea and central airways are patent. A 3 mm right lower lobe pulmonary nodule image #140 is unchanged from 12/10/2019, as is a 3 mm right upper lobe nodule on image #197 and a 4 mm left lower lobe nodule on image #149. These are of low suspicion given 2 years of stability. Mediastinum: There is no mediastinal lymphadenopathy. Neha: Clear. Axillae: There is no axillary lymphadenopathy. Upper abdomen: There are tiny calcified gallstones with no CT evidence of acute cholecystitis. The liver appears steatotic. A small hiatal hernia is noted Skeletal structures: The skeletal structures are osteopenic. Mild degenerative change is noted in the spine. No lytic or blastic bony lesions are seen. There are bilateral shoulder arthroplasties. IMPRESSION: 1. There is no evidence of pulmonary embolus in the main, lobar, or segmental pulmonary arteries. 2. There is no airspace consolidation or pleural effusion. 3. Cardiomegaly advanced coronary artery atherosclerosis. 4. Additional findings as above. ACT 112: Negative or not required by law. Electronically signed by: Gabriel Easley M.D. 12/08/2022 12:56 PM Discharge Plan Visit Data Chief Complaint: Lethargic Stated Complaint: LETHARGIC, SOB ED Provider: Castillo Tracy Discharge Problem: Chest pain, exertional, Leukocytosis, Shortness of breath Forms Stand Alone Forms: My [facility] Prescriptions Prescriptions: No Action (DME) pen needle, diabetic [BD Ultra-Fine Kylah Pen Needle] 32 gauge x 5/32" needle See Rx Instructions .ROUTE .MEDSUPPLY Qty: 100 1RF Rx Instructions: Use to inject Lantus once daily tamsulosin 0.4 mg capsule 0.8 mg PO HS Qty: 180 1RF omeprazole 20 mg tablet,delayed release (DR/EC) 20 mg PO BID PRN (Reason: REFLUX) Invokana 100 mg tablet 100 mg PO QAM Qty: 30 2RF diclofenac sodium 75 mg tablet,delayed release (DR/EC) 75 mg PO BID Qty: 60 5RF (DME) SHORT COCK UP WRIST BRACE Misc See Rx Instructions .Route Qty: 2 0RF Rx Instructions: for CTS CPAP Machine Misc See Rx Instructions .ROUTE .COMPLEX Qty: 1 0RF Rx Instructions: 12 cmH2O, mask fit patient comfort, heated humidification, compliance download capabilities, [facility]; cyclobenzaprine 5 mg tablet 5 - 10 mg PO HS PRN (Reason: Muscle Pain) acetaminophen [Tylenol 8 Hour] 650 mg Tablet Extended Release 650 mg PO Q8H PRN (Reason: Pain) atorvastatin 40 mg tablet 40 mg PO HS meloxicam 15 mg tablet 15 mg PO DAILY amlodipine 2.5 mg tablet 2.5 mg PO QAM hydrochlorothiazide 25 mg tablet 25 mg PO QAM venlafaxine 150 mg capsule,extended release 24hr 150 mg PO QAM insulin glargine [Lantus Solostar U-100 Insulin] 100 unit/mL (3 mL) insulin pen 20 unit SQ QPM Patient Comments: pt states taking 20 units now at hs Referrals Referrals: Fatoumata Anderson MD [Primary Care Provider] -
--- NOTE | 2022-12-08 11:06 | XRay Report ---
SINGLE VIEW CHEST CLINICAL HISTORY: Atypical chest pain FINDINGS: An AP, portable, upright chest radiograph is compared to study dated 08/12/2011 and correlate d with chest CT dated 12/10/2019. The examination is degraded by portable technique and apical lordotic positioning. The heart is moderately enlarged noting atherosclerotic calcification of the thoracic a cesario. The pulmonary vasculature is noncongested. There is bibasilar scarring/atelectasis. No airspace consolidation or large pleural effusion is identified. No pneumothorax is seen. The skeletal structu res are osteopenic. The bony thorax is grossly intact. Bilateral shoulder arthroplasties are in place . IMPRESSION: Mild cardiomegaly with no acute cardiopulmonary abnormality identified. ACT 112: Negative or not required by law. Electronically signed by: Gabriel Easley M.D. 12/08/2022 11:04 AM
[2022-12-08 11:17] LABS: Basophils # (auto) 0.03 K/uL (0-0.2); Basophils % (auto) 0.2 %; Eosinophils # (auto) 0.13 K/uL (0-0.50); Eosinophils % (auto) 0.8 %; Hematocrit (blood only) 49.3 % (42.0-52.0); Hemoglobin 16.9 g/dl (14.0-18.0); Immature Granulocytes # (auto) 0.09 K/uL (0.01-0.20); Immature Granulocytes % (auto) 0.6 %; Lymphocytes # (auto) 2.46 K/uL (1.2-3.4); Lymphocytes % (auto) 15.5 %; Mean Corpuscular Hemoglobin 31.3 pg (25.0-34.0); Mean Corpuscular Hgb Conc 34.3 g/dL (32.0-36.0); Mean Corpuscular Volume 91.3 fL (80.0-100.0); Monocytes # (auto) 0.95 K/uL (0.11-0.59); Neutrophils # (auto) 12.22 K/uL (1.40-6.50); Neutrophils % (auto) 76.9 %; Platelet Count 331 K/uL (130-400); RDW Coefficient of Variation 14.2 % (11.5-14.5); RDW Standard Deviation 47.4 fL (36.4-46.3); White Blood Count 15.88 K/ul (4.8-10.8)
[2022-12-08 11:22] LABS: Albumin Globulin Ratio 1.2 (0.9-2); Albumin Level 4.2 gm/dl (3.4-5.0); Bilirubin,Total 0.7 mg/dl (0.2-1.0); Calcium 9.2 mg/dl (8.6-10.3); Creatinine Clr Calc Pharmacy 93.9 ml/min; Est GFR (Non-African American) 84.6 ml/min; Globulin 3.6 gm/dl (2.5-4.0); Total Protein 7.8 gm/dl (6.0-8.3)
[2022-12-08 11:28] LABS: Troponin I High Sensitivity 7.4 pg/ml (0-20)
[2022-12-08 11:54] LABS: D Dimer 570 ug/L FEU (0-500)
[2022-12-08 11:59] LABS: Appearance Urine Clear (Clear); Bacteria Urine Automated Negative (Negative); Bilirubin Urine Negative (Negative); Blood Urine Negative (Negative); Color Urine Dark Yellow; Glucose Urine UA 3+ (Negative); Ketones Urine Negative (Negative); Leukocyte Esterase Urine Negative (Negative); Nitrite Urine Negative (Negative); Protein Urine 2+ (Negative); RBC Urine Automated 0-4 /hpf (0-4); Specific Gravity Urine 1.035 (1.000-1.030); Urobilinogen Urine Negative (Negative); pH Urine 5.5 (4.5-7.5)
[2022-12-08 12:33] LABS: Influenza A virus by PCR Negative (Neg); Influenza B virus by PCR Negative (Neg); RSV by PCR Negative (Neg); SARS CoV2 RNA(COVID-19) Ceph NEGATIVE (Negative)
[2022-12-08] MEDS ORDERED: OPTIRAY 320 500ml IV ONE (12:34)
--- NOTE | 2022-12-08 12:56 | CT Scan Report ---
ABDOMEN AND PELVIS CT WITH IV CONTRAST CT DOSE: HISTORY: Generalized abdominal pain. Leukocytosis. TECHNIQUE: Multiaxial CT images of the abdomen and pelvis were performed following the use of intrave nous contrast. A dose lowering technique was utilized adhering to the principles of ALARA. COMPARISON STUDY: Abdomen and pelvis CT 08/09/2016. FINDINGS: There is a stable 4 mm nodule within the left lower lobe on image 27. Therefore, this is li jeffrey benign. The lung bases will be reported on the same day chest CT. No pneumoperitoneum. No pneuma tosis. No acute fractures identified. Increase in size in a 2.6 cm hypodense lesion within the uncina te process of the pancreas. This previously measured 2.0 cm. There is a 13 mm cystic lesion at the pa ncreatic tail in image 121 which is also slightly increased in size previously measuring 11 mm. No en hancing pancreatic masses identified. The liver, spleen, and adrenal glands unremarkable. There are f ew punctate gallstones. No gallbladder wall thickening. A few small bilateral peripelvic cysts are ag ain noted. Decrease in size in the now 2.3 cm hypodense lesion within the left kidney. This contains a small amount of peripheral calcification. This favors a cyst. No hydronephrosis. The main portal ve in is patent. Normal caliber abdominal aorta. No retroperitoneal lymphadenopathy. The bladder is unre markable. No pelvic free fluid or pelvic lymphadenopathy. Colonic diverticulosis. No evidence for acu te diverticulitis. No bowel wall thickening or obstruction. Prior appendectomy. IMPRESSION: 1. No bowel wall thickening or obstruction. 2. Colonic diverticulosis. No evidence for acute diverticulitis. 3. Cholelithiasis. No gallbladder wall thickening. 4. Increase in size in the cystic lesions within the pancreas with the largest at the uncinate proces s of the pancreas measuring 2.6 cm. These favor cystic neoplasms such as serous cystadenomas or side branch intraductal papillary mucinous neoplasms. Follow-up nonemergent GI consultation recommended fo r further evaluation. ACT 112: Negative or not required by law. Electronically signed by: Robson Quiles M.D. 12/08/2022 12:55 PM
--- NOTE | 2022-12-08 12:57 | CT Scan Report ---
CT ANGIOGRAM OF THE CHEST CLINICAL HISTORY: Atypical chest pain. Dyspnea. Dizziness. Leukocytosis. COMPARISON STUDY: Chest x-ray dated 12/08/2022. Chest CT dated 12/10/2019. TECHNIQUE: Following the IV administration of 112 cc of Optiray 320, CT angiogram of the chest was pe rformed from the upper abdomen to the thoracic inlet utilizing the pulmonary embolus protocol. Images are reviewed in the axial, sagittal, and coronal planes. 3-D MIPS images are created and assessed. I V contrast was administered without complication. A dose lowering technique was utilized adhering to the principles of ALARA. CT DOSE: 2597.86 mGy.cm FINDINGS: Thyroid: Normal in size and heterogeneous in attenuation. Thoracic aorta: There is mild atherosclerotic calcification of the thoracic aorta, with is normal in caliber and demonstrates standard 3-vessel arch anatomy. No dissection is seen. Pulmonary vasculature: The pulmonary trunk is normal in caliber. There are no filling defects identif ied in main, lobar, or segmental pulmonary branches to suggest pulmonary embolus. Heart: The heart is mildly enlarged noting trace pericardial effusion. The coronary arteries are dens brayden calcified. Lungs and pleural spaces: There is no airspace consolidation or pleural effusion. Dependent atelectas is is seen bilaterally. The trachea and central airways are patent. A 3 mm right lower lobe pulmonary nodule image #140 is unchanged from 12/10/2019, as is a 3 mm right upper lobe nodule on image #197 and a 4 mm left lower lobe nodule on image #149. These are of low suspicion given 2 years of stability. Mediastinum: There is no mediastinal lymphadenopathy. Neha: Clear. Axillae: There is no axillary lymphadenopathy. Upper abdomen: There are tiny calcified gallstones with no CT evidence of acute cholecystitis. The li stan appears steatotic. A small hiatal hernia is noted Skeletal structures: The skeletal structures are osteopenic. Mild degenerative change is noted in the spine. No lytic or blastic bony lesions are seen. There are bilateral shoulder arthroplasties. IMPRESSION: 1. There is no evidence of pulmonary embolus in the main, lobar, or segmental pulmonary arteries. 2. There is no airspace consolidation or pleural effusion. 3. Cardiomegaly advanced coronary artery atherosclerosis. 4. Additional findings as above. ACT 112: Negative or not required by law. Electronically signed by: Gabriel Easley M.D. 12/08/2022 12:56 PM
--- NOTE | 2022-12-08 14:06 | Electrocardiogram Report ---
Test Reason : Blood Pressure : / mmHG Vent. Rate : 082 BPM Atrial Rate : 082 BPM P-R Int : 170 ms QRS Dur : 100 ms QT Int : 372 ms P-R-T Axes : 023 -28 028 degrees QTc Int : 434 ms Normal sinus rhythm Minimal voltage criteria for LVH, may be normal variant ( R in aVL ) Borderline ECG When compared with ECG of 06-MAY-2022 23:47, Premature atrial complexes are no longer Present Confirmed by Ney Cordova ([id number]) on 12/08/2022 2:06:08 PM Referred By: REFERRED SELF Confirmed By:Ney Cordova
[2022-12-08] MEDS ORDERED: ASPIRIN CHEW 324 MG PO STA (14:21)
--- NOTE | 2022-12-08 15:34 | History & Physical Report ---
Date of Service December 08, 2022 Assessment & Plan (1) Shortness of breath on exertion: Plan: Concern for possible unstable angina as unclear if having chest tightness - denied to me but reportedly telling his he was having this during episodes Trend troponins over night and NPO after midnight for dobutamine stress echo tomorrow. Lipid panel and HbA1C with AM labs (2) Fatigue: Plan: Unclear etiology on admission. Constellation of acute symptoms: early satiety, frequent urination, decreased appetite, shortness of breath on exertion, abdominal pain, episode of diarrhea, dizziness, unintentional weight loss Additional testing ordered with Lyme, B12, ESR, CRP, procalcitonin, magnesium, phosphorus, CT head ?pancreatic mass (given slow growing appears this is unlikely causing his acute problems in last 3 weeks ?Invokana, this was started in October - if everything else negative consider stopping this given likely causing his frequent urination during the day and probably making him more tired (3) Leucocytosis: Plan: No cause for this found on admission. No infection found on CT C/A/P, UA and no cellulitis on exam. No history of autoimmune disease. Unclear if related to constellation of symptoms as above but will get inflammatory markers and elecated to trend initially. (4) Pancreatic mass: Plan: Given his unintentional weight loss will ask GI to consult while he is here. Possibly they can weight in on his early satiety as well (5) Hyperlipidemia: Plan: Continue atorvastatin (6) GERD (gastroesophageal reflux disease): Plan: Start pantoprazole 40mg PO BID instead of PRN in case this is causing his decreased appetite and early satiety (7) Hypertension, goal below 140/90: Plan: Continue amlodipine, HCTZ (8) Type 2 diabetes mellitus treated with insulin: Plan: HbA1C 6.8 in April 2022, repeat with AM labs Hold Invokana (consider d/c on discharge id not other cause of his symptoms found Continue Lantus 20 units HS Novolog: --Goal BSG Range: Low 110 mg/dL, High 140 mg/dL --Correction Factor: 40 mg/dL/unit --Carbohydrate ratio = 13 g/unit --BSGs ACHS if eating, q6h if npo (9) Anxiety: Plan: Continue venlafaxine (10) 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: Plan: Noted history of this causing left sided foot drop (11) BPH w urinary obs/LUTS: Plan: Worsening symptoms ?due to Invokana Consider f/u with urology Continue tamsulosin Plan VTE Prophylaxis - Lovenox 40mg SQ daily Diet - heart healthy, T2DM, NPO after midnight Disposition - admit to med/tele Admission and Anticipated Discharge Date Admission Date: December 08, 2022 History of Present Illness Chief Complaint: Shortness of breath, dizziness, fatigue, decreased appetite Primary Care Provider: Fatoumata Anderson MD Landon Aguiar is a 67 year old male who presents to the ER with progressive worsening shortness of breath, dizziness, decreased energy nausea, urination issues, decreased appetite. He appears to have had a significant decline over the last 3 weeks with nausea, fatigue, decreased appetite, early satiety, diarrhea (only for one day on Tuesday, 8 times), shortness of breath on exertion, abdominal pain on exertion. These symptoms have been progressively getting worse over this time and he has been able to do less and less. He is sleeping for 18- 20 hours a day with 11 hours at night and napping during the day time. He reports central abdominal pain only after moving objects around in his garage and resting after this feels like he has strained a muscle. No current abdominal pain, nausea or diarrhea. He denies any worsening reflux symptoms. He reports losing 11lb over the period with unintentional weight loss. His main complaint and concern from his is he worsening exercise tolerance with shortness of breath on exertion. He denies any history of asthma, COPD and does not use any inhalers. He is unsure of having chest tightness but his reports he has been complaining of this on exertion in addition. No prior history of MD or stroke in the past. However significant risk factors for this with HTN, diabetes, FRANDY, hyperlipidemia, male and age. His dizziness is difficult to discern whether this is lightheadedness, vertigo or just ambulatory dysfunction. It appears to have been going on longer for around 6 months but much worse in the last 3 weeks as well. Worse when leaning over or getting up but now having room spinning sensations when he is just sitting down. He also reports falling to the left side while walking. His urination issues having been going on for years with nocturia getting up at night every few hours. He takes tamsulosin for this and is under urology. However in the last 3 weeks he has also been having frequent urination during the day time as well. No dysuria, fever, chills, flank pain, change in color or smell. Initial troponin negative and no acute changes on EKG. However given worsening shortness of breath on exertion getting worse over the last 3 weeks he was referred to medicine for admission and ongoing management for concern of unstable angina. Allergies Allergy/AdvReac Type Severity Reaction Status Date / Time lisinopril Allergy Severe ANGIOEDEMA Verified 12/08/22 13:44 Home Medications Medication Instructions Recorded Confirmed Type acetaminophen 650 mg 650 mg PO Q8H PRN Pain 03/31/18 12/08/22 History tablet,extended release (Tylenol 8 Hour) omeprazole 20 mg tablet,delayed 20 mg PO BID PRN REFLUX 06/29/19 12/08/22 History release SHORT COCK UP WRIST BRACE #2 ea 02/24/21 12/08/22 Rx CPAP Machine See Rx Instructions .Route 10/21/21 12/08/22 Rx .COMPLEX #1 ea pen needle, diabetic 32 gauge x #100 ea 07/13/22 12/08/22 Rx 5/32" (BD Ultra-Fine Kylah Pen Needle) tamsulosin 0.4 mg capsule 0.8 mg PO HS #180 caps 08/23/22 12/08/22 Rx insulin glargine 100 unit/mL (3 20 unit subcut QPM 09/17/22 12/08/22 History mL) subcutaneous pen (Lantus Solostar U-100 Insulin) venlafaxine 150 mg 150 mg PO QAM 09/17/22 12/08/22 History capsule,extended release 24 hr canagliflozin 100 mg tablet 100 mg PO QAM #30 tabs 10/28/22 12/08/22 Rx (Invokana) diclofenac sodium 75 mg 75 mg PO BID #60 tabs 10/28/22 12/08/22 Rx tablet,delayed release cyclobenzaprine 5 mg tablet 5 - 10 mg PO HS PRN Muscle Pain 11/19/22 12/08/22 History amlodipine 2.5 mg tablet 2.5 mg PO QAM 12/08/22 12/08/22 History atorvastatin 40 mg tablet 40 mg PO HS 12/08/22 12/08/22 History hydrochlorothiazide 25 mg tablet 25 mg PO QAM 12/08/22 12/08/22 History Past Med/Surg History Medical History Anxiety and depression Arthritis Diabetes type 2, controlled IDDM GERD (gastroesophageal reflux disease) History of COVID-2019- cough, no hospitalization, resolved Hyperlipidemia Hypertension Migraines Neuropathy of both feet Nocturia Obesity Osteoarthritis Skin cancer Melanoma, s/p excision Sleep apnea cpap SVT (supraventricular tachycardia) Admitted to [facility] [place] 08/05/21 for dizziness/vertigo and found to be in SVT. Discharged on tapering amiodarone dose. Surgical History History of appendectomy History of carpal tunnel surgery of right wrist with abcess debridement after surgery History of cataract surgery rt/left History of eye surgery History of left knee replacement (~09/2019) History of surgery Rt wrist irrigation and debridement History of tonsillectomy Hx of arthroscopy of left knee Hx of arthroscopy of right knee Hx of colonoscopy MULTIPLE Hx of total shoulder replacement rt/left Family History Mother Ovarian cancer Breast cancer Aunt Breast cancer Father Diabetes Cardiac disorder Grandmother (Maternal) Metastatic neoplastic disease Other No family history of adverse response to anesthesia Denies family history of Prostate cancer Myocardial infarction Colorectal cancer Social History Smoking Status: Never smoker Second Hand Exposure: No; Do You Dip or Chew Tobacco: No; Hx Alcohol Use: Yes Alcohol type: wine Hx Substance Use: No Preferred Language: Turkish Communication Ability: Effective Visual Impairment: Limited Hearing Ability: Hard of Hearing Creeler Required: No Beliefs That Will Affect Care: None marital status: Current Living Situation: Spouse current occupational status: retired How many Children do You have: 1 Other Information That Helps Us Care for You: No Feels Safe at Home: Yes Safety Concerns: Feels Safe At This Time Childhood Exposure to Second-Hand Smoke: No Diet: regular caffeine: Yes during the past year weight has: remained stable Dental Care, Regularly: Yes Physical Activity Frequency: Does not Exercise Seatbelt Use: sometimes Sunscreen Use: No Assistive Devices: CPAP and Glasses Review of Systems Review of Systems: All systems reviewed & are unremarkable except as noted in HPI & below Physical Exam Constitutional: well developed; + not well nourished and no acute distress Eyes: PERRL, conjunctivae normal, anicteric sclerae ENMT: external ear and nose normal, oropharynx normal Neck: trachea midline, no thyromegaly Respiratory: normal respiratory effort, lungs clear to auscultation Cardiovascular: RRR, no murmur, no edema Gastrointestinal (Abdomen): normal bowel sounds, soft, nontender, no hepatosplenomegaly Skin: no rashes, warm and dry Neurologic: moves all extremities, + focal motor deficit (left foot drop) and awake; not confused Speech / Cognition: normal speech Motor/Sensory: no tremor, no pronator drift and no sensory deficit Psychiatric: A+Ox3, euthymic affect Genitourinary: no CVA tenderness Results & Data Results & Data Vital Signs (Past 12 Hours) Vital Signs Temp Pulse Pulse Resp BP BP Pulse Ox 12/08/22 14:00 76 21 132/93 96 12/08/22 13:00 74 18 124/91 95 12/08/22 14:20 74 12/08/22 12:18 85 12/08/22 11:30 83 25 H 125/98 99 12/08/22 10:50 12/08/22 10:27 86 21 142/100 H 96 12/08/22 09:55 36.8 C 94 H 21 145/96 H 98 O2 Del Method 12/08/22 14:00 Room Air 12/08/22 13:00 Room Air 12/08/22 14:20 12/08/22 12:18 12/08/22 11:30 12/08/22 10:50 Room Air 12/08/22 10:27 Room Air 12/08/22 09:55 Room Air Laboratory Results Abnormal lab results 12/08/22 12/08/22 12/08/22 Range/Units 10:29 10:29 10:29 WBC 15.88 H (4.8-10.8) K/ul RDW Std Deviation 47.4 H (36.4-46.3) fL MPV 9.0 L (9.4-12.4) fL Neut # (Auto) 12.22 H (1.40-6.50) K/uL [place] # (Auto) 0.95 H (0.11-0.59) K/uL D-Dimer 570 H* (0-500) ug/L FEU BUN 35 H (6-23) mg/dl BUN/Creatinine Ratio 38.0 H (10-20) Glucose 146 H (70-99(Fasting)) mg/dl Ur Specific Kimberly (1.000-1.030) Urine Protein (Negative) Urine Glucose (UA) (Negative) U Epithel Cells (Auto) (0-5) /lpf 12/08/22 Range/Units 10:29 WBC (4.8-10.8) K/ul RDW Std Deviation (36.4-46.3) fL MPV (9.4-12.4) fL Neut # (Auto) (1.40-6.50) K/uL [place] # (Auto) (0.11-0.59) K/uL D-Dimer (0-500) ug/L FEU BUN (6-23) mg/dl BUN/Creatinine Ratio (10-20) Glucose (70-99(Fasting)) mg/dl Ur Specific Kimberly 1.035 H (1.000-1.030) Urine Protein 2+ H (Negative) Urine Glucose (UA) 3+ H (Negative) U Epithel Cells (Auto) 10-20 H (0-5) /lpf Diagnostic Findings SINGLE VIEW CHEST CLINICAL HISTORY: Atypical chest pain FINDINGS: An AP, portable, upright chest radiograph is compared to study dated 08/12/2011 and correlated with chest CT dated 12/10/2019. The examination is degraded by portable technique and apical lordotic positioning. The heart is moderately enlarged noting atherosclerotic calcification of the thoracic aorta. The pulmonary vasculature is noncongested. There is bibasilar scarring/atelectasis. No airspace consolidation or large pleural effusion is identified. No pneumothorax is seen. The skeletal structures are osteopenic. The bony thorax is grossly intact. Bilateral shoulder arthroplasties are in place. IMPRESSION: Mild cardiomegaly with no acute cardiopulmonary abnormality identified. CT ANGIOGRAM OF THE CHEST CLINICAL HISTORY: Atypical chest pain. Dyspnea. Dizziness. Leukocytosis. COMPARISON STUDY: Chest x-ray dated 12/08/2022. Chest CT dated 12/10/2019. TECHNIQUE: Following the IV administration of 112 cc of Optiray 320, CT angiogram of the chest was performed from the upper abdomen to the thoracic inlet utilizing the pulmonary embolus protocol. Images are reviewed in the axial, sagittal, and coronal planes. 3-D MIPS images are created and assessed. IV contrast was administered without complication. A dose lowering technique was utilized adhering to the principles of ALARA. CT DOSE: 2597.86 mGy.cm FINDINGS: Thyroid: Normal in size and heterogeneous in attenuation. Thoracic aorta: There is mild atherosclerotic calcification of the thoracic aorta, with is normal in caliber and demonstrates standard 3-vessel arch anatomy. No dissection is seen. Pulmonary vasculature: The pulmonary trunk is normal in caliber. There are no filling defects identified in main, lobar, or segmental pulmonary branches to suggest pulmonary embolus. Heart: The heart is mildly enlarged noting trace pericardial effusion. The coronary arteries are densely calcified. Lungs and pleural spaces: There is no airspace consolidation or pleural effusion. Dependent atelectasis is seen bilaterally. The trachea and central airways are patent. A 3 mm right lower lobe pulmonary nodule image #140 is unchanged from 12/10/2019, as is a 3 mm right upper lobe nodule on image #197 and a 4 mm left lower lobe nodule on image #149. These are of low suspicion given 2 years of stability. Mediastinum: There is no mediastinal lymphadenopathy. Neha: Clear. Axillae: There is no axillary lymphadenopathy. Upper abdomen: There are tiny calcified gallstones with no CT evidence of acute cholecystitis. The liver appears steatotic. A small hiatal hernia is noted Skeletal structures: The skeletal structures are osteopenic. Mild degenerative change is noted in the spine. No lytic or blastic bony lesions are seen. There are bilateral shoulder arthroplasties. IMPRESSION: 1. There is no evidence of pulmonary embolus in the main, lobar, or segmental pulmonary arteries. 2. There is no airspace consolidation or pleural effusion. 3. Cardiomegaly advanced coronary artery atherosclerosis. 4. Additional findings as above. ABDOMEN AND PELVIS CT WITH IV CONTRAST CT DOSE: HISTORY: Generalized abdominal pain. Leukocytosis. TECHNIQUE: Multiaxial CT images of the abdomen and pelvis were performed following the use of intravenous contrast. A dose lowering technique was utilized adhering to the principles of ALARA. COMPARISON STUDY: Abdomen and pelvis CT 08/09/2016. FINDINGS: There is a stable 4 mm nodule within the left lower lobe on image 27. Therefore, this is likely benign. The lung bases will be reported on the same day chest CT. No pneumoperitoneum. No pneumatosis. No acute fractures identified. Increase in size in a 2.6 cm hypodense lesion within the uncinate process of the pancreas. This previously measured 2.0 cm. There is a 13 mm cystic lesion at the pancreatic tail in image 121 which is also slightly increased in size previously measuring 11 mm. No enhancing pancreatic masses identified. The liver, spleen, and adrenal glands unremarkable. There are few punctate gallstones. No gallbladder wall thickening. A few small bilateral peripelvic cysts are again noted. Decrease in size in the now 2.3 cm hypodense lesion within the left kidney. This contains a small amount of peripheral calcification. This favors a cyst. No hydronephrosis. The main portal vein is patent. Normal caliber abdominal aorta. No retroperitoneal lymphadenopathy. The bladder is unremarkable. No pelvic free fluid or pelvic lymphadenopathy. Colonic diverticulosis. No evidence for acute diverticulitis. No bowel wall thickening or obstruction. Prior appendectomy. IMPRESSION: 1. No bowel wall thickening or obstruction. 2. Colonic diverticulosis. No evidence for acute diverticulitis. 3. Cholelithiasis. No gallbladder wall thickening. 4. Increase in size in the cystic lesions within the pancreas with the largest at the uncinate process of the pancreas measuring 2.6 cm. These favor cystic neoplasms such as serous cystadenomas or side branch intraductal papillary mucinous neoplasms. Follow-up nonemergent GI consultation recommended for further evaluation. Medications Administered ER Medications Given: ASA 324mg PO NSS 500ml bolus ECG Rate (beats per minute): 82 Rhythm: normal sinus Findings: no acute ischemic change Comparison ECG Date: from (Jul 29, 2022) Change: the following changes noted (PACs no longer present) Code Status & VTE Plan Code Status Full VTE Prophylaxis Plan VTE Prophylaxis will be ordered: Yes PG Care Time/CCT Total # of Minutes Spent Total Time Spent with Patient: Total time spent is greater than 50% in coordination of care (as documented) at patient's floor/unit and/or counseling patient: Coding Level of Care Code 04737 INT INP/OBS CARE 3/75MIN Diagnoses Shortness of breath on exertion R06.02 Fatigue R53.83 Leucocytosis D72.829 Pancreatic mass K86.89 Hyperlipidemia E78.5 GERD (gastroesophageal reflux disease) K21.9 Hypertension, goal below 140/90 I10 Type 2 diabetes mellitus treated with insulin E11.9; Z79.4 Anxiety F41.9 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
[2022-12-08 16:14] LABS: Troponin I High Sensitivity 6.3 pg/ml (0-20)
[2022-12-08 16:35] LABS: C Reactive Protein < 0.50 mg/dl (0-0.5)
--- NOTE | 2022-12-08 17:03 | CT Scan Report ---
CT SCAN OF THE BRAIN WITHOUT IV CONTRAST CLINICAL HISTORY: Vertigo. COMPARISON STUDY: CT of the brain dated 08/05/2019. MRI of the brain dated 02/25/2021. TECHNIQUE: Unenhanced axial CT scan of the brain is performed from the vertex to the skull base. A do se lowering technique was utilized adhering to the principles of ALARA. CT DOSE: 614.27 mGy.cm FINDINGS: Brain parenchyma: There is age-related involutional change noting minimal subcortical and periventric ular microangiopathic disease. There is no hemorrhage, mass effect, or evidence of acute territorial ischemia by CT criteria. 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 Richter-white matter different iation is preserved. No extra-axial fluid collection is seen. Ventricles, sulci, cisterns: Prominent secondary to involutional change. Intracranial vasculature: There is atherosclerotic calcification of the cavernous carotid and vertebr al arteries. Calvarium: Unremarkable. Sinuses and mastoids: The visualized paranasal sinuses are clear. The mastoid air cells are well pneu matized. Orbits: The bony orbits are grossly intact. There is a left ocular lens implant. IMPRESSION: There is no hemorrhage, mass effect, or evidence of acute territorial ischemia by CT zachariah fisher. ACT 112: Negative or not required by law. Electronically signed by: Gabriel Easley M.D. 12/08/2022 5:02 PM
[2022-12-08 17:28] LABS: Lyme Ab IgG w/WB Rflx Negative (Negative); Lyme Ab IgM w/WB Rflx Negative (Negative)
[2022-12-08 17:29] LABS: Procalcitonin < 0.05 ng/ml (0-0.5)
[2022-12-08] MEDS ORDERED: GLUCOSE 40% GEL 15 GM TUBE PO PRN (18:58)
[2022-12-08] MEDS ORDERED: ACETAMINOPHEN 325 MG TAB PO PRN (18:58)
[2022-12-08] MEDS ORDERED: DEXTROSE 50% 50 ML SYRINGE IV PRN (18:58)
[2022-12-08] MEDS ORDERED: CARBOHYDRATES FOR HYPOGLYCEMIA PO PRN (18:58)
[2022-12-08] MEDS ORDERED: GLUCOSE 10 TAB/TUBE PO PRN (18:58)
[2022-12-08] MEDS ORDERED: GLUCAGON FOR INJ 1 MG VIAL SQ PRN (18:58)
[2022-12-08] MEDS: INSULIN ASPART PER UNIT CHARGE SC SCH ×2 (19:23→20:31)
[2022-12-08] MEDS: PANTOprazole 40 MG TAB PO SCH (20:26)
[2022-12-08] MEDS ORDERED: LANTUS PER UNIT CHARGE SQ SCH (21:00)
[2022-12-08] MEDS ORDERED: TAMSULOSIN HCL 0.4 MG CAP PO SCH (21:00)
[2022-12-08] MEDS ORDERED: ATORVASTATIN 40 MG TAB PO SCH (21:00)
[2022-12-09] MEDS: INSULIN ASPART PER UNIT CHARGE SC SCH ×3 (07:52→16:43)
[2022-12-09] MEDS: PANTOprazole 40 MG TAB PO SCH (08:04)
[2022-12-09 08:20] LABS: Basophils # (auto) 0.03 K/uL (0-0.2); Basophils % (auto) 0.2 %; Eosinophils # (auto) 0.08 K/uL (0-0.50); Eosinophils % (auto) 0.6 %; Hematocrit (blood only) 49.5 % (42.0-52.0); Hemoglobin 17.1 g/dl (14.0-18.0); Immature Granulocytes # (auto) 0.06 K/uL (0.01-0.20); Immature Granulocytes % (auto) 0.4 %; Lymphocytes % (auto) 19.9 %; Mean Corpuscular Hemoglobin 31.4 pg (25.0-34.0); Mean Corpuscular Hgb Conc 34.5 g/dL (32.0-36.0); Mean Corpuscular Volume 90.8 fL (80.0-100.0); Mean Platelet Volume 9.1 fL (9.4-12.4); Monocytes # (auto) 0.92 K/uL (0.11-0.59); Monocytes % (auto) 6.3 %; Neutrophils # (auto) 10.55 K/uL (1.40-6.50); Neutrophils % (auto) 72.6 %; Platelet Count 342 K/uL (130-400); RDW Coefficient of Variation 14.2 % (11.5-14.5); RDW Standard Deviation 47.4 fL (36.4-46.3); Red Blood Count 5.45 M/uL (4.70-6.10); White Blood Count 14.54 K/ul (4.8-10.8)
[2022-12-09 08:31] LABS: Albumin Globulin Ratio 1.2 (0.9-2); Albumin Level 4.2 gm/dl (3.4-5.0); BUN Creatinine Ratio 32.9 (10-20); Bilirubin,Total 0.9 mg/dl (0.2-1.0); Calcium 9.3 mg/dl (8.6-10.3); Chol HDL Ratio 3.7 (0-5); Creatinine Clr Calc Pharmacy 101.7 ml/min; Est GFR (African American) 104.6 ml/min; Est GFR (Non-African American) 90.2 ml/min; Globulin 3.4 gm/dl (2.5-4.0); Magnesium 2.1 mg/dl (1.7-2.4); Phosphorus 3.5 mg/dl (2.5-4.9); Potassium 3.9 mmol/L (3.5-5.1); Total Protein 7.6 gm/dl (6.0-8.3)
[2022-12-09] MEDS ORDERED: SODIUM CHLORIDE 0.9% 1000ML 1,000 ML IV ONE (08:45)
[2022-12-09] MEDS ORDERED: hydroCHLOROthiazide 25 MG TAB PO SCH (09:00)
[2022-12-09] MEDS ORDERED: VENLAFAXINE HCL XR 150 MG CAPXR PO SCH (09:00)
[2022-12-09] MEDS ORDERED: ASPIRIN 81 MG ECTAB PO SCH (09:00)
[2022-12-09] MEDS ORDERED: amLODIPine BESYLATE 5 MG TAB PO SCH (09:00)
[2022-12-09] MEDS ORDERED: ENOXAPARIN INJ 40 MG/0.4 ML SYR SQ SCH (09:00)
[2022-12-09] MEDS ORDERED: DICLOFENAC SODIUM 75 MG TABCR PO SCH (09:00)
[2022-12-09] MEDS ORDERED: MELOXICAM 7.5 MG TAB PO SCH (09:00)
[2022-12-09 09:34] LABS: Estimated Average Glucose 160 mg/dl; Hemoglobin A1C 7.2 % (4.5-5.6)
[2022-12-09] MEDS ORDERED: METOPROLOL TARTRATE 1 MG/ML VIAL IV ONE (10:15)
[2022-12-09] MEDS ORDERED: NITROGLYCERIN SL 0.4 MG/TAB TAB ONE (10:15)
[2022-12-09] MEDS ORDERED: ATROPINE SULFATE 0.1 MG/ML 10ML SYR IV ONE (10:15)
[2022-12-09] MEDS ORDERED: DOBUTamine HCL 12.5 MG/ML 20 ML VIAL IV ONE (10:15)
--- NOTE | 2022-12-09 12:34 | Gastrointestinal Consultation ---
Date of Consultation December 09, 2022 Assessment & Plan (1) Pancreatic mass: (2) Shortness of breath on exertion: (3) Early satiety: (4) Unintentional weight loss: Plan Diff dx: malignancy vs PUD vs gastritis vs gastroparesis vs other. -Await cardiac work up. -Outpatient EGD/EUS to be arranged by [facility]. -Continue Pantoprazole 40 mg BID. -Continue supportive care. Thank you for allowing us to participate in the care of this patient. If you have any questions or concerns, please do not hesitate to contact us. Supervising Physician Co-Signing Physician Notes Agree with ROMELIA Casey as above Abd: Soft, NT, ND, +BS Continue current therapy Outpatient EGD/EUS with [facility] History of Present Illness Reason for Consultation: Pancreatic cyst, fullness and early satiety Requesting Physician: Dr. Martinez Attending Physician: Rob Valdez MD History of Present Illness Patient is a very pleasant 67 y.o. male with a history of colon polyps, pancreatic cysts, DM, GERD, HLD, and arthritis admitted with shortness of breath. He did undergo a cardiac work up this morning with echo and stress testing. Results are pending. Additionally, he reports that over the past few weeks, he has been losing weight unintentionally. Per his , he has gone down 2 pant sizes over the past 2 weeks. There is associated early satiety and nausea. No vomiting. Denies any abdominal pain. Traditionally, he has been noted to have tendency toward chronic diarrhea but has been having more issues with constipation recently. Last colonoscopy was performed by Dr. Coleman on 09/22/22 and was significant only for diverticulosis and internal hemorrhoids. CT on admission reviewed and demonstrated cholelithiasis without acute cholecystitis. Of note, a pancreatic head cyst was noted to have interval increase in size to 2.6cm and pancreatic tail lesion with increase from 11 to 13mm. Mild leukocytosis. Normal H&H, liver panel and lipase. He is on chronic NSAID therapy for arthritis. Allergies Allergy/AdvReac Type Severity Reaction Status Date / Time lisinopril Allergy Severe ANGIOEDEMA Verified 12/08/22 13:44 Home Medications Medication Instructions Recorded Confirmed Type acetaminophen 650 mg 650 mg PO Q8H PRN Pain 03/31/18 12/08/22 History tablet,extended release (Tylenol 8 Hour) omeprazole 20 mg tablet,delayed 20 mg PO BID PRN REFLUX 06/29/19 12/08/22 History release SHORT COCK UP WRIST BRACE #2 ea 02/24/21 12/08/22 Rx CPAP Machine See Rx Instructions .Route 10/21/21 12/08/22 Rx .COMPLEX #1 ea pen needle, diabetic 32 gauge x #100 ea 07/13/22 12/08/22 Rx 5/32" (BD Ultra-Fine Kylah Pen Needle) tamsulosin 0.4 mg capsule 0.8 mg PO HS #180 caps 08/23/22 12/08/22 Rx insulin glargine 100 unit/mL (3 20 unit subcut QPM 09/17/22 12/08/22 History mL) subcutaneous pen (Lantus Solostar U-100 Insulin) venlafaxine 150 mg 150 mg PO QAM 09/17/22 12/08/22 History capsule,extended release 24 hr canagliflozin 100 mg tablet 100 mg PO QAM #30 tabs 10/28/22 12/08/22 Rx (Invokana) diclofenac sodium 75 mg 75 mg PO BID #60 tabs 10/28/22 12/08/22 Rx tablet,delayed release cyclobenzaprine 5 mg tablet 5 - 10 mg PO HS PRN Muscle Pain 11/19/22 12/08/22 History amlodipine 2.5 mg tablet 2.5 mg PO QAM 12/08/22 12/08/22 History atorvastatin 40 mg tablet 40 mg PO HS 12/08/22 12/08/22 History hydrochlorothiazide 25 mg tablet 25 mg PO QAM 12/08/22 12/08/22 History Patient History Medical History Anxiety and depression Arthritis Diabetes type 2, controlled IDDM GERD (gastroesophageal reflux disease) History of COVID-19 2019- cough, no hospitalization, resolved Hyperlipidemia Hypertension Migraines Neuropathy of both feet Nocturia Obesity Osteoarthritis Skin cancer Melanoma, s/p excision Sleep apnea cpap SVT (supraventricular tachycardia) Admitted to [facility] 08/05/21 for dizziness/vertigo and found to be in SVT. Discharged on tapering amiodarone dose. Surgical History History of appendectomy History of carpal tunnel surgery of right wrist with abcess debridement after surgery History of cataract surgery rt/left History of eye surgery History of left knee replacement (~09/2019) History of surgery Rt wrist irrigation and debridement History of tonsillectomy Hx of arthroscopy of left knee Hx of arthroscopy of right knee Hx of colonoscopy MULTIPLE Hx of total shoulder replacement rt/left Family History Mother Ovarian cancer Breast cancer Aunt Breast cancer Father Diabetes Cardiac disorder Grandmother (Maternal) Metastatic neoplastic disease Other No family history of adverse response to anesthesia Denies family history of Prostate cancer Myocardial infarction Colorectal cancer Social History Smoking Status: Never smoker Second Hand Exposure: No; Do You Dip or Chew Tobacco: No; Hx Alcohol Use: Yes Alcohol type: wine Hx Substance Use: No Preferred Language: Montenegrin Communication Ability: Effective Visual Impairment: Limited Hearing Ability: Hard of Hearing Waterside Worker Required: No Beliefs That Will Affect Care: None marital status: Current Living Situation: Spouse current occupational status: retired How many Children do You have: 1 Other Information That Helps Us Care for You: No Feels Safe at Home: Yes Safety Concerns: Feels Safe At This Time Childhood Exposure to Second-Hand Smoke: No Diet: regular caffeine: Yes during the past year weight has: remained stable Dental Care, Regularly: Yes Physical Activity Frequency: Does not Exercise Seatbelt Use: sometimes Sunscreen Use: No Assistive Devices: CPAP Review of Systems Review of Systems: All systems reviewed & are unremarkable except as noted in HPI & below Physical Exam Constitutional: WD/WN, vitals as above Eyes: EOM intact bilaterally Neck: normal appearance Respiratory: normal respiratory effort, lungs clear to auscultation Cardiovascular: Rate/Rhythm: regular rate and regular rhythm Heart Sounds: no gallop and no murmur Gastrointestinal (Abdomen): normal bowel sounds, soft, nontender, no hepatosplenomegaly Inspection/Auscultation: abdomen not distended Musculoskeletal: Extremities: no cyanosis no lower extremity edema Skin: no rashes, warm and dry Neurologic: moves all extremities Psychiatric: A+Ox3, euthymic affect Results & Data Vital Signs (Past 12 Hours) Vital Signs Temp Pulse Pulse Resp BP Pulse Ox O2 Del Method 12/09/22 07:21 62 12/09/22 06:26 36.5 C 69 18 142/92 H 96 Room Air 12/09/22 02:47 36.7 C 85 18 147/102 H 96 BiPAP Diagnostic Findings Laboratory Results WBC 14.54 K/ul (4.8-10.8) H 12/09/22 07:46 RBC 5.45 M/uL (4.70-6.10) 12/09/22 07:46 Hgb 17.1 g/dl (14.0-18.0) 12/09/22 07:46 Hct 49.5 % (42.0-52.0) 12/09/22 07:46 MCV 90.8 fL (80.0-100.0) 12/09/22 07:46 MCH 31.4 pg (25.0-34.0) 12/09/22 07:46 MCHC 34.5 g/dL (32.0-36.0) 12/09/22 07:46 RDW Std Deviation 47.4 fL (36.4-46.3) H 12/09/22 07:46 RDW Coeff of Rudy 14.2 % (11.5-14.5) 12/09/22 07:46 Plt Count 342 K/uL (130-400) 12/09/22 07:46 MPV 9.1 fL (9.4-12.4) L 12/09/22 07:46 Immature Gran % (Auto) 0.4 % 12/09/22 07:46 Neut % (Auto) 72.6 % 12/09/22 07:46 Lymph % (Auto) 19.9 % 12/09/22 07:46 Mcdowell % (Auto) 6.3 % 12/09/22 07:46 Eos % (Auto) 0.6 % 12/09/22 07:46 Baso % (Auto) 0.2 % 12/09/22 07:46 Neut # (Auto) 10.55 K/uL (1.40-6.50) H 12/09/22 07:46 Lymph # (Auto) 2.90 K/uL (1.2-3.4) 12/09/22 07:46 Mcdowell # (Auto) 0.92 K/uL (0.11-0.59) H 12/09/22 07:46 Eos # (Auto) 0.08 K/uL (0-0.50) 12/09/22 07:46 Baso # (Auto) 0.03 K/uL (0-0.2) 12/09/22 07:46 Immature Gran # (Auto) 0.06 K/uL (0.01-0.20) 12/09/22 07:46 ESR 39 mm/hr (0-20) H 12/08/22 10:29 D-Dimer 570 ug/L FEU (0-500) H* 12/08/22 10:29 Sodium 138 mmol/L (136-145) 12/09/22 07:46 Potassium 3.9 mmol/L (3.5-5.1) 12/09/22 07:46 Chloride 104 mmol/L (98-107) 12/09/22 07:46 Carbon Dioxide 27 mmol/L (21-32) 12/09/22 07:46 Anion Gap 7 (3-11) 12/09/22 07:46 BUN 27 mg/dl (6-23) H 12/09/22 07:46 Creatinine 0.82 mg/dl (0.6-1.4) 12/09/22 07:46 Est Cr Clr Drug Dosing 101.7 ml/min 12/09/22 07:46 Est GFR ( Amer) 104.6 ml/min 12/09/22 07:46 Est GFR (Non-Af Amer) 90.2 ml/min 12/09/22 07:46 BUN/Creatinine Ratio 32.9 (10-20) H 12/09/22 07:46 Glucose 145 mg/dl (70-99(Fasting)) H 12/09/22 07:46 POC Glucose 141 mg/dl (70-99) H 12/09/22 11:24 Estimat Average Glucose 160 mg/dl 12/09/22 07:46 Hemoglobin A1c 7.2 % (4.5-5.6) H 12/09/22 07:46 Calcium 9.3 mg/dl (8.6-10.3) 12/09/22 07:46 Phosphorus 3.5 mg/dl (2.5-4.9) 12/09/22 07:46 Magnesium 2.1 mg/dl (1.7-2.4) 12/09/22 07:46 Total Bilirubin 0.9 mg/dl (0.2-1.0) 12/09/22 07:46 AST 15 U/L (13-39) 12/09/22 07:46 ALT 26 U/L (7-52) 12/09/22 07:46 Alkaline Phosphatase 85 U/L (34-104) 12/09/22 07:46 Troponin I High Sens 6.3 pg/ml (0-20) 12/08/22 15:33 C-Reactive Protein Cancelled 12/08/22 16:07 Total Protein 7.6 gm/dl (6.0-8.3) 12/09/22 07:46 Albumin 4.2 gm/dl (3.4-5.0) 12/09/22 07:46 Globulin 3.4 gm/dl (2.5-4.0) 12/09/22 07:46 Albumin/Globulin Ratio 1.2 (0.9-2) 12/09/22 07:46 Triglycerides 144 mg/dl (0-150) 12/09/22 07:46 Cholesterol 206 mg/dl (0-200) H 12/09/22 07:46 LDL Cholesterol, Calc 121 mg/dl 12/09/22 07:46 VLDL Cholesterol, Calc 29 mg/dl (0-30) 12/09/22 07:46 HDL Cholesterol 56 mg/dl 12/09/22 07:46 Cholesterol/HDL Ratio 3.7 (0-5) 12/09/22 07:46 Lipase 30 U/L (11-82) 12/08/22 10:29 Vitamin B12 460 pg/ml (180-914) 12/09/22 07:46 Procalcitonin < 0.05 ng/ml (0-0.5) 12/08/22 10:29 TSH 1.370 uIu/ml (0.300-4.500) 12/08/22 10:29 Urine Color Dark Yellow 12/08/22 10:29 Urine Appearance Clear (Clear) 12/08/22 10:29 Urine pH 5.5 (4.5-7.5) 12/08/22 10:29 Ur Specific [place] 1.035 (1.000-1.030) H 12/08/22 10:29 Urine Protein 2+ (Negative) H 12/08/22 10:29 Urine Glucose (UA) 3+ (Negative) H 12/08/22 10:29 Urine Ketones Negative (Negative) 12/08/22 10:29 Urine Blood Negative (Negative) 12/08/22 10:29 Urine Nitrite Negative (Negative) 12/08/22 10:29 Urine Bilirubin Negative (Negative) 12/08/22 10:29 Urine Urobilinogen Negative (Negative) 12/08/22 10:29 Ur Leukocyte Esterase Negative (Negative) 12/08/22 10:29 Urine WBC (Auto) 1-5 /hpf (0-5) 12/08/22 10:29 Urine RBC (Auto) 0-4 /hpf (0-4) 12/08/22 10:29 U Hyaline Cast (Auto) 1-5 /lpf (0-5) 12/08/22 10:29 U Epithel Cells (Auto) 10-20 /lpf (0-5) H 12/08/22 10:29 Urine Bacteria (Auto) Negative (Negative) 12/08/22 10:29 Lyme Disease IgG Ab Negative (Negative) 12/08/22 10:29 Lyme Disease IgM Ab Negative (Negative) 12/08/22 10:29 SARS-CoV-2 (PCR) NEGATIVE (Negative) 12/08/22 10:29 Influenza Type A (PCR) Negative (Neg) 12/08/22 10:29 Influenza Type B (PCR) Negative (Neg) 12/08/22 10:29 RSV (RT-PCR) Negative (Neg) 12/08/22 10:29 Impressions Chest X-Ray 12/08/22 10:48 SINGLE VIEW CHEST CLINICAL HISTORY: Atypical chest pain FINDINGS: An AP, portable, upright chest radiograph is compared to study dated 08/12/2011 and correlated with chest CT dated 12/10/2019. The examination is degraded by portable technique and apical lordotic positioning. The heart is moderately enlarged noting atherosclerotic calcification of the thoracic aorta. The pulmonary vasculature is noncongested. There is bibasilar scarring/atelectasis. No airspace consolidation or large pleural effusion is identified. No pneumothorax is seen. The skeletal structures are osteopenic. The bony thorax is grossly intact. Bilateral shoulder arthroplasties are in place. IMPRESSION: Mild cardiomegaly with no acute cardiopulmonary abnormality identified. ACT 112: Negative or not required by law. Electronically signed by: Gabriel Easley M.D. 12/08/2022 11:04 AM Abdomen/Pelvis CT 12/08/22 12:[address] WITH IV CONTRAST CT DOSE: HISTORY: Generalized abdominal pain. Leukocytosis. TECHNIQUE: Multiaxial CT images of the abdomen and pelvis were performed following the use of intravenous contrast. A dose lowering technique was utilized adhering to the principles of ALARA. COMPARISON STUDY: Abdomen and pelvis CT 08/09/2016. FINDINGS: There is a stable 4 mm nodule within the left lower lobe on image 27. Therefore, this is likely benign. The lung bases will be reported on the same day chest CT. No pneumoperitoneum. No pneumatosis. No acute fractures identified. Increase in size in a 2.6 cm hypodense lesion within the uncinate process of the pancreas. This previously measured 2.0 cm. There is a 13 mm cystic lesion at the pancreatic tail in image 121 which is also slightly increased in size previously measuring 11 mm. No enhancing pancreatic masses identified. The liver, spleen, and adrenal glands unremarkable. There are few punctate gallstones. No gallbladder wall thickening. A few small bilateral peripelvic cysts are again noted. Decrease in size in the now 2.3 cm hypodense lesion within the left kidney. This contains a small amount of peripheral calcification. This favors a cyst. No hydronephrosis. The main portal vein is patent. Normal caliber abdominal aorta. No retroperitoneal lymphadenopathy. The bladder is unremarkable. No pelvic free fluid or pelvic lymphadenopathy. Colonic diverticulosis. No evidence for acute diverticulitis. No bowel wall thickening or obstruction. Prior appendectomy. IMPRESSION: 1. No bowel wall thickening or obstruction. 2. Colonic diverticulosis. No evidence for acute diverticulitis. 3. Cholelithiasis. No gallbladder wall thickening. 4. Increase in size in the cystic lesions within the pancreas with the largest at the uncinate process of the pancreas measuring 2.6 cm. These favor cystic neoplasms such as serous cystadenomas or side branch intraductal papillary mucinous neoplasms. Follow-up nonemergent GI consultation recommended for further evaluation. ACT 112: Negative or not required by law. Electronically signed by: Robson Quiles M.D. 12/08/2022 12:55 PM Chest CTA 12/08/22 12:08 CT ANGIOGRAM OF THE CHEST CLINICAL HISTORY: Atypical chest pain. Dyspnea. Dizziness. Leukocytosis. COMPARISON STUDY: Chest x-ray dated 12/08/2022. Chest CT dated 12/10/2019. TECHNIQUE: Following the IV administration of 112 cc of Optiray 320, CT angiogram of the chest was performed from the upper abdomen to the thoracic inlet utilizing the pulmonary embolus protocol. Images are reviewed in the axial, sagittal, and coronal planes. 3-D MIPS images are created and assessed. IV contrast was administered without complication. A dose lowering technique was utilized adhering to the principles of ALARA. CT DOSE: 2597.86 mGy.cm FINDINGS: Thyroid: Normal in size and heterogeneous in attenuation. Thoracic aorta: There is mild atherosclerotic calcification of the thoracic aorta, with is normal in caliber and demonstrates standard 3-vessel arch anatomy. No dissection is seen. Pulmonary vasculature: The pulmonary trunk is normal in caliber. There are no filling defects identified in main, lobar, or segmental pulmonary branches to s uggest pulmonary embolus. Heart: The heart is mildly enlarged noting trace pericardial effusion. The coronary arteries are densely calcified. Lungs and pleural spaces: There is no airspace consolidation or pleural effusion. Dependent atelectasis is seen bilaterally. The trachea and central airways are patent. A 3 mm right lower lobe pulmonary nodule image #140 is unchanged from 12/10/2019, as is a 3 mm right upper lobe nodule on image #197 and a 4 mm left lower lobe nodule on image #149. These are of low suspicion given 2 years of stability. Mediastinum: There is no mediastinal lymphadenopathy. Neha: Clear. Axillae: There is no axillary lymphadenopathy. Upper abdomen: There are tiny calcified gallstones with no CT evidence of acute cholecystitis. The liver appears steatotic. A small hiatal hernia is noted Skeletal structures: The skeletal structures are osteopenic. Mild degenerative change is noted in the spine. No lytic or blastic bony lesions are seen. There are bilateral shoulder arthroplasties. IMPRESSION: 1. There is no evidence of pulmonary embolus in the main, lobar, or segmental pulmonary arteries. 2. There is no airspace consolidation or pleural effusion. 3. Cardiomegaly advanced coronary artery atherosclerosis. 4. Additional findings as above. ACT 112: Negative or not required by law. Electronically signed by: Gabriel Easley M.D. 12/08/2022 12:[address] 12/08/22 16:05 CT SCAN OF THE BRAIN WITHOUT IV CONTRAST CLINICAL HISTORY: Vertigo. COMPARISON STUDY: CT of the brain dated 08/05/2019. MRI of the brain dated 02/25/2021. TECHNIQUE: Unenhanced axial CT scan of the brain is performed from the vertex to the skull base. A dose lowering technique was utilized adhering to the principles of ALARA. CT DOSE: 614.27 mGy.cm FINDINGS: Brain parenchyma: There is age-related involutional change noting minimal subcortical and periventricular microangiopathic disease. There is no hemorrhage, mass effect, or evidence of acute territorial ischemia by CT criteria. 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 Richter-white matter differentiation is preserved. No extra-axial fluid collection is seen. Ventricles, sulci, cisterns: Prominent secondary to involutional change. Intracranial vasculature: There is atherosclerotic calcification of the cavernous carotid and vertebral arteries. Calvarium: Unremarkable. Sinuses and mastoids: The visualized paranasal sinuses are clear. The mastoid air cells are well pneumatized. Orbits: The bony orbits are grossly intact. There is a left ocular lens implant. IMPRESSION: There is no hemorrhage, mass effect, or evidence of acute territorial ischemia by CT criteria. ACT 112: Negative or not required by law. Electronically signed by: Gabriel Easley M.D. 12/08/2022 5:02 PM PG Care Time/CCT Total # of Minutes Spent Total Time Spent with Patient: Total time spent is greater than 50% in coordination of care (as documented) at patient's floor/unit and/or counseling patient: Coding Level of Care Code 30316 INT INP/OBS CARE 3/75MIN Diagnoses Pancreatic mass K86.89 Shortness of breath on exertion R06.02 Early satiety R68.81 Unintentional weight loss R63.4
--- NOTE | 2022-12-09 16:29 | XCELERA ---
[id number] \\[id number]
--- NOTE | 2022-12-09 18:01 | Discharge Summary ---
Date of Service December 09, 2022 Admission HPI Per Admitting Provider Landon Aguiar is a 67 year old male who presents to the ER with progressive worsening shortness of breath, dizziness, decreased energy nausea, urination issues, decreased appetite. He appears to have had a significant decline over the last 3 weeks with nausea, fatigue, decreased appetite, early satiety, diarrhea (only for one day on Tuesday, 8 times), shortness of breath on exertion, abdominal pain on exertion. These symptoms have been progressively getting worse over this time and he has been able to do less and less. He is sleeping for 18- 20 hours a day with 11 hours at night and napping during the day time. He r eports central abdominal pain only after moving objects around in his garage and resting after this feels like he has strained a muscle. No current abdominal pain, nausea or diarrhea. He denies any worsening reflux symptoms. He reports losing 11lb over the period with unintentional weight loss. His main complaint and concern from his is he worsening exercise tolerance with shortness of breath on exertion. He denies any history of asthma, COPD and does not use any inhalers. He is unsure of having chest tightness but his reports he has been complaining of this on exertion in addition. No prior history of GA or stroke in the past. However significant risk factors for this with HTN, diabetes, FRANDY, hyperlipidemia, male and age. His dizziness is difficult to discern whether this is lightheadedness, vertigo or just ambulatory dysfunction. It appears to have been going on longer for around 6 months but much worse in the last 3 weeks as well. Worse when leaning over or getting up but now having room spinning sensations when he is just sitting down. He also reports falling to the left side while walking. His urination issues having been going on for years with nocturia getting up at night every few hours. He takes tamsulosin for this and is under urology. However in the last 3 weeks he has also been having frequent urination during the day time as well. No dysuria, fever, chills, flank pain, change in color or smell. Initial troponin negative and no acute changes on EKG. However given worsening shortness of breath on exertion getting worse over the last 3 weeks he was r eferred to medicine for admission and ongoing management for concern of unstable angina. Principal Diagnosis Pancreatic lesion, find Discharge Exam General: A&Ox3. NAD. Cooperative. HEENT: Atraumatic, normocephalic. Vision and hearing Pulm: CTAB A&P. -wheezes, -rales, -rhonchi. Symmetrical chest rise. No increased work of breathing. No respiratory distress. Cardiac: RRR, -mrg. Radial pulses intact and symmetrical. Abdominal: Nontender, nondistended, soft. BS present. Extremities: Warm, dry. No edema Discharge Data Allergies Allergy/AdvReac Type Severity Reaction Status Date / Time lisinopril Allergy Severe ANGIOEDEMA Verified 12/08/22 13:44 Consultations 12/08/22 13:30 ED Decision to Admit Stat 12/09/22 00:26 Consult Gastroenterology Routine Ordered Studies 12/08/22 12:08 CT Abd and Pelvis [CT abd pelvis IV con only] Stat CT angio chest PE protocol Stat 12/08/22 16:05 CT head/brain wo con Stat Hospital Course (1) Shortness of breath on exertion: Landon presented with worsening shortness of breath with exertion and possible chest tightness with this. He underwent a dobutamine stress test which was normal, and did not show any signs of baseline abnormality on echo or any inducible ischemia. CTA of the chest did not show any evidence of pulmonary embolism or pneumonia. CT of the abdomen did not show any signs of enteritis/cholecystitis/appendicitis, but did show slowly enlarging pancreatic lesions the largest of which was 2.6 cm. This was discussed with gastroenterology who are consulted, patient was recommended for outpatient follow-up for EGDEUS. Patient is aware that these may be reflective of underlying malignancy which could be the cause of his early satiety and weight loss. There is no transaminitis or hyperbilirubinemia. during admission he was not hypoxic, was tolerating a regular diet, did not show evidence of MONTRELL. Patient recognizes the importance of following up for his EGD, and was okay with discharge home. He did have a slightly elevated leukocytosis, however no i nfectious source was identified on imaging and UA was bland. Lyme testing was negative. Return precautions were given to which patient is agreeable and he will also have a follow-up CBC/CMP with his PCP within 1-2 weeks. He had no acute concerns at time of discharge, and felt well. Plan of care was also reviewed with his who was present. (2) Fatigue: As noted Consider stopping Invokana as outpatient as this was recently started prior to onset of symptoms (3) Leucocytosis: No cause for this found on admission. No infection found on CT C/A/P, UA and no cellulitis on exam. No history of autoimmune disease. (4) Pancreatic mass: As noted above (5) Hyperlipidemia: Continue atorvastatin (6) GERD (gastroesophageal reflux disease): Start pantoprazole 40mg PO BID instead of PRN in case this is causing his decreased appetite and early satiety (7) Hypertension, goal below 140/90: Continue amlodipine, HCTZ (8) Type 2 diabetes mellitus treated with insulin: HbA1C 6.8 in April 2022, repeat with AM labs Continue Lantus 20 units HS Novolog: --Goal BSG Range: Low 110 mg/dL, High 140 mg/dL --Correction Factor: 40 mg/dL/unit --Carbohydrate ratio = 13 g/unit --BSGs ACHS if eating, q6h if npo (9) Anxiety: Continue venlafaxine (10) 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 Discharge Plan Discharge Items Patient Disposition: Home - Self-Care Reason For Visit: SOB W EXERTION|DECREASED APPETITE|UNINTENTIONAL WL Discharge Diagnosis: Volume depletion, pancreatic lesion Activity: Per Instructions section Non-emergency contact: Primary Care Provider and Shopper Call non-emergency contact if: you have any medication questions, your symptoms worsen and your pain is not controlled Follow-up/Referrals: Fatoumata Anderson MD [Primary Care Provider] - Diet: Regular and Heart Healthy Addtl Attending Provider Instructions: You are seen in the hospital for exertional shortness of breath and fatigue. A CTA of your chest did not show any evidence of pneumonia or blood clots.A CT of your abdomen showed cystic lesions of the pancreas which had increased in size with the largest being 2.6 cm requiring additional evaluation. There is no evidence of diverticulitis, gallbladder infection (cholecystitis), or other abdominal infection. A dobutamine stress echo was performed based on your symptoms. This was normal and showed normal heart pumping, and normal heart augmentation and reaction to stress. It did not show any evidence of ischemia (this was a normal test). Your case was discussed with GI who are consulted during admission. It is recommended that you have an EGDEUS, which is a type of endoscopy where they can also perform an ultrasound to evaluate pancreatic lesions. You are being referred to the [facility] GI service, who are scheduling this for you for follow-up. At your time of presentation you did not have any unstable findings requiring emergent intervention. If you do not receive a call to confirm this appointment within 1 week, please call the switchboard at [phone] and request to speak to the inpatient care manager rn regarding your appointment. You had a slightly increased white blood cell count without signs of an infectious source. No pneumonia, no abdominal infection, and no urinary fraction were seen on your labs/images. This can be reactive and not reflective of infection, it is also possible that you develop infectious symptoms to direct a source over the next few days. Antibiotics were not indicated during admission; however you should have a repeat CBC in 1 week by your primary care provider. If you develop any new or worsening symptoms, please seek medical reevaluation. It is unclear if your Invokana is contributing to your symptoms. This has been held pending additional work-up, please discuss this with your primary care physician on follow-up If you develop any new or worsening symptoms including fever, chills, sweats, chest pain, chest pressure, difficulty breathing, uncontrolled nausea/vomiting, rash, wheezing, passing out or nearly passing out, bleeding, black/bloody bowel movements, or other new or concerning symptoms please call your primary care physician, or call 911 for re-evaluation in the emergency department if you are very concerned. Pending Studies at Discharge: Yes (EGD-EUS as outpt) Stand-Alone Forms: [employer], Smoking Cessation Medications and DC Order Prescriptions: Continued (DME) pen needle, diabetic [BD Ultra-Fine Kylah Pen Needle] 32 gauge x 5/32" needle See Rx Instructions .ROUTE .MEDSUPPLY Qty: 100 1RF Rx Instructions: Use to inject Lantus once daily tamsulosin 0.4 mg capsule 0.8 mg PO HS Qty: 180 1RF omeprazole 20 mg tablet,delayed release (DR/EC) 20 mg PO BID PRN (Reason: REFLUX) diclofenac sodium 75 mg tablet,delayed release (DR/EC) 75 mg PO BID Qty: 60 5RF (DME) SHORT COCK UP WRIST BRACE Misc See Rx Instructions .Route Qty: 2 0RF Rx Instructions: for CTS CPAP Machine Misc See Rx Instructions .ROUTE .COMPLEX Qty: 1 0RF Rx Instructions: 12 cmH2O, mask fit patient comfort, heated humidification, compliance download capabilities, Elise [place]; cyclobenzaprine 5 mg tablet 5 - 10 mg PO HS PRN (Reason: Muscle Pain) acetaminophen [Tylenol 8 Hour] 650 mg Tablet Extended Release 650 mg PO Q8H PRN (Reason: Pain) atorvastatin 40 mg tablet 40 mg PO HS amlodipine 2.5 mg tablet 2.5 mg PO QAM hydrochlorothiazide 25 mg tablet 25 mg PO QAM venlafaxine 150 mg capsule,extended release 24hr 150 mg PO QAM insulin glargine [Lantus Solostar U-100 Insulin] 100 unit/mL (3 mL) insulin pen 20 unit SQ QPM Patient Comments: pt states taking 20 units now at hs Held Invokana 100 mg tablet 100 mg PO QAM Qty: 30 2RF Hold Instructions: Resume on 01/05/23. Hold and discuss with PCP Discharge Orders: Discharge Order (Routine); Ordered 12/09/22 Ordered By: Rob Butterfield/Other Patient Handouts: Managing Type 2 Diabetes, Special Foot Care for Diabetes Admission Data Admit Date/Time: 12/08/22 16:14 Attending Provider: Rob Valdez Admit Provider: Manuel Martinez Primary Care Provider: Fatoumata Anderson Other Providers: Manuel Martinez ; Donny Coleman Coding Level of Care Code 19519 INP/OBS DISCH >30 MIN Diagnoses Shortness of breath on exertion R06.02 Fatigue R53.83 Leucocytosis D72.829 Pancreatic mass K86.89 Hyperlipidemia E78.5 GERD (gastroesophageal reflux disease) K21.9 Hypertension, goal below 140/90 I10 Type 2 diabetes mellitus treated with insulin E11.9; Z79.4 Anxiety F41.9 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
== END 2022-12-09 18:43 | disposition home or self-care (01) | DRG 311 ==
LOC: ED 09:42 → INTOOBSV 16:14 → SUATTDRO 16:14 → 2W 16:14